=== PATIENT | female | born 1960 | race Two or more races ===

== ENCOUNTER 2020-08-12 07:54 | Outpatient (REF) | payer OTHER, SELFPAY | END 2020-08-12 07:55 | disposition home or self-care (01) | LOC: HO.LAB 07:54 | PROVIDERS: PCP Internal Medicine; Visit Provider Internal Medicine | DX: Z20.828 Contact with and (suspected) exposure to other viral communicable diseases (principal) | CPT/HCPCS: 36415; 87635 ==

== ENCOUNTER 2020-10-06 09:05 | Outpatient (REF) | payer OTHER, SELFPAY ==
[2020-10-06 11:19] LABS: Alanine Aminotransferase 13 U/L (0-31); Albumin Level 4.5 g/dL (3.5-5.0); Alkaline Phosphatase 70 U/L (39-117); Anion Gap 14 (12-20); Aspartate Amino Transferase 16 U/L (5-31); Bilirubin Total 0.7 mg/dL (0.0-1.0); Blood Urea Nitrogen 26 mg/dL (9-16); Calcium 8.2 mg/dL (8.4-10.2); Carbon Dioxide 31 mmol/L (22-29); Chloride 101 mmol/L (96-108); Cholesterol 198 mg/dL; Estimated Glomerular Filt Rate > 60; Glucose Fasting 91 mg/dL (60-99); HDL Cholesterol 52 mg/dL; LDL Cholesterol Calculated 112 mg/dl; Potassium 4.2 mmol/l (3.3-5.1); Sodium 142 mmol/L (135-145); Total Protein 7.7 g/dL (6.5-8.0); Triglycerides 170 mg/dL
[2020-10-06 11:40] LABS: TSH reflex Free T4 0.22 mIU/mL (0.32-4.0); Vitamin D 25-OH Total 38.5 ng/mL (>30)
[2020-10-06 12:26] LABS: Free T4 (Free Thyroxine) 1.37 ng/dL (0.71-1.85)
== END 2020-10-06 09:06 | disposition home or self-care (01) ==
LOC: HO.LAB 09:05
PROVIDERS: PCP Internal Medicine; Visit Provider Internal Medicine
DX: I10 Essential (primary) hypertension (principal); E55.9 Vitamin D deficiency, unspecified; E03.9 Hypothyroidism, unspecified
CPT/HCPCS: 80053; 80061; 82306; 84439; 84443

== ENCOUNTER 2020-10-14 13:23 | Outpatient (REF) | payer OTHER, SELFPAY ==
--- NOTE | 2020-10-14 | MM_ITS ---
EXAMINATION: MM SCREENING DIGITAL BREAST TOMOSYNTHESIS, BILATERAL CLINICAL INFORMATION: Screening. Asymptomatic. Previous reports indicate history of breast surgery. Previous reports indicate history of left breast biopsy. The lifetime risk of breast cancer based on the Tyrer-Cuzick Model is 6%. COMPARISON: Mammography: 02/09/19, 02/07/18, 01/07/17, 03/13/15 TECHNIQUE: Digital breast tomosynthesis is performed in both the craniocaudal and mediolateral oblique views along with computer-aided detection (CAD). Synthesized 2D images are generated from the tomosynthesis. FINDINGS: There are scattered areas of fibroglandular density (ACR BI-RADS breast composition Category b). Right breast: There is an unchanged focal asymmetry in the upper outer right breast. No new suspicious right breast finding. Left breast: There is no change in the architecture in the superficial upper left breast. No new suspicious left breast finding MM/MM tomosynthesis screening BI IMPRESSION: No mammographic evidence of malignancy. No suspicious interval change. ASSESSMENT: BI-RADS 2: Benign RECOMMENDATION: Routine annual mammography screening. This patient's information was entered into a reminder system with a target due date for their next mammogram.
== END 2020-10-14 13:24 | disposition home or self-care (01) ==
LOC: HO.MAMMO 13:23
PROVIDERS: PCP Internal Medicine; Visit Provider Internal Medicine
DX: Z12.31 Encounter for screening mammogram for malignant neoplasm of breast (principal)
CPT/HCPCS: 77063; 77067

== ENCOUNTER 2020-10-19 13:30 | Emergency (ER) | payer OTHER, SELFPAY ==
[2020-10-19 13:45] VITALS: BP 149/89; PULSE 74; RESP 18; TEMP 36.6; O2SAT 99; BMI 25.4
[2020-10-19 16:11] VITALS: BP 151/85; PULSE 77; RESP 16; O2SAT 99
--- NOTE | 2020-10-19 16:11 | ED.DIZZY ---
HPI - Dizziness General Chief Complaint: Dizziness Stated Complaint: Dizziness Time Seen by Provider: 10/19/20 16:11 Source: patient Mode of arrival: ambulatory Limitations: no limitations History of Present Illness HPI Narrative: Patient been feeling dizzy for last 1 week started gradually specially moving her head to the right side also has ringing in the left ear with denies any headache. Also patient complaining of weakness no cough or COVID will get symptom no nausea no vomiting MD elicited complaint: dizziness Onset (ago): week(s) (1) Timing: gradual onset Description: sense of movement Context: change in body position Exacerbating factors: change in body position Relieving factors: remaining still Related Data Previous Rx's Medication Instructions Recorded calcitriol 0.25 mcg capsule 0.25 mcg PO BID 90 Days #180 cap 10/15/20 citalopram 40 mg tablet 20 mg PO DAILY 90 Days #45 tab 10/15/20 hydrochlorothiazide 25 mg tablet 25 mg PO DAILY 90 Days #90 tab 10/15/20 levothyroxine 100 mcg capsule 100 mcg PO DAILY 90 Days #90 cap 10/15/20 Allergies Allergy/AdvReac Type Severity Reaction Status Date / Time prednisone AdvReac Unknown weakness, Verified 10/15/20 15:27 facial flushing Review of Systems Review of Systems: REVIEW OF SYSTEMS: Pertinent positives and negatives are stated above in the history. GEN: no fevers, chills, fatigue HEENT: no nasal congestion, sore throat, ear pain NEURO: no headache,focal weakness PULM: no cough, shortness of breath CV: no chest pain, palpitations, LE edema ABD: no abdominal pain, nausea, vomiting, diarrhea : no dysuria, urgency, frequency SKIN: no rash ROS otherwise negative x 10 PMFSH Past Medical History Medical History (Updated 10/15/20 @ 15:32 by Brianna Cruz MD) Essential hypertension Hypocalcemia Hypovitaminosis D Surgical History (Updated 10/09/20 @ 12:22 by JOI Dwyer) History of breast biopsy History of section History of thyroidectomy Family History Family History (Updated 10/09/20 @ 12:23 by JOI Dwyer) Father Diabetes Stroke Prostate cancer Mother No problems noted. Maternal Grandmother Medical history unknown Social History Social History Alcohol intake: never Smoking Status: Never smoker Smoked in Last 30 Days: No Use of substances other than those prescribed or required for medical reasons: No Advance Directives: No Advance Directives Information Provided: No Physical Exam Vital Signs: Vital Signs: Last Vital Signs Temp 97.8 F 10/19/20 13:45 Pulse 77 10/19/20 16:11 Resp 16 10/19/20 16:11 BP 151/85 H 10/19/20 16:11 Pulse Ox 99 10/19/20 16:11 Body Mass Index 25.4 Appearance: Alert. Oriented X3. No acute distress. Eyes: Pupils equal, round and reactive to light. No nystagmus ENT: Pharynx normal. Tympanic membrane normal bilateral Neck: Normal inspection. Neck supple. CVS: Normal heart rate and rhythm. Pulses normal. Respiratory: No respiratory distress. Breath sounds normal. Abdomen: Soft and nontender. Skin: Skin warm and dry. Normal skin color. Normal skin turgor. Extremities: No lower extremity edema. Good range of movement Neuro: Oriented X 3. No motor deficit. No sensory deficit. No cerebellar signs MDM - Dizziness MDM Narrative Medical decision making narrative: Patient with symptoms matching BPV labs are stable COVID is negative will discharge patient home on meclizine. Patient ambulating steady gait in the ER Differential Diagnosis Differential diagnosis: Likely benign paroxysmal positional vertigo Lab Data Attestation: I reviewed the patient's lab results. Result diagrams: 10/19/20 16:59 10/19/20 16:59 Labs: Lab Results 10/19/20 10/19/20 10/19/20 Range/Units 16:56 16:59 16:59 WBC 6.8 (4.8-10.8) X10*3/uL RBC 4.56 (4.20-5.50) X10*6/uL Hgb 14.3 (12.0-16.0) g/dl Hct 42.1 (37-47) % MCV 92.3 (80-98) fL MCH 31.4 (27.0-33.0) pg MCHC 34.0 (31.0-35.0) g/dl RDW 11.6 (11.0-16.0) % Plt Count 222 (160-400) X10*3/uL MPV 11.3 (9.4-12.3) fL Immature Gran % (Auto) 0.1 (0.0-0.4) % Neut % (Auto) 53.4 (45-73) % Lymph % (Auto) 36.7 (20-40) % [place] % (Auto) 8.9 (2-11) % Eos % (Auto) 0.6 (0-4) % Baso % (Auto) 0.3 (0-2) % Lymph # (Auto) 2.5 (1.2-4.9) X10*3/uL [place] # (Auto) 0.6 (0.1-1.2) X10*3/uL Eos # (Auto) 0.0 (0.0-0.4) X10*3/uL Baso # (Auto) 0.0 (0.0-0.2) X10*3/uL Abs Immat Gran (auto) 0.01 (0.00-0.03) X10*3/uL Absolute Neuts (auto) 3.6 (2.0-8.3) X10*3/uL Absolute Nucleated RBC 0.000 (0.0-0.012) X10*3/uL Nucleated RBC % (auto) 0.0 (0.0-0.2) /100WBC Sodium 143 (135-145) mmol/L Potassium 3.6 (3.3-5.1) mmol/l Chloride 101 (96-108) mmol/L Carbon Dioxide 32 H (22-29) mmol/L Anion Gap 14 (12-20) BUN 21 H (9-16) mg/dL Creatinine 0.93 (0.5-1.4) mg/dL Estim Creat Clear Calc 54.7 Estimated GFR > 60 Random Glucose 94 (60-115) mg/dL Calcium 7.9 L (8.4-10.2) mg/dL Total Bilirubin 0.5 (0.0-1.0) mg/dL Direct Bilirubin 0.2 (0.0-0.5) mg/dL AST 17 (5-31) U/L ALT 14 (0-31) U/L Alkaline Phosphatase 70 (39-117) U/L Total Protein 7.6 (6.5-8.0) g/dL Albumin 4.5 (3.5-5.0) g/dL COVID-19 (JOVITA) Negative (Negative) COVID-19 Clin Com See Note Discharge Plan Discharge Prescriptions: No Action calcitriol 0.25 mcg capsule 0.25 mcg PO BID 90 Days Qty: 180 RF: 3 citalopram 40 mg tablet 20 mg PO DAILY 90 Days Qty: 45 RF: 3 hydrochlorothiazide 25 mg tablet 25 mg PO DAILY 90 Days Qty: 90 RF: 3 levothyroxine 100 mcg capsule 100 mcg PO DAILY 90 Days Qty: 90 RF: 0
[2020-10-19 17:07] LABS: Basophils Percent Auto 0.3 % (0-2); Eosinophils Percent Auto 0.6 % (0-4); Hematocrit 42.1 % (37-47); Hemoglobin 14.3 g/dl (12.0-16.0); Imm Gran Abs Auto 0.01 X10*3/uL (0.00-0.03); Imm Gran Pct Auto 0.1 % (0.0-0.4); Lymphocytes Absolute Auto 2.5 X10*3/uL (1.2-4.9); Lymphocytes Percent Auto 36.7 % (20-40); MANUAL DIFF FLAG NO; Mean Corpuscular Hemoglobin 31.4 pg (27.0-33.0); Mean Corpuscular Volume 92.3 fL (80-98); Mean Platelet Volume 11.3 fL (9.4-12.3); Monocytes Absolute Auto 0.6 X10*3/uL (0.1-1.2); Monocytes Percent Auto 8.9 % (2-11); Neutrophils Absolute Auto 3.6 X10*3/uL (2.0-8.3); Neutrophils Percent Auto 53.4 % (45-73); Platelet Count 222 X10*3/uL (160-400); Red Blood Count 4.56 X10*6/uL (4.20-5.50); Red Cell Distribution Width 11.6 % (11.0-16.0); White Blood Count 6.8 X10*3/uL (4.8-10.8)
[2020-10-19 17:20] LABS: COVID-19 Test Negative (Negative)
[2020-10-19 17:29] LABS: Alanine Aminotransferase 14 U/L (0-31); Albumin Level 4.5 g/dL (3.5-5.0); Alkaline Phosphatase 70 U/L (39-117); Anion Gap 14 (12-20); Aspartate Amino Transferase 17 U/L (5-31); Bilirubin Direct 0.2 mg/dL (0.0-0.5); Bilirubin Total 0.5 mg/dL (0.0-1.0); Blood Urea Nitrogen 21 mg/dL (9-16); Calcium 7.9 mg/dL (8.4-10.2); Carbon Dioxide 32 mmol/L (22-29); Chloride 101 mmol/L (96-108); Creatinine Clr Calc Pharmacy 54.7; Estimated Glomerular Filt Rate > 60; Glucose Random 94 mg/dL (60-115); Potassium 3.6 mmol/l (3.3-5.1); Sodium 143 mmol/L (135-145); Total Protein 7.6 g/dL (6.5-8.0)
[2020-10-19 17:50] LABS: Glucose Urine UA NEG (NEG); Leukocyte Esterase Urine TRACE (NEG); Nitrite Urine NEG (NEG); Urine Blood NEG (NEG); Urine Ketones NEG (NEG); Urine Protein NEG (NEG-TRACE)
[2020-10-19 17:51] LABS: Appearance Urine CLEAR; Color Urine YELLOW
[2020-10-19 17:59] LABS: RBC Urine 0 /HPF (0); Squamous Epithelial Cell Urine 1+ /LPF
== END 2020-10-19 18:18 | disposition home or self-care (01) ==
PROVIDERS: Emergency Provider Internal Medicine; PCP Internal Medicine
DX: R42 Dizziness and giddiness (principal); Z20.828 Contact with and (suspected) exposure to other viral communicable diseases; Z79.899 Other long term (current) drug therapy
CPT/HCPCS: 36415; 80048; 80076; 81001; 85025; 87086; 87147; 87635; 99283; 99284

== ENCOUNTER → 2020-11-10 08:09 | Outpatient (BNVA) | payer OTHER, SELFPAY | PROVIDERS: PCP Internal Medicine; Referring Provider Internal Medicine; Visit Provider Internal Medicine Gastroenterology | DX: K59.09 Other constipation (principal); K21.9 Gastro-esophageal reflux disease without esophagitis | CPT/HCPCS: Q3014 ==

== ENCOUNTER 2020-12-28 19:12 | Emergency (ER) | payer OTHER, SELFPAY ==
[2020-12-28 21:16] VITALS: BP 152/87; PULSE 80; RESP 16; TEMP 36.6; O2SAT 96; BMI 25.4
--- NOTE | 2020-12-28 23:34 | ED.GENADULT ---
HPI - General Adult General Chief complaint: General Medical Stated complaint: water in head Time Seen by Provider: 12/28/20 23:16 Source: patient Mode of arrival: ambulatory Limitations: language barrier History of Present Illness HPI narrative: 60-year-old female with past medical history of GERD, CKD, chronic constipation, hypertension, hypocalcemia, thyroid cancer status post thyroidectomy presents with a strange feeling to the top of her head. She has had this feeling for approximately 1 week, it feels like water is dripping from the top of her head down her neck. This is the 2nd time she has felt this way, the 1st time she was diagnosed with hypokalemia. She does not report any fevers, chills, chest pain or pressure, palpitations, shortness breath, abdominal pain, abdominal distention, dysuria, hematuria, upper respiratory symptoms, trauma, head injury, changes in vision, weakness or edema. Onset (ago): week(s) (1) Location: head Severity: mild Pain Consistency: intermittent Relieving factors: none Associated symptoms: denies other symptoms Treatments prior to arrival: none Related Data Previous Rx's Medication Instructions Recorded calcitriol 0.25 mcg capsule 0.25 mcg PO BID 90 Days #180 cap 10/15/20 citalopram 40 mg tablet 20 mg PO DAILY 90 Days #45 tab 10/15/20 levothyroxine 100 mcg capsule 100 mcg PO DAILY 90 Days #90 cap 10/15/20 sennosides 8.6 mg capsule 8.6 mg PO DAILY PRN 60 Days #30 cap 11/10/20 meclizine 25 mg tablet 25 mg PO TID PRN #20 tab 12/02/20 hydrochlorothiazide 25 mg tablet 25 mg PO DAILY 90 Days #90 tab 12/04/20 cefuroxime axetil 500 mg PO Q12H 5 Days #10 tab 12/29/20 Allergies Allergy/AdvReac Type Severity Reaction Status Date / Time prednisone AdvReac Unknown weakness, Verified 12/28/20 21:23 facial flushing Review of Systems Review of Systems: Constitutional: No Fever, No Chills ENT/Mouth: No Ear Pain, No Hoarseness, No sore throat Eyes: No Eye Pain, No Swelling, No Redness, No Foreign Body Cardiovascular: No Chest Pain, No SOB Respiratory: No Cough, No Dyspnea Gastrointestinal: No Nausea, No Vomiting, No Diarrhea, No abdominal Pain Genitourinary: No Dysuria, No Hematuria Musculoskeletal: No joint pain, No Myalgias, No Joint Swelling Skin: No Skin lacerations, No rash Neuro: No Weakness, No Numbness, No Paresthesias, No Loss of Consciousness, No Dizziness, No Headache Psych: No Anxiety/Panic, No Depression Heme/Lymph: no easy bruising, no Lymphadenopathy Endocrine: No Polyuria, No Polydipsia Yes all other systems are reviewed and are negative [facility] Past Medical History Attestation statement: The following information was validated with the patient. Source: old records reviewed Medical History (Updated 12/29/20 @ 00:56 by Liz Solo NP) Essential hypertension Hypertension Hypocalcemia Hypovitaminosis D Thyroid cancer Surgical History History of breast biopsy History of section History of colonoscopy History of thyroidectomy Hx of endoscopy Family History Family History Father Diabetes Stroke Prostate cancer Mother No problems noted. Maternal Grandmother Medical history unknown Social History Social History Alcohol intake: never Smoking Status: Never smoker Advance Directives: No Advance Directives Information Provided: No Physical Exam Vital Signs: Vital Signs: Last Vital Signs Temp 97.8 F 12/28/20 21:16 Pulse 85 12/28/20 23:46 Resp 18 12/28/20 23:46 BP 140/83 H 12/28/20 23:46 Pulse Ox 98 12/28/20 23:46 Body Mass Index 25.4 Appearance: Alert. Oriented X3. No acute distress. Eyes: Pupils equal, round and reactive to light. ENT: Pharynx normal. Neck: Normal inspection. Neck supple. CVS: Normal heart rate and rhythm. Pulses normal. Respiratory: No respiratory distress. Breath sounds normal. Abdomen: Soft and nontender. Skin: Skin warm and dry. Normal skin color. Normal skin turgor. Extremities: No lower extremity edema. Neuro: No motor deficit. No sensory deficit. Course Course Course Narrative: 60-year-old female with past medical history of GERD, CKD, chronic constipation, hypertension, hypocalcemia, thyroid cancer status post thyroidectomy presents with a strange feeling to the top of her head. Plan of care is for CBC, Chem 7, urinalysis, COVID swab. Labs are unremarkable with the exception of an elevated BUN consistent with dehydration and prior values elevated at 28. At this time patient is able to eat and drink, we will encourage fluids. Calcium is 8.2, positive for UTI. We will treat with cefuroxime b.i.d.. Patient was advised to follow up with primary care physician to repeat chemistries as well as follow-up for UTI. Patient verbalized understanding of and agrees to plan of care discharge home. medical coding technician utilized for all correspondence. Google translate utilized for discharge instructions. Medical Decision Making Lab Data Result diagrams: 12/28/20 23:55 12/28/20 23:55 Labs: Lab Results 12/28/20 12/28/20 12/29/20 Range/Units 23:55 23:55 00:03 WBC 8.5 (4.8-10.8) X10*3/uL RBC 4.49 (4.20-5.50) X10*6/uL Hgb 13.9 (12.0-16.0) g/dl Hct 42.0 (37-47) % MCV 93.5 (80-98) fL MCH 31.0 (27.0-33.0) pg MCHC 33.1 (31.0-35.0) g/dl RDW 11.6 (11.0-16.0) % Plt Count 225 (160-400) X10*3/uL MPV 12.0 (9.4-12.3) fL Immature Gran % (Auto) 0.6 H (0.0-0.4) % Neut % (Auto) 62.2 (45-73) % Lymph % (Auto) 30.9 (20-40) % [place] % (Auto) 5.4 (2-11) % Eos % (Auto) 0.5 (0-4) % Baso % (Auto) 0.4 (0-2) % Lymph # (Auto) 2.6 (1.2-4.9) X10*3/uL [place] # (Auto) 0.5 (0.1-1.2) X10*3/uL Eos # (Auto) 0.0 (0.0-0.4) X10*3/uL Baso # (Auto) 0.0 (0.0-0.2) X10*3/uL Abs Immat Gran (auto) 0.05 H (0.00-0.03) X10*3/uL Absolute Neuts (auto) 5.3 (2.0-8.3) X10*3/uL Absolute Nucleated RBC 0.000 (0.0-0.012) X10*3/uL Nucleated RBC % (auto) 0.0 (0.0-0.2) /100WBC Sodium 143 (135-145) mmol/L Potassium 3.9 (3.3-5.1) mmol/L Chloride 105 (96-108) mmol/L Carbon Dioxide 27 (22-29) mmol/L Anion Gap 15 (12-20) BUN 38 H D (9-16) mg/dL Creatinine 1.22 (0.5-1.4) mg/dL Estim Creat Clear Calc 41.7 Estimated GFR 45 Random Glucose 102 (60-115) mg/dL Calcium 8.2 L (8.4-10.2) mg/dL Magnesium 2.1 (1.6-2.6) mg/dL Urine Color YELLOW Urine Appearance CLEAR Urine pH 6.0 (5.0-8.0) Ur Specific [place] >= 1.030 H (1.005-1.025) Urine Protein NEG (NEG-TRACE) MG/DL Urine Glucose (UA) NEG (NEG) MG/DL Urine Ketones NEG (NEG) MG/DL Urine Blood NEG (NEG) Urine Nitrite NEG (NEG) Ur Leukocyte Esterase TRACE H (NEG) Urine RBC 1-4 (0) /HPF Urine WBC 5-9 H (0-4) /HPF Ur Squamous Epith Cells 1+ /LPF Urine Bacteria 1+ /LPF Urine Mucus 2+ /LPF Coronavirus (PCR) (Negative) Influenza Type A (PCR) (Negative) Influenza Type B (PCR) (Negative) RSV RNA Qual (PCR) (Negative) 12/29/20 Range/Units 00:04 WBC (4.8-10.8) X10*3/uL RBC (4.20-5.50) X10*6/uL Hgb (12.0-16.0) g/dl Hct (37-47) % MCV (80-98) fL MCH (27.0-33.0) pg MCHC (31.0-35.0) g/dl RDW (11.0-16.0) % Plt Count (160-400) X10*3/uL MPV (9.4-12.3) fL Immature Gran % (Auto) (0.0-0.4) % Neut % (Auto) (45-73) % Lymph % (Auto) (20-40) % [place] % (Auto) (2-11) % Eos % (Auto) (0-4) % Baso % (Auto) (0-2) % Lymph # (Auto) (1.2-4.9) X10*3/uL [place] # (Auto) (0.1-1.2) X10*3/uL Eos # (Auto) (0.0-0.4) X10*3/uL Baso # (Auto) (0.0-0.2) X10*3/uL Abs Immat Gran (auto) (0.00-0.03) X10*3/uL Absolute Neuts (auto) (2.0-8.3) X10*3/uL Absolute Nucleated RBC (0.0-0.012) X10*3/uL Nucleated RBC % (auto) (0.0-0.2) /100WBC Sodium (135-145) mmol/L Potassium (3.3-5.1) mmol/L Chloride (96-108) mmol/L Carbon Dioxide (22-29) mmol/L Anion Gap (12-20) BUN (9-16) mg/dL Creatinine (0.5-1.4) mg/dL Estim Creat Clear Calc Estimated GFR Random Glucose (60-115) mg/dL Calcium (8.4-10.2) mg/dL Magnesium (1.6-2.6) mg/dL Urine Color Urine Appearance Urine pH (5.0-8.0) Ur Specific [place] (1.005-1.025) Urine Protein (NEG-TRACE) MG/DL Urine Glucose (UA) (NEG) MG/DL Urine Ketones (NEG) MG/DL Urine Blood (NEG) Urine Nitrite (NEG) Ur Leukocyte Esterase (NEG) Urine RBC (0) /HPF Urine WBC (0-4) /HPF Ur Squamous Epith Cells /LPF Urine Bacteria /LPF Urine Mucus /LPF Coronavirus (PCR) NEGATIVE (Negative) Influenza Type A (PCR) NEGATIVE (Negative) Influenza Type B (PCR) NEGATIVE (Negative) RSV RNA Qual (PCR) NEGATIVE (Negative) Discharge Plan Discharge Clinical Impression: Dehydration Urinary tract infection Qualifiers: Urinary tract infection type: acute cystitis Hematuria presence: with hematuria Qualified Code(s): N30.01 - Acute cystitis with hematuria Patient Disposition: Home, Self-Care Instructions: Dehydration (ED), Urinary Tract Infection in Women (ED) Additional Instructions: Te evaluaron por neto extra?a sensaci?n en la parte superior de tu glendy. La miclisis indica neto UTI. Por favor, tome cefuroxime dos veces al d?a price los pr?ximos 5 d?as. Los valores del laboratorio indican deshidrataci?n. Por favor, trate de beber m?s l?quidos. Seguimiento con el m?dico de atenci?n primaria a finales de esta semana para repetir los valores de laboratorio. Alva nivel de calcio fue de 8,2, normal es de 8,4. [place] por elegir prinec departamento de emergencias para alva evaluaci?n. Por favor, wilma un seguimiento con el m?dico de atenci?n primaria seg?n sea necesario. Regrese al servicio de emergencias para cualquier s?ntoma nuevo, preocupante o que empeore. You were evaluated for a strange feeling to the top of your head. Urinalysis indicates a UTI. Please take cefuroxime twice a day for the next 5 days. Lab values indicate dehydration. Please try to drink more fluids. Follow-up with primary care physician later this week for repeat lab values. Your calcium level was 8.2, normal is 8.4. Thank you for choosing this emergency department for evaluation. Please follow-up with primary care physician as needed. Return to the emergency department for any new, concerning, or worsening symptoms. Prescriptions: New cefuroxime axetil 500 mg tablet 500 mg PO Q12H 5 Days Qty: 10 RF: 0 No Action meclizine 25 mg tablet 25 mg PO TID PRN (Reason: dizziness) Qty: 20 RF: 3 hydrochlorothiazide 25 mg tablet 25 mg PO DAILY 90 Days Qty: 90 RF: 3 calcitriol 0.25 mcg capsule 0.25 mcg PO BID 90 Days Qty: 180 RF: 3 citalopram 40 mg tablet 20 mg PO DAILY 90 Days Qty: 45 RF: 3 levothyroxine 100 mcg capsule 100 mcg PO DAILY 90 Days Qty: 90 RF: 0 senna 8.6 mg capsule 8.6 mg PO DAILY PRN (Reason: constipation) 60 Days Qty: 30 RF: 5 Interventions: ED Discharge Assessment Last Done: 12/29/20 01:17 Discharge Date/Time: 12/29/20 01:22
[2020-12-28 23:46] VITALS: BP 140/83; PULSE 85; RESP 18; O2SAT 98
[2020-12-29 00:06] LABS: MANUAL DIFF FLAG NO
[2020-12-29 00:07] LABS: Basophils Percent Auto 0.4 % (0-2); Eosinophils Percent Auto 0.5 % (0-4); Hemoglobin 13.9 g/dl (12.0-16.0); Imm Gran Abs Auto 0.05 X10*3/uL (0.00-0.03); Imm Gran Pct Auto 0.6 % (0.0-0.4); Lymphocytes Absolute Auto 2.6 X10*3/uL (1.2-4.9); Lymphocytes Percent Auto 30.9 % (20-40); Mean Corpuscular HGB Conc 33.1 g/dl (31.0-35.0); Mean Corpuscular Volume 93.5 fL (80-98); Monocytes Absolute Auto 0.5 X10*3/uL (0.1-1.2); Monocytes Percent Auto 5.4 % (2-11); Neutrophils Absolute Auto 5.3 X10*3/uL (2.0-8.3); Neutrophils Percent Auto 62.2 % (45-73); Platelet Count 225 X10*3/uL (160-400); Red Blood Count 4.49 X10*6/uL (4.20-5.50); Red Cell Distribution Width 11.6 % (11.0-16.0); White Blood Count 8.5 X10*3/uL (4.8-10.8)
[2020-12-29 00:24] LABS: Appearance Urine CLEAR; Color Urine YELLOW; Glucose Urine UA NEG (NEG); Leukocyte Esterase Urine TRACE (NEG); Nitrite Urine NEG (NEG); Specific Gravity - Urine >= 1.030 (1.005-1.025); UACC Culture Trigger YES; Urine Blood NEG (NEG); Urine Ketones NEG (NEG); Urine Protein NEG (NEG-TRACE)
[2020-12-29 00:25] LABS: Bacteria Urine 1+ /LPF; Mucus Urine 2+ /LPF; Squamous Epithelial Cell Urine 1+ /LPF
[2020-12-29 00:32] LABS: Anion Gap 15 (12-20); Blood Urea Nitrogen 38 mg/dL (9-16); Calcium 8.2 mg/dL (8.4-10.2); Carbon Dioxide 27 mmol/L (22-29); Chloride 105 mmol/L (96-108); Creatinine Clr Calc Pharmacy 41.7; Estimated Glomerular Filt Rate 45; Glucose Random 102 mg/dL (60-115); Magnesium 2.1 mg/dL (1.6-2.6); Potassium 3.9 mmol/L (3.3-5.1); Sodium 143 mmol/L (135-145)
[2020-12-29 01:28] LABS: Influenza A PCR NEGATIVE (Negative); Influenza B PCR NEGATIVE (Negative); Resp Syncy Virus RNA Qual PCR NEGATIVE (Negative); SARS COV2 PCR INHOUSE NEGATIVE (Negative)
== END 2020-12-29 01:22 | disposition home or self-care (01) ==
PROVIDERS: Nurse Practitioner Family; Emergency Provider Internal Medicine
DX: N30.01 Acute cystitis with hematuria (principal); M54.2 Cervicalgia; Z79.899 Other long term (current) drug therapy; Z20.822 Contact with and (suspected) exposure to COVID-19
CPT/HCPCS: 0241U; 36415; 80048; 81001; 81003; 83735; 85025; 87086; 99283; 99284

== ENCOUNTER 2021-04-28 09:50 | Outpatient (REF) | payer OTHER, SELFPAY ==
[2021-04-28 11:25] LABS: Alanine Aminotransferase 13 U/L (0-31); Albumin Level 4.3 g/dL (3.5-5.0); Alkaline Phosphatase 66 U/L (39-117); Anion Gap 12 (12-20); Aspartate Amino Transferase 17 U/L (5-31); Bilirubin Total 0.5 mg/dL (0.0-1.0); Blood Urea Nitrogen 26 mg/dL (9-16); Calcium 7.9 mg/dL (8.4-10.2); Carbon Dioxide 33 mmol/L (22-29); Chloride 102 mmol/L (96-108); Estimated Glomerular Filt Rate 52; Glucose Fasting 79 mg/dL (60-99); Potassium 3.3 mmol/L (3.3-5.1); Sodium 144 mmol/L (135-145); Total Protein 7.2 g/dL (6.5-8.0)
[2021-04-28 11:48] LABS: TSH reflex Free T4 0.87 uIU/mL (0.32-4.0)
[2021-05-02 15:22] LABS: Vitamin D 25-OH, D2 <4 ng/mL; Vitamin D 25-OH, D3 41 ng/mL; Vitamin D 25-OH, Total 41 ng/mL (30-100)
== END 2021-04-28 09:51 | disposition home or self-care (01) ==
LOC: HO.LAB 09:50
PROVIDERS: PCP Internal Medicine; Visit Provider Internal Medicine
DX: E55.9 Vitamin D deficiency, unspecified (principal); E03.9 Hypothyroidism, unspecified
CPT/HCPCS: 36415; 80053; 82306; 84443

== ENCOUNTER → 2021-05-21 08:43 | Outpatient (BNVA) | payer OTHER, SELFPAY | PROVIDERS: PCP Internal Medicine; Visit Provider Internal Medicine Gastroenterology | CPT/HCPCS: Q3014 ==

== ENCOUNTER 2021-07-23 06:15 | Outpatient (REF) | payer OTHER, SELFPAY ==
[2021-07-23 09:03] LABS: Alanine Aminotransferase 13 U/L (0-31); Albumin Level 4.3 g/dL (3.5-5.0); Alkaline Phosphatase 63 U/L (39-117); Anion Gap 12 (12-20); Aspartate Amino Transferase 15 U/L (5-31); Bilirubin Total 0.9 mg/dL (0.0-1.0); Blood Urea Nitrogen 33 mg/dL (9-16); Calcium 8.5 mg/dL (8.4-10.2); Carbon Dioxide 30 mmol/L (22-29); Chloride 101 mmol/L (96-108); Cholesterol 198 mg/dL; Estimated Glomerular Filt Rate 50; Glucose Fasting 87 mg/dL (60-99); HDL Cholesterol 57 mg/dL; LDL Cholesterol Calculated 110 mg/dl; Potassium 3.9 mmol/L (3.3-5.1); Sodium 139 mmol/L (135-145); Total Protein 7.4 g/dL (6.5-8.0); Triglycerides 156 mg/dL
[2021-07-23 09:35] LABS: Thyroid Stimulating Hormone 0.77 uIU/mL (0.32-4.0)
[2021-07-23 09:36] LABS: TSH reflex Free T4 0.79 uIU/mL (0.32-4.0)
[2021-07-28 15:26] LABS: Vitamin D 25-OH, D2 <4 ng/mL; Vitamin D 25-OH, D3 33 ng/mL; Vitamin D 25-OH, Total 33 ng/mL (30-100)
== END 2021-07-23 06:16 | disposition home or self-care (01) ==
LOC: HO.LAB 06:15
PROVIDERS: PCP Internal Medicine; Visit Provider Internal Medicine
DX: E55.9 Vitamin D deficiency, unspecified (principal); E03.9 Hypothyroidism, unspecified; E78.5 Hyperlipidemia, unspecified; I10 Essential (primary) hypertension
CPT/HCPCS: 36415; 80053; 80061; 82306; 84443

== ENCOUNTER 2021-10-16 08:01 | Outpatient (REF) | payer OTHER, SELFPAY ==
--- NOTE | ~2021-10-16 | MM_ITS ---
EXAMINATION: MM SCREENING DIGITAL BREAST TOMOSYNTHESIS, BILATERAL CLINICAL INFORMATION: Screening. Asymptomatic. Remote history left breast biopsy 1992. The lifetime risk of breast cancer based on the Tyrer-Cuzick Model is 5%. COMPARISON: Mammography: 10/14/2020, 02/09/2019, 02/07/2018 TECHNIQUE: Digital breast tomosynthesis is performed in both the craniocaudal and mediolateral oblique views along with computer-aided detection (CAD). Synthesized 2D images are generated from the tomosynthesis. FINDINGS: There are scattered areas of fibroglandular density (ACR BI-RADS breast composition Category b). There is a 0.5 cm nodule posterior upper left breast on MLO view with ill-defined margins. This represents change from prior exams. Patient will be recalled for additional imaging. Remainder of the bilateral breasts show no significant changes. There is an old intramammary node again seen posterior upper outer right breast. Scattered bilateral round and predominantly dermal calcifications are again noted in each breast. Right breast unremarkable. MM/MM tomosynthesis screening BI IMPRESSION: 1. Left: Nodule posterior upper breast 0.5 cm with ill-defined margins. 2. Right: No mammographic evidence of malignancy. ASSESSMENT: BI-RADS 0: Incomplete - Need Additional Imaging Evaluation RECOMMENDATION: 1. Additional views of the left breast (spot MLO, exaggerated CC). 2. Targeted ultrasound left breast. 3. Radiology department staff will contact the patient for additional imaging. This patient's information was entered into a reminder system with a target due date for their next mammogram.
== END 2021-10-16 08:02 | disposition home or self-care (01) ==
LOC: HO.MAMMO 08:01
PROVIDERS: Visit Provider Internal Medicine
DX: Z12.31 Encounter for screening mammogram for malignant neoplasm of breast (principal)
CPT/HCPCS: 77063; 77067

== ENCOUNTER 2021-10-20 02:02 | Emergency (ER) | payer OTHER, SELFPAY ==
[2021-10-20 02:04] VITALS: BP 157/91; PULSE 87; RESP 20; TEMP 36.6; O2SAT 98; BMI 25.4
--- NOTE | 2021-10-20 03:32 | ED.GENADULT ---
HPI - General Adult General Chief complaint: General Medical Stated complaint: migraine Time Seen by Provider: 10/20/21 03:32 Source: patient and drawing operator Mode of arrival: ambulatory History of Present Illness HPI narrative: 61-year-old female with reports of headache not associated with speech or hearing abnormalities and denies any extremity numbness / tingling / weakness or facial droop. Patient states that her headache has completely resolved at this time and denies being COVID-19 vaccinated but is requesting a vaccination at this time. She is currently under the care of Oncology in [place] for thyroid cancer. She declines medications at this time. Related Data Previous Rx's Medication Instructions Recorded levothyroxine 100 mcg capsule 100 mcg PO DAILY 90 Days #90 cap 10/15/20 hydrochlorothiazide 25 mg tablet 25 mg PO DAILY 90 Days #90 tab 08/06/21 calcitriol 0.25 mcg capsule 0.25 mcg PO TID 90 Days #270 cap 10/16/21 clotrimazole 1 % topical cream 1 appl TOPICAL BID 14 Days #15 g 10/16/21 Allergies Allergy/AdvReac Type Severity Reaction Status Date / Time prednisone AdvReac Intermediate weakness, Verified 10/16/21 08:44 facial flushing Review of Systems Review of Systems: Pertinent positives and negatives as stated in HPI 10 point review of systems is otherwise negative. PMFSH Past Medical History Source: nursing notes reviewed Medical History Essential hypertension Headache Hypocalcemia Hypovitaminosis D Sinus pain Thyroid cancer Surgical History History of breast biopsy History of section History of colonoscopy History of thyroidectomy Hx of endoscopy Family History Family History Father Diabetes Stroke Prostate cancer Mother No problems noted. Maternal Grandmother Medical history unknown Social History Social History Housing: Apartment Alcohol intake: current Alcohol intake frequency: holidays/special occasions only Alcohol type: wine Patient Tobacco Use Status: Never used Tobacco Second Hand Smoke Exposure: No Advance Directives: No Advance Directives Information Provided: Yes service: No Current occupational status: unemployed Current occupational exposures/hazards: No Physical Exam Vital Signs: Vital Signs: Last Vital Signs Temp 97.8 F 10/20/21 02:04 Pulse 87 10/20/21 02:04 Resp 20 10/20/21 02:04 BP 157/91 H 10/20/21 02:04 Pulse Ox 98 10/20/21 02:04 BMI result Body Mass Index 25.4 VITAL SIGNS: Reviewed. GENERAL: Well developed, well nourished, in no acute distress. HEAD: Normocephalic/atraumatic EYES: PERRLA, EOMI intact without pain, no nystagmus EARS: Ext canals without abnormality, TMs non-bulging and non-erythematous NOSE: Nares patent bilateral OROPHARYNX: no oral lesions noted, posterior pharynx clear and non-erythematous without noted tonsillar enlargement/erythema/exudates NECK: Supple, no adenopathy LUNGS: Normal breath sounds. No adventitious sounds or accessory muscle use. SpO2<98> CARDIOVASCULAR: Regular rate and rhythm without noted murmurs, no JVD or lower extremity edema. ABDOMEN: Soft, non-tender, non-distended with bowel sounds. MUSCULOSKELETAL: No tenderness, deformities, or effusions noted on gross inspection. EXTREMITIES: No cyanosis, clubbing or edema. SKIN: Inspection of the skin reveals no rashes NEUROLOGIC: Alert and oriented x 4. Strength and sensation to light touch were grossly intact x 4 , no facial asymmetry, no pronator drift, cranial nerves 2-12 are grossly intact, cerebellar testing is without gross abnormalities. Course Course Course Narrative: 61-year-old female with history and clinical presentation most consistent with request for COVID-19 testing and is declining medication at this time. In addition, patient is without neurological findings and no concerning features within patient's shared history. She is neither febrile nor she short of breath or complaining of chest pain / palpitations. Review of COVID-19 testing is negative for findings and this was communicated to her via canal equipment mechanic. She was encouraged to follow-up with primary care provider. Medical Decision Making Lab Data Labs: Lab Results 10/20/21 Range/Units 03:52 COVID-19 (JOVITA) Negative (Negative) COVID-19 Clin Com See Note Discharge Plan Discharge Clinical Impression: Encounter for laboratory testing for COVID-19 virus, Sensation disturbance of skin Patient Disposition: Home, Self-Care Instructions: Paresthesia (ED) Additional Instructions: 1. Coleman un seguimiento con el proveedor de atenci?n primaria para neto evaluaci?n adicional de las sensaciones en la piel que tiene debajo del cuero cabelludo. 2. Hoy le hicieron la prueba de COVID-19 y result? negativo. Regrese a la arthur de emergencias si los s?ntomas empeoran. Prescriptions: No Action levothyroxine 100 mcg capsule 100 mcg PO DAILY 90 Days Qty: 90 RF: 0 hydrochlorothiazide 25 mg tablet 25 mg PO DAILY 90 Days Qty: 90 RF: 1 clotrimazole 1 % cream 1 appl topical BID 14 Days Qty: 15 RF: 0 calcitriol 0.25 mcg capsule 0.25 mcg PO TID 90 Days Qty: 270 RF: 3 Print Language: Faroese
[2021-10-20 04:14] LABS: COVID-19 Test Negative (Negative)
[2021-10-20 05:41] VITALS: BP 147/65; PULSE 71; RESP 18
== END 2021-10-20 05:42 | disposition home or self-care (01) ==
PROVIDERS: Emergency Provider Student in an Organized Health Care Education/Training Program
DX: R20.8 Other disturbances of skin sensation (principal); R51.9 Headache, unspecified; Z20.822 Contact with and (suspected) exposure to COVID-19; I10 Essential (primary) hypertension; Z85.850 Personal history of malignant neoplasm of thyroid
CPT/HCPCS: 36415; 87635; 99283

== ENCOUNTER 2021-10-21 08:57 | Outpatient (REF) | payer OTHER, SELFPAY ==
--- NOTE | ~2021-10-21 | MM_ITS ---
EXAMINATION: MM DIAGNOSTIC DIGITAL BREAST TOMOSYNTHESIS, LEFT US DIAGNOSTIC ULTRASOUND BREAST, LEFT CLINICAL INFORMATION: Recall from screening for 5 mm nodule with ill-defined margins posterior upper left breast. COMPARISON: Mammography: 10/16/2021, 10/14/2020, 02/09/2019, 02/07/2018 TECHNIQUE: Digital breast tomosynthesis is performed. 2D images are generated from the tomosynthesis. The following views are obtained: Spot MLO, spot exaggerated CC. Ultrasound left breast is targeted to the posterior upper outer quadrant and axilla. Grayscale imaging and color Doppler are performed without and with harmonics. FINDINGS: There are scattered areas of fibroglandular density (ACR BI-RADS breast composition Category b). The additional views again demonstrate nodule with incompletely defined margins posterior upper outer quadrant. This represents change from prior studies. Ultrasound demonstrates a hypoechoic nodule 2:00 position 12 cm from nipple measuring approximately 5 x 4 mm. Margins are incompletely circumscribed. There is no increased or decreased through transmission of sound. No associated color flow. This is believed to correspond to the finding on mammography. Additional imaging left axilla shows no lymphadenopathy. Results are discussed with the patient at time of visit. Ultrasound-guided core biopsy is recommended. MM/MM tomosynthesis added views L IMPRESSION: 5 mm nodule with indistinct margins posterior upper outer left breast, hypoechoic on ultrasound. ASSESSMENT: BI-RADS 4: Suspicious RECOMMENDATION: Ultrasound-guided core biopsy left breast nodule. This patient's information was entered into a reminder system with a target due date for their next mammogram.
== END 2021-10-21 08:58 | disposition home or self-care (01) ==
LOC: HO.MAMMO 08:57
PROVIDERS: PCP Internal Medicine; Visit Provider Internal Medicine
DX: N63.21 Unspecified lump in the left breast, upper outer quadrant (principal)
CPT/HCPCS: 76642; 77061; 77065

== ENCOUNTER → 2021-10-29 13:42 | Outpatient (BNVA) | payer OTHER, SELFPAY | PROVIDERS: PCP Internal Medicine; Referring Provider Internal Medicine; Visit Provider Internal Medicine Gastroenterology | DX: Z13.89 Encounter for screening for other disorder (principal) | CPT/HCPCS: 99212 ==

== ENCOUNTER 2021-11-04 10:00 | Outpatient (REF) | payer OTHER, SELFPAY ==
--- NOTE | ~2021-11-04 | MM_ITS ---
EXAMINATION: ULTRASOUND GUIDED CORE BIOPSY BREAST, LEFT POST PROCEDURE DIGITAL BREAST TOMOSYNTHESIS, LEFT CLINICAL INFORMATION: Nodule posterior upper outer left breast 5 x 4 mm with incompletely circumscribed margins. COMPARISON: Mammography 10/21/2021, 10/16/2021, 10/14/2020, targeted left breast ultrasound 10/21/2021. FINDINGS: Proper informed consent is obtained from the patient after discussion of the procedure, potential risks and complications, and alternatives. Patient was given an opportunity for questions. The patient appeared to understand. The patient consented to the biopsy procedure but declined biopsy clip placement. Hospital provided bilingual interpreter assisted for consent and throughout procedure. GUIDANCE: Ultrasound-guided; aseptic technique. LESION: Nodule posterior upper outer left breast 5 mm. APPROACH: Oblique lateral medial. ANESTHESIA: 10 mL carbonated 1% lidocaine. DERMATOTOMY: Single skin dawson dermatotomy performed. NEEDLE: 14-gauge Achieve core biopsy device with 13.5-gauge co-axial guide needle. CORES: 5. CLIP: Declined by patient at time of consent and again after tissue sampling before removing guide needle. POST PROCEDURE UNILATERAL DIGITAL BREAST TOMOSYNTHESIS, LEFT: The post biopsy digital breast tomosynthesis is performed in separate room using separate digital mammography equipment from the biopsy procedure. Exaggerated CC and MLO views are obtained. 2D synthesized images are generated from the tomography. There are scattered areas of fibroglandular density (breast composition category: b). Biopsy site changes are present in the expected vicinity of the index lesion seen on prior mammography. The patient tolerated the procedure well. No immediate complications. Home instructions reviewed with the patient. Final pathology results are pending. MM/MM tomosynthesis diagnostic LT IMPRESSION: 1. Status post ultrasound-guided core biopsy left breast. No clip placement at patient request. 2. Pathology pending. An addendum report will be issued.
[2021-11-04] MEDS: Sodium Bicarbonate 8.4% 50 MEQ/50 ML VIAL SUBCUT (11:07)
[2021-11-04] MEDS: Lidocaine HCl 1 % 20 ML VIAL 9 ML SUBCUT (11:08)
== END 2021-11-04 10:01 | disposition home or self-care (01) ==
LOC: HO.MAMMO 10:00
PROVIDERS: Visit Provider Surgery
DX: N63.21 Unspecified lump in the left breast, upper outer quadrant (principal)
CPT/HCPCS: 19083; 77061; 77065; 88305; 88342; 88360; 99202

== ENCOUNTER → 2021-11-12 08:27 | Outpatient (BNVA) | payer OTHER, SELFPAY | PROVIDERS: PCP Internal Medicine; Referring Provider Internal Medicine; Visit Provider Surgery | DX: N63.0 Unspecified lump in unspecified breast (principal); C50.919 Malignant neoplasm of unspecified site of unspecified female breast | CPT/HCPCS: 99212 ==

== ENCOUNTER 2021-11-16 07:55 | Emergency (ER) | payer OTHER, SELFPAY ==
[2021-11-16 08:11] VITALS: BP 116/76; PULSE 94; RESP 18; TEMP 36.8; O2SAT 96; BMI 24.8
[2021-11-16 08:34] LABS: COVID-19 Test Positive (Negative)
[2021-11-16 08:45] LABS: IDNOW Serial# 9DD0AD1C; Strep A Nucleic Acid Negative (Negative)
--- NOTE | 2021-11-16 09:02 | ED.GENADULT ---
HPI - General Adult General Chief complaint: General Medical Stated complaint: sore throat Time Seen by Provider: 11/16/21 09:02 Source: patient Mode of arrival: ambulatory Limitations: no limitations History of Present Illness HPI narrative: 61 y/o female presents to the ER with a sore throat for the last 3 days. She has been eating and drinking normally. She denies any fevers, chest pain, shortness of breath. She says her only symptom is a sore throat. She otherwise feels okay. She is on vaccinated for COVID-19. She has had no known exposures to the virus. MD complaint: Sore throat Onset (ago): day(s) (3) Location: mouth Radiation: non-radiation Severity: moderate Quality: stabbing and aching Pain Consistency: constant Relieving factors: none Exacerbating factors: eating Associated symptoms: denies other symptoms Treatments prior to arrival: none Related Data Home Medications Medication Instructions Recorded Confirmed buspirone 5 mg tablet 5 mg PO BID 11/04/21 11/13/21 citalopram 20 mg tablet 20 mg PO DAILY 11/04/21 11/13/21 levothyroxine 100 mcg tablet 100 mcg PO DAILY 11/04/21 11/13/21 sennosides 8.6 mg-docusate sodium 1 tab PO DAILY 11/04/21 11/12/21 50 mg tablet (Senna Plus) Previous Rx's Medication Instructions Recorded levothyroxine 100 mcg capsule 100 mcg PO DAILY 90 Days #90 cap 10/15/20 hydrochlorothiazide 25 mg tablet 25 mg PO DAILY 90 Days #90 tab 08/06/21 calcitriol 0.25 mcg capsule 0.25 mcg PO TID 90 Days #270 cap 10/16/21 clotrimazole 1 % topical cream 1 appl TOPICAL BID 14 Days #15 g 10/16/21 sennosides 8.6 mg-docusate sodium 1 tab-cap PO BEDTIME 60 Days #60 10/29/21 50 mg capsule (Senna Plus) cap Allergies Allergy/AdvReac Type Severity Reaction Status Date / Time prednisone AdvReac Intermediate weakness, Verified 11/12/21 08:43 facial flushing Review of Systems Review of Systems: Constitutional: No Fever, No Chills ENT/Mouth: + sore throat, No Rhinorrhea, No Swallowing Difficulty Cardiovascular: No Chest Pain, No SOB Respiratory: No Cough, No Sputum, No Wheezing, No dyspnea Gastrointestinal: No Nausea, No Vomiting, No Diarrhea, No abdominal Pain Musculoskeletal: No joint pain, No Myalgias Skin: No Skin Lesions, No rash Neuro: No Dizziness, No Headache Heme/Lymph: No Lymphadenopathy PMFSH Past Medical History Medical History Breast nodule Essential hypertension Headache Hypocalcemia Hypovitaminosis D Invasive ductal carcinoma of breast Sinus pain Thyroid cancer Surgical History History of breast biopsy History of section History of colonoscopy History of thyroidectomy Hx of endoscopy Family History Family History Father Diabetes Stroke Prostate cancer Mother No problems noted. Maternal Grandmother Medical history unknown Family/Other Breast cancer Social History Social History Housing: Apartment Alcohol intake: current Alcohol intake frequency: holidays/special occasions only Alcohol type: wine Patient Tobacco Use Status: Never used Tobacco Second Hand Smoke Exposure: No Advance Directives: No Advance Directives Information Provided: No Patient : No service: No Current occupational status: unemployed Current occupational exposures/hazards: No Physical Exam Vital Signs: Vital Signs: Last Vital Signs Temp 98.2 F 11/16/21 08:11 Pulse 94 11/16/21 08:11 Resp 18 11/16/21 08:11 BP 116/76 11/16/21 08:11 Pulse Ox 96 11/16/21 08:11 BMI result Body Mass Index 24.8 Appearance: Alert. Oriented X3. No acute distress. Eyes: Pupils equal, round and reactive to light. ENT: Pharynx with moderate posterior erythema, generalized. No tonsillar swelling or exudate. Uvula midline. Voice normal. Neck: Normal inspection. Neck supple. No lymphadenopathy CVS: Normal heart rate and rhythm. Pulses normal. Respiratory: No respiratory distress. Breath sounds normal. Skin: Skin warm and dry. Normal skin color. Normal skin turgor. No rashes. Extremities: No lower extremity edema. Neuro: Oriented X 3. Grossly normal, not Course Course Course Narrative: 61-year-old female presenting with sore throat for the last 3 days. She otherwise has no symptoms. Her vital signs are normal in her exam is benign. Her rapid COVID test today was positive. Patient was counseled on diagnosis and management. Stable for discharge home with supportive care. Medical Decision Making Lab Data Labs: Lab Results 11/16/21 11/16/21 Range/Units 08:17 08:17 COVID-19 ([facility]OVITA) Positive A (Negative) COVID-19 Clin Com See Note S. pyogenes GrpA NORM Negative (Negative) Critical Care Time Critical Care Time Critical Care Time: No Discharge Plan Discharge Clinical Impression: COVID-19 Patient Disposition: Home, Self-Care Instructions: Covid-19 Viral Syndrome and Novel Coronavirus (ED) Hey/Ath Additional Instructions: You were found to be COVID-19 POSITIVE today. Your exam and oxygen levels were normal. Rest. Drink plenty of fluids. Do not go out in public for the next 7 days. Use over the counter Chloraseptic spray and Cepacol lozenges as needed for sore throat. Take over the counter cold/flu medications as needed for your symptoms. Take Tylenol and/or Motrin as needed for fevers and body aches. Follow up with your doctor this week. If you shortness of breath worsens , if you develop difficulty breathing or any other concerning symptom come back to the ER for further evaluation. Prescriptions: No Action levothyroxine 100 mcg capsule 100 mcg PO DAILY 90 Days Qty: 90 RF: 0 hydrochlorothiazide 25 mg tablet 25 mg PO DAILY 90 Days Qty: 90 RF: 1 clotrimazole 1 % cream 1 appl topical BID 14 Days Qty: 15 RF: 0 calcitriol 0.25 mcg capsule 0.25 mcg PO TID 90 Days Qty: 270 RF: 3 Senna Plus 8.6-50 mg capsule 1 tab-cap PO BEDTIME 60 Days Qty: 60 RF: 2 buspirone 5 mg tablet 5 mg PO BID RF: 0 levothyroxine 100 mcg tablet 100 mcg PO DAILY RF: 0 sennosides-docusate sodium [Senna Plus] 8.6-50 mg tablet 1 tab PO DAILY RF: 0 citalopram 20 mg tablet 20 mg PO DAILY RF: 0 Referrals: Brianna Navarrete MD [Primary Care Provider] - 1 week (f/u covid+) Interventions: ED Discharge Assessment Last Done: 11/16/21 09:23 Discharge Date/Time: 11/16/21 09:23 Print Language: Sudanese
== END 2021-11-16 09:23 | disposition home or self-care (01) ==
PROVIDERS: Emergency Provider Emergency Medicine; PCP Internal Medicine
DX: U07.1 COVID-19 (principal); J02.9 Acute pharyngitis, unspecified; I10 Essential (primary) hypertension; Z85.850 Personal history of malignant neoplasm of thyroid
CPT/HCPCS: 87635; 87651; 99283

== ENCOUNTER 2022-02-01 09:06 | Outpatient (REF) | payer OTHER, SELFPAY ==
[2022-02-01 10:16] LABS: Alanine Aminotransferase 16 U/L (0-31); Albumin Level 4.5 g/dL (3.5-5.0); Alkaline Phosphatase 68 U/L (39-117); Anion Gap 11 (12-20); Aspartate Amino Transferase 15 U/L (5-31); Bilirubin Total 0.7 mg/dL (0.0-1.0); Blood Urea Nitrogen 22 mg/dL (9-16); Calcium 9.1 mg/dL (8.4-10.2); Carbon Dioxide 32 mmol/L (22-29); Chloride 103 mmol/L (96-108); Cholesterol 208 mg/dL; Estimated Glomerular Filt Rate > 60; Glucose Fasting 98 mg/dL (60-99); HDL Cholesterol 55 mg/dL; LDL Cholesterol Calculated 121 mg/dl; Potassium 3.9 mmol/L (3.3-5.1); Sodium 142 mmol/L (135-145); Total Protein 7.6 g/dL (6.5-8.0); Triglycerides 164 mg/dL
[2022-02-01 10:41] LABS: Thyroid Stimulating Hormone 0.45 uIU/mL (0.32-4.0)
[2022-02-05 13:06] LABS: Vitamin D 25-OH, D2 <4 ng/mL; Vitamin D 25-OH, D3 30 ng/mL; Vitamin D 25-OH, Total 30 ng/mL (30-100)
== END 2022-02-01 09:07 | disposition home or self-care (01) ==
LOC: HO.LAB 09:06
PROVIDERS: PCP Internal Medicine; Visit Provider Internal Medicine
DX: I10 Essential (primary) hypertension (principal); E03.9 Hypothyroidism, unspecified; E78.5 Hyperlipidemia, unspecified; E55.9 Vitamin D deficiency, unspecified
CPT/HCPCS: 36415; 80053; 80061; 82306; 84443

== ENCOUNTER → 2022-03-16 06:33 | Outpatient (REF) | payer OTHER, SELFPAY ==
--- NOTE | 2022-03-16 06:37 | ECG_ITS ---
Test Reason : palpitations Blood Pressure : / mmHG Vent. Rate : 072 BPM Atrial Rate : 072 BPM P-R Int : 168 ms QRS Dur : 094 ms QT Int : 416 ms P-R-T Axes : 076 -02 027 degrees QTc Int : 455 ms Sinus rhythm with occasional Premature ventricular complexes Possible Left atrial enlargement Borderline ECG When compared with ECG of 03-JAN-2020 05:25, Premature ventricular complexes are now Present Referred By: Ismael Cash Electronically Signed By:DAYAMI DRUMMOND MD
[2022-03-16 08:15] LABS: Anion Gap 12 (12-20); Blood Urea Nitrogen 26 mg/dL (9-16); Calcium 9.3 mg/dL (8.4-10.2); Carbon Dioxide 31 mmol/L (22-29); Chloride 101 mmol/L (96-108); Estimated Glomerular Filt Rate > 60; Glucose Random 98 mg/dL (60-115); Potassium 3.8 mmol/L (3.3-5.1); Sodium 140 mmol/L (135-145)
== END ==
LOC: HO.CARD 06:33
PROVIDERS: PCP Internal Medicine; Visit Provider Nurse Practitioner Family
DX: R00.2 Palpitations (principal)
CPT/HCPCS: 36415; 80048; 84443; 93005

== ENCOUNTER → 2022-04-29 10:28 | Outpatient (BNVA) | payer OTHER, SELFPAY | PROVIDERS: PCP Internal Medicine; Referring Provider Internal Medicine; Visit Provider Internal Medicine Gastroenterology | DX: K21.9 Gastro-esophageal reflux disease without esophagitis (principal); K59.09 Other constipation | CPT/HCPCS: 99212 ==

== ENCOUNTER 2022-09-17 06:02 | Outpatient (REF) | payer OTHER, SELFPAY ==
[2022-09-17 07:54] LABS: Alanine Aminotransferase 13 U/L (0-31); Albumin Level 4.3 g/dL (3.5-5.0); Alkaline Phosphatase 60 U/L (39-117); Anion Gap 14 (12-20); Aspartate Amino Transferase 17 U/L (5-31); Bilirubin Total 0.9 mg/dL (0.0-1.0); Blood Urea Nitrogen 25 mg/dL (9-16); Calcium 8.6 mg/dL (8.4-10.2); Carbon Dioxide 32 mmol/L (22-29); Chloride 100 mmol/L (96-108); Estimated Glomerular Filt Rate 56; Glucose Fasting 87 mg/dL (60-99); Potassium 3.6 mmol/L (3.3-5.1); Sodium 142 mmol/L (135-145); Total Protein 7.1 g/dL (6.5-8.0)
== END 2022-09-17 06:03 | disposition home or self-care (01) ==
LOC: HO.LAB 06:02
PROVIDERS: PCP Internal Medicine; Visit Provider Internal Medicine
DX: G44.229 Chronic tension-type headache, not intractable (principal)
CPT/HCPCS: 36415; 80053

== ENCOUNTER 2022-10-11 19:08 | Emergency (ER) | payer OTHER, SELFPAY ==
--- NOTE | ~2022-10-11 | CT_ITS ---
EXAMINATION: CT ANGIOGRAM OF THE CHEST WITH AND WITHOUT CONTRAST (CT PULMONARY ANGIOGRAM FOR PE) CLINICAL INFORMATION: Reason for Exam hx cancer, pleuritic cp COMPARISON: None TECHNIQUE: Prior to contrast administration, noncontrast localization images were obtained. Subsequently, multidetector volumetric imaging was performed from the thoracic inlet to below the diaphragms following the administration of 65 mL Omnipaque 350 intravenous contrast. No contrast reaction reported Sagittal, coronal, and MIP oblique sagittal reformatted images were obtained on the CT workstation, uploaded to PACS, and reviewed. This CT examination was performed using dose optimization techniques as appropriate, variously including the following: *Automated exposure control *Adjustment of mA and/or kV according to patient size (this includes techniques or standardized protocols for targeted exams where dose is matched to indication/reason for exam; i.e. extremities or head) *Use of iterative reconstruction technique Total exam dose-length product 196 mGy-cm FINDINGS: QUALITY OF STUDY/CONTRAST BOLUS: Satisfactory. PULMONARY ARTERIES: No central or segmental pulmonary emboli. THORACIC AORTA: No aneurysm or dissection. LUNG: No focal consolidation, nodules or masses. PLEURA: No pleural effusion or pneumothorax. MEDIASTINUM: Normal heart size. No pericardial effusion. No hilar or mediastinal lymphadenopathy. No evidence of septal bowing or right heart strain. CHEST WALL/AXILLA: No axillary or internal mammary lymphadenopathy. Postsurgical changes of the left breast. OSSEOUS STRUCTURES: No acute or suspicious osseous abnormality. UPPER ABDOMEN: Unremarkable. No reflux of contrast into the hepatic veins to suggest elevated right heart pressures. CT/CT angio chest PE protocol IMPRESSION: No pulmonary embolism. No acute pulmonary parenchymal abnormalities. VTE: negative
--- NOTE | ~2022-10-11 | XR_ITS ---
EXAMINATION: XR CHEST CLINICAL INFORMATION: Chest pain COMPARISON: Chest x-ray 07/17/2018 TECHNIQUE: 2 views of the chest were obtained. FINDINGS: No significant abnormality is noted involving the heart, lungs, mediastinum, bony thorax or soft tissues. XR/XR chest 2V IMPRESSION: Unremarkable examination.
--- NOTE | 2022-10-11 19:14 | ECG_ITS ---
Test Reason : CHEST PAIN Blood Pressure : / mmHG Vent. Rate : 080 BPM Atrial Rate : 080 BPM P-R Int : 162 ms QRS Dur : 102 ms QT Int : 420 ms P-R-T Axes : 070 -12 044 degrees QTc Int : 484 ms Normal sinus rhythm Minimal voltage criteria for LVH, may be normal variant ( [place] product ) Borderline ECG When compared with ECG of 16-MAR-2022 06:37, Premature ventricular complexes are no longer Present Referred By: Phuong Perez Electronically Signed By:DAYAMI DRUMMOND MD
[2022-10-11 19:15] VITALS: BP 155/87; PULSE 96; RESP 18; TEMP 36.6; O2SAT 97; BMI 25.4
--- NOTE | 2022-10-11 19:15 | ED_ITS ---
HPI - General Adult General Chief complaint: Chest Pain <Phuong Perez MD - Last Filed: 10/11/22 19:20> Stated complaint: chest pain <Phuong Perez MD - Last Filed: 10/11/22 19:20> Time Seen by Provider: 10/11/22 20:27 <Phuong Perez MD - Last Filed: 10/11/22 19:20> Source: patient <TAMARA Soto - Last Filed: 10/11/22 23:06> Mode of arrival: ambulatory <TAMARA Soto - Last Filed: 10/11/22 23:06> Limitations: no limitations <TAMARA Soto - Last Filed: 10/11/22 23:06> History of Present Illness HPI narrative: Carrington is a 62-year-old female patient with a past medical history of breast cancer and thyroid cancer who presents the emergency department today with a chief complaint of new onset chest pain that started yesterday with she was lying down. Patient reports that when she was lying down she sharp pain, substernal, nonradiating and she rated as a 9/10. She indicates that it lasted for few minutes and did not radiate anywhere. She does not have the pain today and says it comes and goes. This is never happened before. She denies fevers, chills, shortness of breath, nausea, vomiting, diarrhea, and urinary changes. She endorses constipation and back pain but clarifies that these are both chronic issues and are not new. She did not come in last night because she was nervous about what the pain could be caused by, but would like to figure it out today. <TAMARA Soto - Last Filed: 10/11/22 23:06> Related Data Home medications: Home Medications Medication Instructions Recorded Confirmed buspirone 5 mg tablet 5 mg PO BID 11/04/21 09/27/22 citalopram 20 mg tablet 20 mg PO DAILY 11/04/21 09/27/22 levothyroxine 100 mcg tablet 100 mcg PO DAILY 11/04/21 09/27/22 ibuprofen 600 mg tablet 600 mg PO Q6H PRN 03/15/22 09/27/22 Previous Rx's Medication Instructions Recorded bisacodyl 5 mg tablet,delayed 10 mg PO ONCE colon prep 3 days #6 04/29/22 release (Dulcolax (bisacodyl)) tabs polyethylene glycol 3350 17 17 g PO DAILY colon prep 1 day 04/29/22 gram/dose oral powder (Miralax) #238 grams sennosides 8.6 mg-docusate sodium 1 tab-cap PO BEDTIME 2 months #60 04/29/22 50 mg capsule (Senna Plus) caps calcitriol 0.25 mcg capsule 0.25 mcg PO TID 90 days #270 caps 05/04/22 hydrochlorothiazide 25 mg tablet 25 mg PO DAILY 90 days #90 tabs 10/08/22 cyclobenzaprine 10 mg tablet 10 mg PO BEDTIME PRN muscle spasm 10/11/22 #7 tabs <Phuong Perez MD - Last Filed: 10/11/22 19:20> Allergies/adverse reactions: Allergies Allergy/AdvReac Type Severity Reaction Status Date / Time acetaminophen [From Percocet] AdvReac Intermediate Vomiting Verified 10/11/22 19:20 oxycodone [From Percocet] AdvReac Intermediate Vomiting Verified 10/11/22 19:20 prednisone AdvReac Intermediate weakness, Verified 10/11/22 19:20 facial flushing <Phuong Perez MD - Last Filed: 10/11/22 19:20> Review of Systems Review of Systems: Constitutional : No Weight loss, No Fever, No Chills, No Fatigue, No Malaise ENT/Mouth : No sore throat, No Rhinorrhea Eyes: No Eye Pain, No Swelling, No Redness Cardiovascular : + Chest Pain, No SOB, No Dyspnea on Exertion, No Orthopnea, No Edema, No Palpitations Respiratory : No Cough, No Sputum, No Wheezing Gastrointestinal : No Nausea, No Vomiting, No Diarrhea, No Constipation, No abdominal Pain, No Hematochezia, No Melena Genitourinary : No Dysuria, No Urinary Frequency, No Hematuria, Musculoskeletal : No joint pain, No Myalgias, No Joint Swelling Skin : No Skin Lesions, No rash Neuro : No Weakness, No Numbness, No Dizziness, No Headache Psych : No Anxiety/Panic, No Depression All other systems reviewed and are negative <TAMARA Soto - Last Filed: 10/11/22 23:06> Yes all other systems are reviewed and are negative <TAMARA Soto - Last Filed: 10/11/22 23:06> [facility] Past Medical History Attestation statement: The following information was validated with the patient. <TAMARA Soto - Last Filed: 10/11/22 23:06> Source: old records reviewed and nursing notes reviewed <TAMARA Soto - Last Filed: 10/11/22 23:06> Medical History: Medical History Breast nodule Depression Essential hypertension Headache History of COVID-19 HTN (hypertension) Hypocalcemia Hypothyroid Hypovitaminosis D Invasive ductal carcinoma of breast Postoperative hypothyroidism Sinus pain Thyroid cancer <Phuong Perez MD - Last Filed: 10/11/22 19:20> Surgical History: Surgical History History of breast biopsy History of section History of colonoscopy History of thyroidectomy Hx of endoscopy S/P lumpectomy, left breast <Phuong Perez MD - Last Filed: 10/11/22 19:20> Family History Family History: Family History Father Diabetes Stroke Prostate cancer Mother No problems noted. Maternal Grandmother Medical history unknown Family/Other Breast cancer <Phuong Perez MD - Last Filed: 10/11/22 19:20> Social History Social History: Social History Housing: Apartment Are you a primary career development specialist to a significant other at home: No Do you presently have visiting nurse or other home services: No Alcohol intake: current Alcohol intake frequency: does not drink Alcohol type: wine Patient Tobacco Use Status: Never used Tobacco e-Cigarette/Vaping Use: Never Used Second Hand Smoke Exposure: No Advance Directives: No Advance Directives Information Provided: No service: No Current occupational status: unemployed Current occupational exposures/hazards: No Cognitive needs: No Hearing needs: No Vision needs: No <Phuong Perez MD - Last Filed: 10/11/22 19:20> Physical Exam ED Vital Signs: Vital Signs - 24 hr 10/11/22 19:15 10/11/22 20:23 Temperature 97.8 F 98.1 F Pulse Rate 96 84 Respiratory Rate 18 11 L Blood Pressure 155/87 H 164/89 H Pulse Oximetry 97 98 Oxygen Delivery Method Room Air BMI result Body Mass Index 25.4 <Phuong Perez MD - Last Filed: 10/11/22 19:20> Vital Signs - 24 hr 10/11/22 19:15 10/11/22 20:23 Temperature 97.8 F 98.1 F Pulse Rate 96 84 Respiratory Rate 18 11 L Blood Pressure 155/87 H 164/89 H Pulse Oximetry 97 98 Oxygen Delivery Method Room Air BMI result Body Mass Index 25.4 vss <TAMARA Soto - Last Filed: 10/11/22 23:06> Appearance: Alert.? Oriented X3.? No acute distress.? Appears anxious. Nontoxic appearing. Head: Normocephalic, atraumatic, no step-offs or deformities Eyes: Pupils equal, round and reactive to light.? ENT: Pharynx normal.? Neck: Normal inspection.? Neck supple.? CVS: Normal heart rate and rhythm.? Pulses normal.?+ discomfort with palpation of anterior chest wall Respiratory: No respiratory distress.? Breath sounds normal.? Abdomen: Soft and nontender.? Skin: Skin warm and dry.? Normal skin color.? Normal skin turgor.? Extremities: No lower extremity edema.? No calf ttp, negative Jaime bilaterally. 5/5 strength to bilateral upper and lower extremities Back: No midline tenderness, no C-spine tenderness, full range of motion, no CVA tenderness bilaterally Neuro: Oriented X 3.? No motor deficit.? No sensory deficit. CN 2-12 intact <TAMARA Soto - Last Filed: 10/11/22 23:06> Course Course Course Narrative: 62F p/w LEFt chest pain and known LEFT breast ca treated in February with radiation and pulsing/intermittent chest pain since yesterday without worsening/improvement without fevers, chills, cough. Denies N/V. VS Reviewed GEN: mild discomfort HEENT: wnl PULM: CTAB CVS: RRR, no murmurs - Labs,CXR <Phuong Perez MD - Last Filed: 10/11/22 19:20> Reevaluation(s) Reevaluation #1: Patient's CBC within normal limits. Chemistry with no acute findings, patient carbon dioxide is noted to be chronically elevated, patient's BUN also chronically elevated, no acute findings. Troponin negative, EKG nonischemic unlikely ACS. Beta HCG negative. D-dimer negative. However since patient had history of cancer obtain CTA to rule out PE. UA without infection. Patient negative for flu/COVID/RSV. Chest x-ray with no acute findings. CTA pending. Patient reports she is feeling much better than she was initially. No longer appears anxious. Initially did she did tell me she had a allergic reaction to contrast dye, she tells me she gets nauseous when she has it, I ordered Benadryl and Zofran after the scan however patient refusing medications. <TAMARA Soto - Last Filed: 10/11/22 23:06> Time: 22:41 <TAMARA Soto - Last Filed: 10/11/22 23:06> Reevaluation #2: CTA with no signs of PE. Troponin negative, EKG nonischemic unlikely ACS. At this time patient will be discharged home with cardiology follow-up I suspect this is noncardiac related chest pain possibly costochondritis will discharge home on cyclobenzaprine. Advised to return with any new or worsening <TAMARA Soto - Last Filed: 10/11/22 23:06> Time: 23:06 <TAMARA Soto - Last Filed: 10/11/22 23:06> Medications Administered Discontinued Medications Generic Name Dose Route Start Last Admin Trade Name Freq PRN Reason Stop Dose Admin Diphenhydramine HCl 25 mg 10/11/22 22:24 10/11/22 22:33 Diphenhydramine Hcl 50 Mg/Ml Vial IVPUSH 10/11/22 22:25 Not Given ONCE ONE Iohexol 100 ml 10/11/22 22:24 10/11/22 22:24 Iohexol 350 Mg/Ml 100 Ml Infus..Btl IV 10/11/22 22:25 65 ml ONCE ONE Administration Ondansetron HCl 4 mg 10/11/22 22:24 1205/22 22:33 Ondansetron Hcl 4 Mg/2 Ml Vial IVPUSH 10/11/22 22:25 Not Given ONCE ONE <Phuong Perez MD - Last Filed: 10/11/22 19:20> Medications Administered Discontinued Medications Generic Name Dose Route Start Last Admin Trade Name Tamara PRN Reason Stop Dose Admin Diphenhydramine HCl 25 mg 10/11/22 22:24 10/11/22 22:33 Diphenhydramine Hcl 50 Mg/Ml Vial IVPUSH 10/11/22 22:25 Not Given ONCE ONE Iohexol 100 ml 10/11/22 22:24 10/11/22 22:24 Iohexol 350 Mg/Ml 100 Ml Infus..Btl IV 10/11/22 22:25 65 ml ONCE ONE Administration Ondansetron HCl 4 mg 10/11/22 22:24 12 22:33 Ondansetron Hcl 4 Mg/2 Ml Vial IVPUSH 10/11/22 22:25 Not Given ONCE ONE <TAMARA Soto - Last Filed: 10/11/22 23:06> Medical Decision Making Medical Decision Making MDM Narrative: 62-year-old female history of cancer presents with sudden onset chest discomfort that is intermittent in nature since yesterday. No associated shortness of breath. No history of DVT or PE. Physical examination with pain with palpation of anterior chest wall. Regular rate and rhythm. Lungs clear. Abdomen soft nontender nondistended. Neuro nonfocal. Lower extremities without edema. Negative Jaime bilaterally. Will rule out ACS, PE although unlikely. Likely anxiety. Patient appears anxious upon exam. There is anterior chest wall pain with palpation concerns for possible costochondritis. Unlikely dissection. No signs of pneumonia. Unlikely endocrine crisis. Plan at this time is to obtain basic labs, imaging, D-dimer, troponin, EKG. <TAMARA Soto - Last Filed: 10/11/22 23:06> Critical Care Time Critical Care Time Critical Care Time: No <TAMARA Soto - Last Filed: 10/11/22 23:06> Discharge Plan Discharge Clinical Impression: Chest pain not due to acute coronary syndrome, Anxiety, Costochondritis <Phuong Perez MD - Last Filed: 10/11/22 19:20> Patient Disposition: Home, Self-Care <Phuong Perez MD - Last Filed: 10/11/22 19:20> Instructions: Chest Pain (DC), Costochondritis (ED), Anxiety (ED) <Phuong Perez MD - Last Filed: 10/11/22 19:20> Additional Instructions: Take your medications as prescribed. If you were prescribed antibiotics today, it is important that you take your medication to their entirety, do not skip any doses, do not finish them early. Follow-up with your primary care provider this week. Follow up with cardiology, you may need a Holter monitor for further evaluation. Return to the emergency department with new or worsening symptoms. Such as fevers, chills, chest pain, shortness of breath, nausea, vomiting, dizziness, headache, vision changes, lethargy In case of emergency call 911 Your laboratory studies were reassuring I had normal cardiac enzymes her EKG did not show any abnormal findings, screening test for a blood clot was negative, your imaging did not show a blood clot. Your chest x-ray looked good. Urine without infection. Flu/COVID/RSV negative For costochondritis you can take ibuprofen every 6 hours, Tylenol every 4 as needed for pain or discomfort if not otherwise contraindicated Return with new or worsening symptoms. Naches libby medicamentos seg?n lo prescrito. Si le recetaron antibi?ticos hoy, es importante que tome christianson medicamento en christianson totalidad, no se salte ninguna dosis, no los termine antes de tiempo. Seguimiento con christianson proveedor de atenci?n primaria esta semana. Coleman un seguimiento con cardiolog?a, es posible que necesite un monitor Holter para neto evaluaci?n adicional. Regrese al departamento de emergencias con s?ntomas nuevos o que empeoran. [place]on fiebre, escalofr?os, dolor de pecho, dificultad para respirar, n?useas, v?mitos, mareos, dolor de glendy, cambios en la visi?n, letargo En lisa de emergencia llama al 911 Libby estudios de laboratorio fueron tranquilizadores Yo ten?a enzimas card?acas normales Christianson electrocardiograma no mostr? jayce?n hallazgo anormal, la prueba de detecci?n de co?gulos de ruy fue negativa, libby im?genes no mostraron jayce?n co?gulo de ruy. Christianson radiograf?a de t?rax se ve?a reina. Orina sin infecci?n. Gripe/COVID/RSV negativo Para la costocondritis, puede nena ibuprofeno cada 6 horas, Tylenol cada 4 seg?n sea necesario para el dolor o la incomodidad, si no est? contraindicado. Regresa con s?ntomas nuevos o que empeoran. CT/CT angio chest PE protocol IMPRESSION: No pulmonary embolism. No acute pulmonary parenchymal abnormalities. ? VTE: negative <Phuong Perez MD - Last Filed: 10/11/22 19:20> Prescriptions: New cyclobenzaprine 10 mg tablet 10 mg PO BEDTIME PRN (Reason: muscle spasm) Qty: 7 0RF No Action calcitriol 0.25 mcg capsule 0.25 mcg PO TID 90 Days Qty: 270 3RF hydrochlorothiazide 25 mg tablet 25 mg PO DAILY 90 Days Qty: 90 1RF ibuprofen 600 mg tablet 600 mg PO Q6H PRN buspirone 5 mg tablet 5 mg PO BID levothyroxine 100 mcg tablet 100 mcg PO DAILY citalopram 20 mg tablet 20 mg PO DAILY Senna Plus 8.6-50 mg capsule 1 tab-cap PO BEDTIME 60 Days Qty: 60 2RF bisacodyl [Dulcolax (bisacodyl)] 5 mg tablet,delayed release (DR/EC) 10 mg PO ONCE 3 Days Qty: 6 0RF Rx Instructions: Take 2 tablets at 12 pm daily starting 3 days before colonoscopy appointment polyethylene glycol 3350 [Miralax] 17 gram/dose powder 17 g PO DAILY 1 Days Qty: 238 0RF Rx Instructions: Mix Miralax with 64 oz(8 cups) of Crystal light. Take 2 tablets of Dulcolax qt 12 pm. Wait to have your 1st bowel movement, then begin drinking Miralax. Drink a glass of Miralax every 10-15 minutes until you are finished. You will drink at least another 4 cups of clear liquid of your choice over the next 2 hours. Please drink as many clear liquids as possible You may have clear liquids up to four hours before your procedure <Phuong Perez MD - Last Filed: 10/11/22 19:20> Referrals: [facility] [place] Cardiovascular Services [Provider Group] - 2 days Brianna Navarrete MD [Primary Care Provider] - 2 days <Phuong Perez MD - Last Filed: 10/11/22 19:20> Stand Alone Forms: Work/School Release <Phuong Perez MD - Last Filed: 10/11/22 19:20>
[2022-10-11 20:23] VITALS: BP 164/89; PULSE 84; RESP 11; TEMP 36.7; O2SAT 98
[2022-10-11 20:29] LABS: MANUAL DIFF FLAG NO
[2022-10-11 20:38] LABS: Basophils Percent Auto 0.3 % (0-2); Eosinophils Absolute Auto 0.1 X10*3/uL (0.0-0.4); Eosinophils Percent Auto 0.9 % (0-4); Hematocrit 41.7 % (37.0-47.0); Hemoglobin 14.2 g/dl (12.0-16.0); Imm Gran Abs Auto 0.02 X10*3/uL (0.00-0.03); Imm Gran Pct Auto 0.3 % (0.0-0.4); Lymphocytes Absolute Auto 2.5 X10*3/uL (1.2-4.9); Lymphocytes Percent Auto 37.6 % (20-40); Mean Corpuscular HGB Conc 34.1 g/dl (31.0-35.0); Mean Corpuscular Hemoglobin 31.4 pg (27.0-33.0); Mean Corpuscular Volume 92.3 fL (80.0-98.0); Mean Platelet Volume 11.6 fL (9.4-12.3); Monocytes Absolute Auto 0.6 X10*3/uL (0.1-1.2); Monocytes Percent Auto 9.3 % (2-11); Neutrophils Absolute Auto 3.4 x10*3/uL (2.0-8.3); Neutrophils Percent Auto 51.6 % (45-73); Platelet Count 213 X10*3/uL (160-400); Red Blood Count 4.52 X10*6/uL (4.20-5.50); Red Cell Distribution Width 11.8 % (11.0-16.0); White Blood Count 6.6 X10*3/uL (4.8-10.8)
[2022-10-11 20:50] LABS: Prothrombin Time 11.5 SEC (10.0-13.1)
[2022-10-11 20:53] LABS: Alanine Aminotransferase 17 U/L (0-31); Albumin Level 4.6 g/dL (3.5-5.0); Alkaline Phosphatase 68 U/L (39-117); Anion Gap 13 (12-20); Aspartate Amino Transferase 18 U/L (5-31); Bilirubin Total 0.5 mg/dL (0.0-1.0); Blood Urea Nitrogen 26 mg/dL (9-16); Calcium 8.6 mg/dL (8.4-10.2); Carbon Dioxide 32 mmol/L (22-29); Chloride 103 mmol/L (96-108); Creatinine Clr Calc Pharmacy 45.1; D Dimer High Sensitivity < 150 NG/ML; Estimated Glomerular Filt Rate 50; Glucose Random 109 mg/dL (60-115); Potassium 4.3 mmol/L (3.3-5.1); Sodium 144 mmol/L (135-145); Total Protein 7.6 g/dL (6.5-8.0)
[2022-10-11 21:00] LABS: Troponin-I High Sensitivity < 3.5 ng/L (<3.5-17.0)
[2022-10-11 21:16] LABS: Influenza A PCR NEGATIVE (Negative); Influenza B PCR NEGATIVE (Negative); Resp Syncy Virus RNA Qual PCR NEGATIVE (Negative); SARS COV2 PCR INHOUSE NEGATIVE (Negative)
[2022-10-11 21:43] LABS: Appearance Urine Clear; Color Urine Yellow; Glucose Urine UA Negative (Negative); Leukocyte Esterase Urine Moderate (2+) (Negative); Nitrite Urine Negative (Negative); UMIC TRIGGER UACC YES; Urine Blood Negative (Negative); Urine Ketones Negative (Negative); Urine Protein Negative (Neg-Trace)
[2022-10-11 21:57] LABS: Bacteria Urine None Seen (None Seen); Hyaline Casts Urine 0-2 /LPF (0-2); RBC Urine 0-2 /HPF (0-2); Squamous Epithelial Cell Urine 0-2 /HPF (0-2); WBC Urine 0-5 /HPF (0-5)
[2022-10-11 22:10] LABS: HCG Quantitative < 2 mIU/mL
[2022-10-11] MEDS: iohexoL 350 MG/ML 100 ML INFUS..BTL IV (22:24)
--- NOTE | 2022-10-11 22:31 | PC.NURSE ---
pt reports feeling shaky and nauseous after iv contrast administration but denies wanting any medication. denies Benjosefinal and estephania. PA aware
== END 2022-10-11 23:12 | disposition home or self-care (01) ==
PROVIDERS: Physician Assistant; Student in an Organized Health Care Education/Training Program; Emergency Provider Emergency Medicine; PCP Internal Medicine
DX: R07.89 Other chest pain (principal); F41.1 Generalized anxiety disorder; F43.0 Acute stress reaction; M94.0 Chondrocostal junction syndrome [Tietze]; Z20.822 Contact with and (suspected) exposure to COVID-19; Z79.899 Other long term (current) drug therapy
CPT/HCPCS: 0241U; 36415; 71046; 71275; 80053; 81001; 84484; 84702; 85025; 85379; 85610; 93005; 99284; Q9967

== ENCOUNTER 2023-02-21 08:08 | Outpatient (REF) | payer OTHER, SELFPAY ==
--- NOTE | ~2023-02-21 | XR_ITS ---
EXAMINATION: XR SHOULDER, LEFT CLINICAL INFORMATION: Other specified disorders of bone COMPARISON: None available. TECHNIQUE: 3 views of the left shoulder. FINDINGS: Bone alignment is normal. No fracture or dislocation. Normal glenohumeral joint. Arthritis at the acromioclavicular joint. Surgical clips in the left axilla. XR/XR shoulder LT min 2V IMPRESSION: Arthritis at the acromioclavicular joint.
--- NOTE | ~2023-02-21 | XR_ITS ---
EXAMINATION: XR SCAPULA, LEFT CLINICAL INFORMATION: Pain COMPARISON: None available. TECHNIQUE: AP and scapular Y views of the left scapula. FINDINGS: The bones are normal. No scapular fracture or bone lesion. Arthritis at the acromioclavicular joint. Surgical clips in the left axilla. XR/XR scapula LT IMPRESSION: Normal left scapula.
--- NOTE | ~2023-02-21 | XR_ITS ---
EXAMINATION: Cervical and thoracic spine x-rays CLINICAL INFORMATION: Neck and back pain COMPARISON: None. TECHNIQUE: 3 views of the cervical spine and 2 views of the thoracic spine FINDINGS: Cervical spine: Bone alignment is normal. No fracture or dislocation. Mild degenerative spondylosis at C5-C6 and C6-C7. Disc spaces are normal. Prevertebral soft tissues are normal. Thoracic spine: There is mild curvature of the lower thoracic spine to the right. Bone alignment is otherwise normal. There is mild multilevel degenerative disc disease and spondylosis of the mid and thoracic spine. Paraspinal soft tissues are normal. XR/XR thoracic spine 2V IMPRESSION: Cervical spine: Mild degenerative spondylosis at C5-C6 and C6-C7. Thoracic spine: Mild scoliosis and degenerative changes of the midthoracic spine.
--- NOTE | ~2023-02-21 | XR_ITS ---
EXAMINATION: Cervical and thoracic spine x-rays CLINICAL INFORMATION: Neck and back pain COMPARISON: None. TECHNIQUE: 3 views of the cervical spine and 2 views of the thoracic spine FINDINGS: Cervical spine: Bone alignment is normal. No fracture or dislocation. Mild degenerative spondylosis at C5-C6 and C6-C7. Disc spaces are normal. Prevertebral soft tissues are normal. Thoracic spine: There is mild curvature of the lower thoracic spine to the right. Bone alignment is otherwise normal. There is mild multilevel degenerative disc disease and spondylosis of the mid and thoracic spine. Paraspinal soft tissues are normal. XR/XR cervical spine 2V IMPRESSION: Cervical spine: Mild degenerative spondylosis at C5-C6 and C6-C7. Thoracic spine: Mild scoliosis and degenerative changes of the midthoracic spine.
[2023-02-21 09:33] LABS: Alanine Aminotransferase 18 U/L (0-31); Albumin Level 4.5 g/dL (3.5-5.0); Alkaline Phosphatase 62 U/L (39-117); Anion Gap 14 (12-20); Aspartate Amino Transferase 22 U/L (5-31); Bilirubin Total 1.1 mg/dL (0.0-1.0); Blood Urea Nitrogen 27 mg/dL (9-16); Calcium 9.4 mg/dL (8.4-10.2); Carbon Dioxide 29 mmol/L (22-29); Chloride 103 mmol/L (96-108); Cholesterol 223 mg/dL; Estimated Glomerular Filt Rate 54; Glucose Fasting 93 mg/dL (60-99); HDL Cholesterol 67 mg/dL; LDL Cholesterol Calculated 138 mg/dl; Potassium 4.1 mmol/L (3.3-5.1); Sodium 142 mmol/L (135-145); Total Protein 7.3 g/dL (6.5-8.0); Triglycerides 93 mg/dL
[2023-02-21 09:51] LABS: Thyroid Stimulating Hormone 0.56 uIU/mL (0.32-4.0); Vitamin D 25-OH Total 45.3 ng/mL (>30)
== END 2023-02-21 08:09 | disposition home or self-care (01) ==
LOC: HO.LAB 08:08
PROVIDERS: PCP Internal Medicine; Visit Provider Internal Medicine
DX: M89.8X1 Other specified disorders of bone, shoulder (principal); M54.6 Pain in thoracic spine; M54.2 Cervicalgia; K21.9 Gastro-esophageal reflux disease without esophagitis; E03.9 Hypothyroidism, unspecified; E55.9 Vitamin D deficiency, unspecified; E78.5 Hyperlipidemia, unspecified
CPT/HCPCS: 36415; 72040; 72070; 73010; 73030; 80053; 80061; 82306; 84443

== ENCOUNTER 2023-09-02 08:07 | Emergency (ER) | payer OTHER, SELFPAY ==
--- NOTE | ~2023-09-02 | CT_ITS ---
EXAMINATION: CT ABDOMEN AND PELVIS WITH CONTRAST CLINICAL INFORMATION: Abdominal pain, left upper quadrant lump COMPARISON: None available. TECHNIQUE: Multidetector volumetric images were obtained from the superior aspect of the liver through the pubic symphysis following administration 85 mL of Omnipaque 350 intravenous contrast. Sagittal and coronal reformatted images were obtained on the technologist's workstation. Oral contrast: No This CT examination was performed using dose optimization techniques as appropriate, variously including the following: *Automated exposure control *Adjustment of mA and/or kV according to patient size (this includes techniques or standardized protocols for targeted exams where dose is matched to indication/reason for exam; i.e. extremities or head) *Use of iterative reconstruction technique DLP: 393 mGy-cm FINDINGS: KITCHEN MECHANIC: Nonobstructive bowel pattern. Phleboliths. Minor dextroscoliosis. LUNG BASES: Atelectasis, left lower lobe scarring and bronchiectasis. LIVER, GALLBLADDER, AND BILIARY TREE: The liver is normal in size, shape, and attenuation. No focal hepatic lesion or biliary ductal dilatation is present. The gallbladder is unremarkable with no evidence of radiopaque gallstones, gallbladder wall thickening, or obvious pericholecystic inflammatory changes. PANCREAS: Unremarkable. SPLEEN: Unremarkable. ADRENAL GLANDS: Unremarkable. KIDNEYS AND URETERS: The kidneys are normal in size, shape, and attenuation. No hydronephrosis, hydroureter, or calculi seen. No perinephric stranding. BLADDER: Unremarkable. GASTROINTESTINAL TRACT: Small hiatal hernia. Stomach is under distended but unremarkable. Nonobstructive bowel pattern. Appendix not seen with certainty. Moderate fecal retention. ABDOMINAL WALL: No significant hernia is appreciated. LYMPH NODES: Normal. VASCULAR: Atherosclerotic calcifications nonaneurysmal aorta. Unremarkable inferior vena cava and iliac veins. Patent portal system. PELVIC VISCERA: Enlarged lobulated uterus with multiple hyperattenuating masses. No free fluid. Phleboliths. OSSEOUS STRUCTURES: L5-S1 disc space narrowing. 6 mm benign-appearing left sacral and right L2 sclerotic foci. 1 cm lucency right L1 vertebral body. CT/CT abdomen pelvis w IV con IMPRESSION: Likely enlarged fibroid uterus. Pelvic ultrasound recommended. Moderate fecal retention. Hiatal hernia. Left lower lobe scarring/bronchiectasis. L1 vertebral body lucency. Given history of invasive ductal carcinoma, lytic lesion not excluded. Consider bone scan or MRI. Fleischner guidelines were followed.
--- NOTE | ~2023-09-02 | US_ITS ---
EXAMINATION: US PELVIS COMPLETE TRANSVAGINAL PELVIC ULTRASOUND: CLINICAL INFORMATION: Lower abdominal pain, enlarged uterus COMPARISON: Same-day CT TECHNIQUE: Transabdominal imaging initially performed. For more definitive evaluation of the endometrium and ovaries, transvaginal technique was employed. FINDINGS: Uterus is anteverted measuring 9.1 x 5.5 x 7.8cm. Uterine volume is 204.2 mL. Multiple fibroids are identified measuring 3.6 x 3.5 x 4.0 cm, 4.5 x 4.1 x 4.8 cm, 2.9 x 2.2 x 2.8 cm and 4.9 x 4.0 x 5.9 cm. Endometrium measures 0.3 cm. Right ovary measures 2.0 x 1.1 x 1.7 cm for a volume of 2.0 mL. The left ovary measures 2.1 x 1.6 x 1.7 cm for a volume of 2.9 mL. There is no pelvic free fluid. US/US pelvic ovarian doppler IMPRESSION: Fibroid uterus
--- NOTE | ~2023-09-02 | US_ITS ---
EXAMINATION: US PELVIS COMPLETE TRANSVAGINAL PELVIC ULTRASOUND: CLINICAL INFORMATION: Lower abdominal pain, enlarged uterus COMPARISON: Same-day CT TECHNIQUE: Transabdominal imaging initially performed. For more definitive evaluation of the endometrium and ovaries, transvaginal technique was employed. FINDINGS: Uterus is anteverted measuring 9.1 x 5.5 x 7.8cm. Uterine volume is 204.2 mL. Multiple fibroids are identified measuring 3.6 x 3.5 x 4.0 cm, 4.5 x 4.1 x 4.8 cm, 2.9 x 2.2 x 2.8 cm and 4.9 x 4.0 x 5.9 cm. Endometrium measures 0.3 cm. Right ovary measures 2.0 x 1.1 x 1.7 cm for a volume of 2.0 mL. The left ovary measures 2.1 x 1.6 x 1.7 cm for a volume of 2.9 mL. There is no pelvic free fluid. US/US pelvic and transvaginal IMPRESSION: Fibroid uterus
[2023-09-02 08:10] VITALS: BP 145/89; PULSE 79; RESP 16; TEMP 36.4; O2SAT 97; BMI 24.1
--- NOTE | 2023-09-02 08:24 | PC.NURSE ---
Patient reports abdominal pain that started about 1 week ago. Points at left side of abdomen and states she feels something. Upon palpation area firm and tender. Patient states was lifting water x 1 week ago and the pain started after that. Denies chest pain, sob, nausea or vomiting. Denies pain with urination.
[2023-09-02 08:52] VITALS: BP 155/86; PULSE 68; RESP 14; TEMP 36.4; O2SAT 97
--- NOTE | 2023-09-02 08:57 | ED.ABDPAIN ---
HPI - Abdominal Pain General Chief Complaint: Abdominal Pain Stated Complaint: Abdominal pain Time Seen by Provider: 09/02/23 08:14 History of Present Illness HPI narrative: Patient is a 63-year-old female presents today with having abdominal pain. The abdominal pain is over the left side. It is dull it has been ongoing for over week. No fever no chills. No change in bowel movement. No diaphoresis. Patient is from home. No history of colonoscopy/endoscopy. No chest pain or shortness of breath. Positive history of having C-sections in the past. No history of gallbladder surgery. Patient from home. History of GERD. No change in diet. Related Data Home Medications Medication Instructions Recorded Confirmed buspirone 5 mg tablet 5 mg PO BID 11/04/21 02/21/23 citalopram 20 mg tablet 20 mg PO DAILY 11/04/21 02/21/23 levothyroxine 100 mcg tablet 100 mcg PO DAILY 11/04/21 02/21/23 ibuprofen 600 mg tablet 600 mg PO Q6H PRN Pain 03/15/22 02/21/23 letrozole 2.5 mg tablet 1 tab PO DAILY 01/17/23 02/21/23 Previous Rx's Medication Instructions Recorded bisacodyl 5 mg tablet,delayed 10 mg (2 x 5 mg) PO ONCE colon 04/29/22 release (Dulcolax (bisacodyl)) prep 3 days #6 tabs polyethylene glycol 3350 17 17 g PO DAILY colon prep 1 day 04/29/22 gram/dose oral powder (Miralax) #238 grams sennosides 8.6 mg-docusate sodium 1 tab-cap PO BEDTIME 2 months #60 04/29/22 50 mg capsule (Senna Plus) caps cyclobenzaprine 10 mg tablet 10 mg PO BEDTIME PRN muscle spasm 10/11/22 #7 tabs calcitriol 0.25 mcg capsule 0.25 mcg PO TID 90 days #270 caps 11/23/22 hydrochlorothiazide 25 mg tablet 25 mg PO DAILY 90 days #90 tabs 03/29/23 Allergies Allergy/AdvReac Type Severity Reaction Status Date / Time oxycodone [From Percocet] AdvReac Intermediate Vomiting Verified 02/21/23 07:49 prednisone AdvReac Intermediate weakness, Verified 02/21/23 07:49 facial flushing Review of Systems Review of Systems Positive abdominal pain Yes all other systems are reviewed and are negative PMFSH Past Medical History Medical History Postoperative hypothyroidism History of COVID-19 HTN (hypertension) Depression Hypothyroid Invasive ductal carcinoma of breast Breast nodule Headache Sinus pain Thyroid cancer Essential hypertension Hypocalcemia Hypovitaminosis D Surgical History S/P lumpectomy, left breast Hx of endoscopy History of colonoscopy History of breast biopsy History of section History of thyroidectomy Family History Family History Father Diabetes Stroke Prostate cancer Mother Diabetes Maternal Grandmother Medical history unknown Family/Other Breast cancer Social History Social History Housing: Apartment Are you a primary healthcare network pricing consultant to a significant other at home: No Do you presently have visiting nurse or other home services: No Alcohol intake: former Patient Tobacco Use Status: Never used Tobacco Smoked in Last 30 Days: No e-Cigarette/Vaping Use: Never Used Second Hand Smoke Exposure: No Use of substances other than those prescribed or required for medical reasons: No Advance Directives: No service: No Current occupational status: unemployed Current occupational exposures/hazards: No Cognitive needs: No Hearing needs: No Vision needs: No Physical Exam ED Vital Signs: Vital Signs - 24 hr 09/02/23 08:10 09/02/23 08:52 Temperature 97.6 F 97.6 F Pulse Rate 79 68 Respiratory Rate 16 14 Blood Pressure 145/89 H 155/86 H Pulse Oximetry 97 97 Oxygen Delivery Method Room Air Room Air BMI result Body Mass Index 24.1 Appearance: Alert. Oriented X3. No acute distress. Eyes: Pupils equal, round and reactive to light. ENT: Pharynx normal. Neck: Normal inspection. Neck supple. No lymph nodes noted. No crepitus CVS: Normal heart rate and rhythm. Pulses normal. Normal S1 and S2 Respiratory: No respiratory distress. Breath sounds normal. No Wheezing. No rales Abdomen: Soft and nontender. No rigidity. No distention. good BS x4 Skin: Skin warm and dry. Normal skin color. Normal skin turgor. Extremities: No lower extremity edema. Neurovascular intact to all extremities. No Lacerations. No Rash Neuro: Oriented X 3. No motor deficit. No sensory deficit. Moving all extermities. No slurred speech Medical Decision Making Medical Decision Making MDM Narrative: CT scan of the abdomen pelvis showed no evidence of obstruction abscess perforation no evidence for diverticulitis no evidence for kidney stones. It did showed a fibroid uterus. An ultrasound was done. There was no evidence for torsion. The fibroid was again noted. patient well-appearing. There is a nonspecific lesion noted in the spine will require MRI and a follow-up basis is patient had a history of breast cancer. Currently she is in stable condition. No acute distress. Urine not infected no evidence for UTI Differential Diagnosis Cholecystitis, diverticulitis, pancreatitis, obstruction, abscess, perforation, fibroid, UTI, metastatic disease Admission/Observation Consideration of admission/observation: Escalation of care including admission/observation considered Patient looks well no need to be admitted Consult Healthcare Provider Management of the patient was discussed with: Primary Care Provider Lab Data [facility] Lab Attestation statement: I reviewed the patient's lab results. 09/02/23 09:23 09/02/23 09:23 Labs: Lab Results 09/02/23 09/02/23 Range/Units 09:23 09:43 WBC 5.3 (4.8-10.8) X10*3/uL RBC 4.50 (4.20-5.50) X10*6/uL Hgb 14.2 (12.0-16.0) g/dl Hct 41.9 (37.0-47.0) % MCV 93.1 (80.0-98.0) fL MCH 31.6 (27.0-33.0) pg MCHC 33.9 (31.0-35.0) g/dl RDW 12.2 (11.0-16.0) % Plt Count 187 (160-400) X10*3/uL MPV 11.6 (9.4-12.3) fL Immature Gran % (Auto) 0.4 (0.0-0.4) % Neut % (Auto) 57.8 (45-73) % Lymph % (Auto) 29.3 (20-40) % [place] % (Auto) 11.2 H (2-11) % Eos % (Auto) 0.9 (0-4) % Baso % (Auto) 0.4 (0-2) % Lymph # (Auto) 1.6 (1.2-4.9) X10*3/uL [place] # (Auto) 0.6 (0.1-1.2) X10*3/uL Eos # (Auto) 0.1 (0.0-0.4) X10*3/uL Baso # (Auto) 0.0 (0.0-0.2) X10*3/uL Abs Immat Gran (auto) 0.02 (0.00-0.03) X10*3/uL Absolute Neuts (auto) 3.1 (2.0-8.3) x10*3/uL Absolute Nucleated RBC 0.000 (0.0-0.012) X10*3/uL Nucleated RBC % (auto) 0.0 (0.0-0.2) /100WBC Sodium 142 (135-145) mmol/L Potassium 3.2 L D (3.3-5.1) mmol/L Chloride 102 (96-108) mmol/L Carbon Dioxide 30 H (22-29) mmol/L Anion Gap 13 (12-20) BUN 18 H (9-16) mg/dL Creatinine 0.89 (0.5-1.4) mg/dL Estim Creat Clear Calc 49.8 Estimated GFR > 60 Random Glucose 101 (60-115) mg/dL Calcium 8.2 L D (8.4-10.2) mg/dL Total Bilirubin 0.8 (0.0-1.0) mg/dL Direct Bilirubin 0.2 (0.0-0.5) mg/dL AST 18 (5-31) U/L ALT 14 (0-31) U/L Alkaline Phosphatase 55 (39-117) U/L Total Protein 7.4 (6.5-8.0) g/dL Albumin 4.2 (3.5-5.0) g/dL Lipase 18 (8-78) U/L Urine Color Yellow Urine Appearance Clear Urine pH 7.0 (5.0-9.0) Ur Specific [place] <= 1.005 (1.005-1.025) Urine Protein Negative (Neg-Trace) mg/dL Urine Glucose (UA) Negative (Negative) mg/dL Urine Ketones Negative (Negative) mg/dL Urine Blood Negative (Negative) Urine Nitrite Negative (Negative) Ur Leukocyte Esterase Small (1+) H (Negative) Urine RBC 0-2 (0-2) /HPF Urine WBC 0-5 (0-5) /HPF Ur Squamous Epith Cells 0-2 (0-2) /HPF Urine Bacteria None Seen (None Seen) Hyaline Casts 0-2 (0-2) /LPF Independent Interpretation I performed an independent interpretation of an: CT Scan (No obstruction no abscess no perforation) Radiology Impression Discussion of test interpretation with radiology: I have reviewed the radiologist's reading. Radiologist Impression: Both the CT scan and ultrasound External Record Review External record reviewed: Outpatient record Outpatient GI no reviewed chronic cholecystitis Medications Administered Discontinued Medications Generic Name Dose Route Start Last Admin Trade Name Freq PRN Reason Stop Dose Admin Sodium Chloride 500 mls @ 999 mls/hr 09/02/23 09:00 09/02/23 09:38 Ns IV 09/02/23 09:30 Not Given .Q31M MARIO ALBERTO Ketorolac Tromethamine 15 mg 09/02/23 08:58 09/02/23 09:38 Ketorolac Tromethamine 15 Mg/Ml Vial IVPUSH 09/02/23 08:59 Not Given ONCE ONE Discharge Plan Discharge Clinical Impression: Fibroid Patient Disposition: Home, Self-Care Additional Instructions: Nonspecific finding was noted in your spine. You must get an MRI to follow up for this. Risk of malignancy exists. Prescriptions: No Action calcitriol 0.25 mcg capsule 0.25 mcg PO TID 90 Days Qty: 270 3RF hydrochlorothiazide 25 mg tablet 25 mg PO DAILY 90 Days Qty: 90 1RF letrozole 2.5 mg tablet 1 tab PO DAILY cyclobenzaprine 10 mg tablet 10 mg PO BEDTIME PRN (Reason: muscle spasm) Qty: 7 0RF ibuprofen 600 mg tablet 600 mg PO Q6H PRN (Reason: Pain) buspirone 5 mg tablet 5 mg PO BID levothyroxine 100 mcg tablet 100 mcg PO DAILY citalopram 20 mg tablet 20 mg PO DAILY Senna Plus 8.6-50 mg capsule 1 tab-cap PO BEDTIME 60 Days Qty: 60 2RF bisacodyl [Dulcolax (bisacodyl)] 5 mg tablet,delayed release (DR/EC) 10 mg PO ONCE 3 Days Qty: 6 0RF Rx Instructions: Take 2 tablets at 12 pm daily starting 3 days before colonoscopy appointment polyethylene glycol 3350 [Miralax] 17 gram/dose powder 17 g PO DAILY 1 Days Qty: 238 0RF Rx Instructions: Mix Miralax with 64 oz(8 cups) of Crystal light. Take 2 tablets of Dulcolax qt 12 pm. Wait to have your 1st bowel movement, then begin drinking Miralax. Drink a glass of Miralax every 10-15 minutes until you are finished. You will drink at least another 4 cups of clear liquid of your choice over the next 2 hours. Please drink as many clear liquids as possible You may have clear liquids up to four hours before your procedure Referrals: Brianna Navarrete MD [Primary Care Provider] - 09/06/23
[2023-09-02 09:26] LABS: MANUAL DIFF FLAG NO
[2023-09-02 09:28] LABS: Basophils Percent Auto 0.4 % (0-2); Eosinophils Absolute Auto 0.1 X10*3/uL (0.0-0.4); Eosinophils Percent Auto 0.9 % (0-4); Hematocrit 41.9 % (37.0-47.0); Hemoglobin 14.2 g/dl (12.0-16.0); Imm Gran Abs Auto 0.02 X10*3/uL (0.00-0.03); Imm Gran Pct Auto 0.4 % (0.0-0.4); Lymphocytes Absolute Auto 1.6 X10*3/uL (1.2-4.9); Lymphocytes Percent Auto 29.3 % (20-40); Mean Corpuscular HGB Conc 33.9 g/dl (31.0-35.0); Mean Corpuscular Hemoglobin 31.6 pg (27.0-33.0); Mean Corpuscular Volume 93.1 fL (80.0-98.0); Mean Platelet Volume 11.6 fL (9.4-12.3); Monocytes Absolute Auto 0.6 X10*3/uL (0.1-1.2); Monocytes Percent Auto 11.2 % (2-11); Neutrophils Absolute Auto 3.1 x10*3/uL (2.0-8.3); Neutrophils Percent Auto 57.8 % (45-73); Platelet Count 187 X10*3/uL (160-400); Red Cell Distribution Width 12.2 % (11.0-16.0); White Blood Count 5.3 X10*3/uL (4.8-10.8)
[2023-09-02 09:42] LABS: Alanine Aminotransferase 14 U/L (0-31); Albumin Level 4.2 g/dL (3.5-5.0); Alkaline Phosphatase 55 U/L (39-117); Anion Gap 13 (12-20); Aspartate Amino Transferase 18 U/L (5-31); Bilirubin Direct 0.2 mg/dL (0.0-0.5); Bilirubin Total 0.8 mg/dL (0.0-1.0); Blood Urea Nitrogen 18 mg/dL (9-16); Calcium 8.2 mg/dL (8.4-10.2); Carbon Dioxide 30 mmol/L (22-29); Chloride 102 mmol/L (96-108); Creatinine Clr Calc Pharmacy 49.8; Estimated Glomerular Filt Rate > 60; Glucose Random 101 mg/dL (60-115); Lipase 18 U/L (8-78); Potassium 3.2 mmol/L (3.3-5.1); Sodium 142 mmol/L (135-145); Total Protein 7.4 g/dL (6.5-8.0)
--- NOTE | 2023-09-02 09:47 | PC.NURSE ---
Patient initially declining for IV to be started. Stating doesn't want an iv, pain medication, IV fluids, or contrast. MD notified and spoke with patient. Patient agreeable to labs being drawn prior to CT scan and contrast. IV placed and labs obtained
[2023-09-02 09:52] LABS: Appearance Urine Clear; Color Urine Yellow; Glucose Urine UA Negative (Negative); Leukocyte Esterase Urine Small (1+) (Negative); Nitrite Urine Negative (Negative); Specific Gravity - Urine <= 1.005 (1.005-1.025); UMIC TRIGGER UACC YES; Urine Blood Negative (Negative); Urine Ketones Negative (Negative); Urine Protein Negative (Neg-Trace)
[2023-09-02 10:03] LABS: Bacteria Urine None Seen (None Seen); Hyaline Casts Urine 0-2 /LPF (0-2); RBC Urine 0-2 /HPF (0-2); Squamous Epithelial Cell Urine 0-2 /HPF (0-2); UACC Culture Trigger YES; WBC Urine 0-5 /HPF (0-5)
--- NOTE | 2023-09-02 13:20 | PC.NURSE ---
Patient at ultrasound at this time
== END 2023-09-02 15:11 | disposition home or self-care (01) ==
PROVIDERS: Emergency Provider Emergency Medicine Emergency Medical Services; PCP Internal Medicine
DX: D25.9 Leiomyoma of uterus, unspecified (principal); R10.9 Unspecified abdominal pain; I10 Essential (primary) hypertension; Z79.899 Other long term (current) drug therapy
CPT/HCPCS: 36415; 74177; 76830; 76856; 80048; 80076; 81001; 83690; 85025; 87086; 93975; 99284

== ENCOUNTER 2023-09-08 11:27 | Outpatient (AMB) | payer OTHER, SELFPAY ==
[2023-09-08 11:50] VITALS: BP 140/82; PULSE 73; O2SAT 99; BMI 24.0
--- NOTE | 2023-09-08 11:50 | MHC.PC.OV ---
Vital Signs 09/08/23 11:50 Height 5 ft 2 in Weight 131 lb 0.4 oz BMI 24.0 BP 140/82 H Blood Pressure Location Lt brachial Position Sitting Pulse 73 Pulse Source Pulse Oximeter Pulse Oximetry (%) 99 Oxygen Delivery Method Room Air Int[place] [facility] [place] pain/ needs MRI Intake Note: Patient is here to follow-up after a [place] [facility] for [place] pain Wire Coater Required: No Allergies oxycodone [From Percocet] Adverse Reaction (Intermediate, Verified 09/08/23 11:54) Vomiting prednisone Adverse Reaction (Intermediate, Verified 09/08/23 11:54) weakness, facial flushing Tobacco use date assessed: 09/08/23 Fall risk assessment: No Falls in past year Last assessed Fall Risk: 09/08/23 HPI HPI Comments History of Present Illness Details 63-year-old female past medical history significant for hypertension, GERD, hypothyroid, depression and invasive ductal carcinoma of breast.Patient presents today for emergency room follow-up for abdominal pain across the whole stomach from epigastric region to lower mid abdomin. Patient denies nausea, vomiting, diarrhea reports constipation at times. Last bowel movement 2 day and patient reports a normal. Up ultrasound revealed uterine fibroids patient reports she does not currently follow with OBGYN a would like referral, referral entered. abdominal CT was obtained which showed L1 vertebral body lucency lytic lesion could not be excluded recommended follow-up MRI. Stat MRI with and without contrast ordered. Patient reports she currently follows with [facility], states she has an upcoming appointment with them in October. Patient does not remember provider's name. Appointment completed with [place] off hazardous materials analyst Emelyn. [facility] Medical History Postoperative hypothyroidism History of COVID-19 HTN (hypertension) Depression Hypothyroid Invasive ductal carcinoma of breast Breast nodule Headache Sinus pain Thyroid cancer Essential hypertension Hypocalcemia Hypovitaminosis D Surgical History S/P lumpectomy, left breast Hx of endoscopy History of colonoscopy History of breast biopsy History of section History of thyroidectomy Family History Father Diabetes Stroke Prostate cancer Mother Diabetes Maternal Grandmother Medical history unknown Family/Other Breast cancer Social History Housing: Apartment Are you a primary restorative care technician to a significant other at home: No Do you presently have visiting nurse or other home services: No Alcohol intake: former Patient Tobacco Use Status: Never used Tobacco e-Cigarette/Vaping Use: Never Used Second Hand Smoke Exposure: No service: No Current occupational status: unemployed Current occupational exposures/hazards: No Cognitive needs: No Hearing needs: No Vision needs: No Female Reproductive History Menstrual Age of Menarche: 7 Questionnaire Thrive Questionnaire Date Thrive assessed: 02/21/23 AUDIT C Alcohol Use Questionnaire (AUDIT-C) 1. How often do you have a drink containing alcohol?: Never Total Score: 0 CHARI-7 AMB Questionnaire CHARI-7 Date CHARI - 7 assessed: 02/21/23 Source: Developed by Drs. Quintin Ugalde, Shayla Vidales, Kristian Armenta and colleagues, with an educational linda from [employer]. Review of Systems Const Denies chills, Denies fatigue, Denies fever(s) and Denies poor appetite Eyes Denies no additional complaints ENT Reports Normal hearing present Card Denies chest pain, Denies syncope, Denies rapid heart rate and Denies dyspnea Resp Denies cough and Denies dyspnea GI Denies change in stool character, Denies constipation, Denies diarrhea, Denies nausea and Denies vomiting Denies urinary frequency, Denies dysuria and Denies urinary urgency Neuro Reports Normal hearing present, Denies confusion and Denies syncope Psych Denies confusion Endo Denies fatigue Physical exam (Primary Care) Vital Signs: Last Vital Signs Pulse 73 09/08/23 11:50 BP 140/82 H 09/08/23 11:50 Pulse Ox 99 09/08/23 11:50 Oxygen Delivery Method Room Air 09/08/23 11:50 BMI result Body Mass Index 24.0 Tobacco/Smoking Status: Tobacco use Status Tobacco use date assessed 09/08/23 09/08/23 11:55 Patient Tobacco Use Status Never used Tobacco 09/08/23 11:55 e-Cigarette/Vaping Use Never Used 09/08/23 11:55 Thrive Assessment: Date of Thrive Assessment Date Thrive assessed 02/21/23 09/08/23 11:55 Const General: No confusion Orientation/consciousness: No confusion HENMT Head: Yes normocephalic and Yes atraumatic Eyes Conjunctivae: conjunctivae normal Chest Chest palpation & inspection: normal inspection of the chest Resp Effort & Inspection: normal respiratory effort Auscultation: clear to auscultation bilaterally, no crackles, no rhonchi and no wheezes Cardio Rate: regular rate Rhythm: regular rhythm Heart sounds: S1 normal heart sound present and S2 normal heart sound present GI Inspection: Yes normal to inspection Neuro General: No confusion Cranial nerves: Yes Normal hearing present Extrem General: No edema Assessment and Plan Assessment & Plan (1) Lesion of lumbar spine: Comment: L1 vertebral body luceny, noted on CT Code(s): M89.9 - Disorder of bone, unspecified Plan: Stat MRI of lumbar spine ordered to further evaluate. (2) Invasive ductal carcinoma of breast: Code(s): C50.919 - Malignant neoplasm of unspecified site of unspecified female breast Plan: Continue to follow with Oncology. Continue on letrozole 1 tab daily (3) Essential hypertension: Code(s): I10 - Essential (primary) hypertension Plan: Continue on hydrochlorothiazide 25 mg daily Follow low-salt diet and exercise. (4) Fibroid, uterine: Code(s): D25.9 - Leiomyoma of uterus, unspecified Plan: referral entered to obgyn. Plan Keep scheduled follow up with pcp in 2 weeks. Orders: Orders MR lumbar spine wo/w con Today C50.919 - Malignant neoplasm of unspecified site of unspecified female breast, M89.9 - Disorder of bone, unspecified Referrals [employer] Referral D25.9 - Leiomyoma of uterus, unspecified Coding Level of Care Code Est Pt Level 4 (39803) Diagnoses Lesion of lumbar spine M89.9 Invasive ductal carcinoma of breast C50.919 Essential hypertension I10 Fibroid, uterine D25.9
== END 2023-09-08 12:18 | disposition home or self-care (01) ==
PROVIDERS: PCP Internal Medicine; Visit Provider Nurse Practitioner Family
DX: M89.9 Disorder of bone, unspecified (principal); C50.919 Malignant neoplasm of unspecified site of unspecified female breast; I10 Essential (primary) hypertension; D25.9 Leiomyoma of uterus, unspecified
CPT/HCPCS: 99214

== ENCOUNTER 2023-09-22 13:27 | Outpatient (AMB) | payer OTHER, SELFPAY ==
[2023-09-22 13:28] VITALS: BP 110/70; PULSE 82; O2SAT 98; BMI 24.2
--- NOTE | 2023-09-22 13:28 | A.OFFPC_ITS ---
Vital Signs 09/22/23 13:28 Height 5 ft 2 in Weight 132 lb 6 oz BMI 24.2 BP 110/70 Blood Pressure Location Lt brachial Position Sitting Pulse 82 Pulse Source Pulse Oximeter Pulse Oximetry (%) 98 Oxygen Delivery Method Room Air Intake Visit Reasons: bp Passenger Service Agent Required: No Accompanied by: Self / Same As Patient Allergies oxycodone [From Percocet] Adverse Reaction (Intermediate, Verified 09/22/23 13:43) Vomiting prednisone Adverse Reaction (Intermediate, Verified 09/22/23 13:43) weakness, facial flushing Medication List - Last Reconciled 09/22/23 by Ibeth Beck, SALOMÓN bisacodyl (Dulcolax (bisacodyl)) 10 mg (2 x 5 mg) PO ONCE 3 days buspirone 5 mg PO BID calcitriol 0.25 mcg PO TID 90 days citalopram 20 mg PO DAILY cyclobenzaprine 10 mg PO BEDTIME PRN hydrochlorothiazide 25 mg PO DAILY 90 days ibuprofen 600 mg PO Q6H PRN letrozole 1 tab PO DAILY levothyroxine 100 mcg PO DAILY polyethylene glycol 3350 (Miralax) 17 grams PO DAILY 1 day sennosides-docusate sodium 8.6-50 mg (Senna Plus) 1 tab-cap PO BEDTIME 2 months Tobacco use date assessed: 09/22/23 Fall risk assessment: No Falls in past year Last assessed Fall Risk: 09/22/23 Dental Screening Dental Screen Date: 09/22/23 Did you have a dental visit in the last 12 months?: Yes Did you have a dental problem in the last 6 months where you did not have access to dental care?: No Was dental information given to patient?: Patient has dentist HPI HPI Comments History of Present Illness Details 63-year-old female past medical history significant for hypertension, GERD, hypothyroid, depression and invasive ductal carcinoma of breast.Patient last seen to emergency room follow up. Abdominal CT scan L1 vertebral lucency, lytic lesion cannot be excluded. Stat MRI ordered at time of appointment. Patient reports not received call to set this appointment, will follow up on this order. currently follows with [facility], states she has an upcoming appointment with them in October. Patient requesting medication for anxiety prior to MRI, patient states has been prescribed a past this however she does not side of it. Patient states she felt paralyzed from the medication. Will send hydroxyzine 25mg once prior to MRI for anxiety. [facility] Medical History Postoperative hypothyroidism History of COVID-19 HTN (hypertension) Depression Hypothyroid Invasive ductal carcinoma of breast Breast nodule Headache Sinus pain Thyroid cancer Essential hypertension Hypocalcemia Hypovitaminosis D Surgical History S/P lumpectomy, left breast Hx of endoscopy History of colonoscopy History of breast biopsy History of section History of thyroidectomy Family History Father Diabetes Stroke Prostate cancer Mother Diabetes Maternal Grandmother Medical history unknown Family/Other Breast cancer Social History Housing: Apartment Are you a primary long term care administrator to a significant other at home: No Do you presently have visiting nurse or other home services: No Alcohol intake: former Patient Tobacco Use Status: Never used Tobacco e-Cigarette/Vaping Use: Never Used Second Hand Smoke Exposure: No service: No Current occupational status: unemployed Current occupational exposures/hazards: No Cognitive needs: No Hearing needs: No Vision needs: No Female Reproductive History Menstrual Age of Menarche: 7 Questionnaire PHQ-9 Over the last 2 weeks, how often have you been bothered by any of the following problems? 1. Little interest or pleasure in doing things: several days 2. Feeling down, depressed, or hopeless: several days 3. Trouble falling or staying asleep, or sleeping too much: several days 4. Feeling tired or having little energy: several days 5. Poor appetite or overeating: several days 6. Feeling bad about yourself - or that you are a failure or have let yourself or your family down: several days 7. Trouble concentrating on things, such as reading the newspaper or watching television: several days 8. Moving or speaking so slowly that other people could have noticed. Or the opposite - being so fidgety or restless that you have been moving around a lot more than usual: several days 9. Thoughts that you would be better off or of hurting yourself in some way: several days Total score: 9 Depression Screening Interpretation: Positive Depression Screening Done: Yes 30573 - PHQ-9 Billing: Yes Source: Developed by Drs. Quintin Ugalde, Kristian Nelson and colleagues, with an educational linda from [employer]. Thrive Questionnaire Date Thrive assessed: 09/22/23 I am a: Patient What is your living situation today?: I have a steady place to live Within the past 12 months, did the food you bought not last and you didn't have the money to get more?: Never true Within the past 12 months, did you worry whether your food would run out before you got money to buy more?: Never true Do you have trouble paying for medicines?: No Do you have trouble getting transportation to medical appointments?: No Do you have trouble paying your heating and electricity bill?: No Do you have trouble taking care of your child, family member or friend?: No Do you have trouble with day-to-day activities such as bathing, preparing meals, shopping, managing finances, etc.?: No Are you currently unemployed and looking for a job?: No Are you interested in more education?: No Please select the resources that you would like help with: None Currently or been in a relationship where the following occur: no concerns reported AUDIT C Alcohol Use Questionnaire (AUDIT-C) 1. How often do you have a drink containing alcohol?: Never Total Score: 0 CHARI-7 AMB Questionnaire CHARI-7 Date CHARI - 7 assessed: 09/22/23 Feeling nervous, anxious, or on edge: 0 = Not at all Not being able to stop or control worryin = Not at all Worrying too much about different things: 0 = Not at all Trouble relaxin = Not at all Being so restless that it is hard to sit still: 0 = Not at all Becoming easily annoyed or irritable: 0 = Not at all Feeling afraid as if something awful might happen: 0 = Not at all Total CHARI-7 score (0-4 normal; 5-9 mild; 10-14 moderate; 15-21 severe): 0 Source: Developed by Shayla Thomas Kurt Kroenke and colleagues, with an educational linda from [employer]. Review of Systems Const Denies chills, Denies fatigue, Denies fever(s) and Denies poor appetite Eyes Denies no additional complaints ENT Reports Normal hearing present Card Denies chest pain, Denies syncope, Denies rapid heart rate and Denies dyspnea Resp Denies cough and Denies dyspnea GI Denies change in stool character, Denies constipation, Denies diarrhea, Denies nausea and Denies vomiting Denies urinary frequency, Denies dysuria and Denies urinary urgency Neuro Reports Normal hearing present, Denies confusion and Denies syncope Psych Denies confusion Endo Denies fatigue Physical exam (Primary Care) Vital Signs: Last Vital Signs Pulse 82 09/22/23 13:28 BP 110/70 09/22/23 13:28 Pulse Ox 98 09/22/23 13:28 Oxygen Delivery Method Room Air 09/22/23 13:28 BMI result Body Mass Index 24.2 Tobacco/Smoking Status: Tobacco use Status Tobacco use date assessed 09/22/23 09/22/23 13:35 Patient Tobacco Use Status Never used Tobacco 09/22/23 13:35 e-Cigarette/Vaping Use Never Used 09/22/23 13:35 PHQ-9: PHQ-9 Score PHQ-9: Total score 9 09/22/23 13:52 Depression Screening Interpretation: Positive Thrive Assessment: Date of Thrive Assessment Date Thrive assessed 09/22/23 09/22/23 13:35 Currently or been in a relationship where the following occur: no concerns reported Const General: No confusion Orientation/consciousness: No confusion HENMT Head: Yes normocephalic and Yes atraumatic Eyes Conjunctivae: conjunctivae normal Chest Chest palpation & inspection: normal inspection of the chest Resp Effort & Inspection: normal respiratory effort Auscultation: clear to auscultation bilaterally, no crackles, no rhonchi and no wheezes Cardio Rate: regular rate Rhythm: regular rhythm Heart sounds: S1 normal heart sound present and S2 normal heart sound present GI Inspection: Yes normal to inspection Neuro General: No confusion Cranial nerves: Yes Normal hearing present Extrem General: No edema Assessment and Plan Assessment & Plan (1) Lesion of lumbar spine: Comment: L1 vertebral body luceny, noted on CT Code(s): M89.9 - Disorder of bone, unspecified Plan: Will follow stat MRI that was previously ordered. Take hydroxyzine 25 mg once prior to MRI for anxiety. (2) Mild major depression: Code(s): F32.0 - Major depressive disorder, single episode, mild Plan: continue on citalopram. (3) Invasive ductal carcinoma of breast: Code(s): C50.919 - Malignant neoplasm of unspecified site of unspecified female breast Plan: Continue to follow with Oncologist. (4) Essential hypertension: Code(s): I10 - Essential (primary) hypertension Plan: Continue on HCTZ 25mg daily Follow low salt diet and exercise. Blood pressure optimal in office today. Plan Follow up in 3 months. Medications: New hydroxyzine pamoate prior to MRI 25 mg PO ONCE 1 cap 0RF anxiety Coding Level of Care Code Est Pt Level 4 (63946) Diagnoses Lesion of lumbar spine M89.9 Mild major depression F32.0 Invasive ductal carcinoma of breast C50.919 Essential hypertension I10
== END 2023-09-22 13:54 | disposition home or self-care (01) ==
PROVIDERS: PCP Internal Medicine; Visit Provider Nurse Practitioner Family
DX: M89.9 Disorder of bone, unspecified (principal); F32.0 Major depressive disorder, single episode, mild; C50.919 Malignant neoplasm of unspecified site of unspecified female breast; I10 Essential (primary) hypertension
CPT/HCPCS: 99214

== ENCOUNTER 2023-09-27 10:18 | Outpatient (REF) | payer OTHER, SELFPAY ==
[2023-09-27 11:56] LABS: Alanine Aminotransferase 16 U/L (0-31); Albumin Level 4.4 g/dL (3.5-5.0); Alkaline Phosphatase 67 U/L (39-117); Anion Gap 11 (12-20); Aspartate Amino Transferase 17 U/L (5-31); Bilirubin Total 0.9 mg/dL (0.0-1.0); Blood Urea Nitrogen 19 mg/dL (9-16); Calcium 8.9 mg/dL (8.4-10.2); Carbon Dioxide 34 mmol/L (22-29); Chloride 101 mmol/L (96-108); Cholesterol 172 mg/dL (<200); Estimated Glomerular Filt Rate > 60; Glucose Fasting 91 mg/dL (60-99); HDL Cholesterol 57 mg/dL (>40); LDL Cholesterol Calculated 91 mg/dL (<100); Potassium 3.5 mmol/L (3.3-5.1); Sodium 142 mmol/L (135-145); Total Protein 7.8 g/dL (6.5-8.0); Triglycerides 124 mg/dL (<150)
[2023-09-27 12:04] LABS: Thyroid Stimulating Hormone 0.34 uIU/mL (0.32-4.0); Vitamin D 25-OH Total 48.5 ng/mL (>30)
== END 2023-09-27 10:19 | disposition home or self-care (01) ==
LOC: HO.LAB 10:18
PROVIDERS: PCP Internal Medicine; Visit Provider Internal Medicine
DX: E55.9 Vitamin D deficiency, unspecified (principal); E89.0 Postprocedural hypothyroidism; K21.9 Gastro-esophageal reflux disease without esophagitis; E78.5 Hyperlipidemia, unspecified
CPT/HCPCS: 36415; 80053; 80061; 82306; 84443

== ENCOUNTER 2023-10-27 09:27 | Outpatient (AMB) | payer OTHER, SELFPAY ==
[2023-10-27 09:28] VITALS: BP 146/84; BMI 23.8
--- NOTE | 2023-10-27 09:28 | A.OFFPC_ITS ---
Vital Signs 10/27/23 09:28 10/27/23 10:09 Height 5 ft 2 in Weight 130 lb BMI 23.8 BP 146/84 H 140/80 H Blood Pressure Location Lt brachial Lt brachial Position Sitting Sitting Intake Visit Reasons: back pain/upper stomach pain Intake Note: Patient here c/o back and stomach pain Retail Warehouse Associate Required: No Accompanied by: Self / Same As Patient Allergies oxycodone [From Percocet] Adverse Reaction (Intermediate, Verified 10/27/23 09:36) Vomiting prednisone Adverse Reaction (Intermediate, Verified 10/27/23 09:36) weakness, facial flushing Medication List - Last Reconciled 10/27/23 by Brianna Cruz MD alprazolam 1 mg (2 x 0.5 mg) PO DAILY 1 day bisacodyl (Dulcolax (bisacodyl)) 10 mg (2 x 5 mg) PO ONCE 3 days buspirone 5 mg PO BID calcitriol 0.25 mcg PO TID 90 days citalopram 20 mg PO DAILY cyclobenzaprine 10 mg PO BEDTIME PRN hydrochlorothiazide 25 mg PO DAILY 90 days hydroxyzine pamoate 25 mg PO ONCE ibuprofen 600 mg PO Q6H PRN letrozole 1 tab PO DAILY levothyroxine 100 mcg PO DAILY polyethylene glycol 3350 (Miralax) 17 grams PO DAILY 1 day sennosides-docusate sodium 8.6-50 mg (Senna Plus) 1 tab-cap PO BEDTIME 2 months Tobacco use date assessed: 09/22/23 Fall risk assessment: No Falls in past year Last assessed Fall Risk: 10/27/23 Dental Screening Dental Screen Date: 10/27/23 Did you have a dental visit in the last 12 months?: Yes Did you have a dental problem in the last 6 months where you did not have access to dental care?: No Was dental information given to patient?: Patient has dentist HPI HPI Comments History of Present Illness Details This is a 63-year-old female with mild major depression, anxiety, hypothyroidism after thyroidectomy, history of invasive ductal carcinoma of the breast and hypertension that comes today complaining of anxiety regarding a PET scan that she will have tomorrow order by Oncology in [place]. In August she was having abdominal pain and CT scan of abdomen and pelvis showed a lucency at L1 and Radiology recommended MRI or bone scan due to her history of invasive ductal carcinoma of the breast. She is terrified of PET scan or MRI because it is in a close place and last about 30 minutes. Oncology gave her benzodiazepines to be use before test. Depression stable with citalopram. On buspirone for anxiety. TSH has been stable and had a recent follow-up with endocrinology in [place] which did an ultrasound and everything seems to be fine. Had breast cancer and is on letrozole for this matter. Blood pressure borderline normal to elevated today most likely secondary to anxiety. No chest pain or shortness of breath. [facility] Medical History (Updated 09/08/23 @ 12:56 by SALOMÓN Santa) Postoperative hypothyroidism History of COVID-19 HTN (hypertension) Depression Hypothyroid Invasive ductal carcinoma of breast Breast nodule Headache Sinus pain Thyroid cancer Essential hypertension Hypocalcemia Hypovitaminosis D Surgical History S/P lumpectomy, left breast Hx of endoscopy History of colonoscopy History of breast biopsy History of section History of thyroidectomy Family History Father Diabetes Stroke Prostate cancer Mother Diabetes Maternal Grandmother Medical history unknown Family/Other Breast cancer Social History Housing: Apartment Are you a primary child care aide to a significant other at home: No Do you presently have visiting nurse or other home services: No Alcohol intake: former Patient Tobacco Use Status: Never used Tobacco e-Cigarette/Vaping Use: Never Used Second Hand Smoke Exposure: No service: No Current occupational status: unemployed Current occupational exposures/hazards: No Cognitive needs: No Hearing needs: No Vision needs: No Female Reproductive History Menstrual Age of Menarche: 7 Questionnaire Thrive Questionnaire Date Thrive assessed: 09/22/23 CHARI-7 AMB Questionnaire CHARI-7 Date CHARI - 7 assessed: 09/22/23 Source: Developed by Drs. Quintin Ugalde, Shayla Vidales, Kristian Armenta and colleagues, with an educational linda from [employer]. Review of Systems Const All systems reviewed & are unremarkable except as noted in HPI and below Eyes Reports no additional complaints, Denies change in vision and Denies other visual disturbances Card Denies chest pain at rest, Denies chest pain with activity, Denies edema, Denies irregular heart rhythm, Denies claudication, Denies dyspnea, Denies dyspnea on exertion, Denies orthopnea, Denies paroxysmal nocturnal dyspnea and Denies slow heart rate Resp Denies cough, Denies dyspnea and Denies dyspnea on exertion GI Denies abdominal pain, Denies change in bowel habits, Denies excessive flatus, Denies nausea and Denies vomiting Denies urinary incontinence, Denies urinary hesitancy and Denies urinary urgency Musc Denies abnormal gait, Denies atrophy, Denies deformity and Denies limited range of motion Skin/Breast Denies bleeding lesions, Denies changing lesions and Denies rash Neuro Denies abnormal gait, Denies behavioral changes and Denies lack of coordination Psych Denies behavioral changes Physical exam (Primary Care) Vital Signs: Last Vital Signs BP 140/80 H 10/27/23 10:09 BMI result Body Mass Index 23.8 Tobacco/Smoking Status: Tobacco use Status Tobacco use date assessed 09/22/23 10/27/23 09:32 Patient Tobacco Use Status Never used Tobacco 10/27/23 09:32 e-Cigarette/Vaping Use Never Used 10/27/23 09:32 Thrive Assessment: Date of Thrive Assessment Date Thrive assessed 09/22/23 10/27/23 09:32 Eyes General: appearance normal, both eyes and all related structures Eyelids: Yes eyelids normal Conjunctivae: conjunctivae normal Neck Neck: Yes normal visual inspection and Yes supple Resp Effort & Inspection: normal respiratory effort Auscultation: clear to auscultation bilaterally Cardio Jugular venous distension: no JVD Rate: regular rate Rhythm: regular rhythm Heart sounds: S1 normal heart sound present and S2 normal heart sound present Extrem General: Yes full ROM Psych Affect: Anxious affect present Office Procedures Flu Questionnaire Does the patient have a severe egg allergy?: No Immunizations flu vacc [id number] 6mos up(PF) 60 mcg(15 mcgx4)/0.5 mL IM syringe Performing Provider: Brianna Cruz MD [facility] Documented (not given) by: JOI Lugo on 10/27/23 09:33 Reason Not Given: Patient Refused Assessment and Plan Assessment & Plan (1) Mild major depression: Code(s): F32.0 - Major depressive disorder, single episode, mild Plan: Continue citalopram. (2) Lesion of lumbar spine: Comment: L1 vertebral body luceny, noted on CT Code(s): M89.9 - Disorder of bone, unspecified Plan: Follow-up with Oncology after PET scan scheduled for tomorrow. (3) Postoperative hypothyroidism: Code(s): E89.0 - Postprocedural hypothyroidism Plan: Continue levothyroxine. Monitor TSH. Follow-up with endocrinology in [place]. (4) Invasive ductal carcinoma of breast: Code(s): C50.919 - Malignant neoplasm of unspecified site of unspecified female breast Plan: Continue letrozole. Follow-up with Oncology. (5) Essential hypertension: Code(s): I10 - Essential (primary) hypertension Plan: Continue hydrochlorothiazide. Blood pressure goal is equal or less than 130/80. (6) Anxiety: Code(s): F41.9 - Anxiety disorder, unspecified Plan: Continue buspirone. Orders: Orders Influenza [id number] Immunization Today Z23 - Encounter for immunization NM bone scan limited area Today M89.9 - Disorder of bone, unspecified MR lumbar spine wo/w con 09/08/23 C50.919 - Malignant neoplasm of unspecified site of unspecified female breast, M89.9 - Disorder of bone, unspecified Coding Level of Care Code Est Pt Level 4 (25497) Diagnoses Mild major depression F32.0 Lesion of lumbar spine M89.9 Postoperative hypothyroidism E89.0 Invasive ductal carcinoma of breast C50.919 Essential hypertension I10 Anxiety F41.9 Time Spent (min) 24
[2023-10-27 10:09] VITALS: BP 140/80
== END 2023-10-27 09:53 | disposition home or self-care (01) ==
PROVIDERS: PCP Internal Medicine; Visit Provider Internal Medicine
DX: F32.0 Major depressive disorder, single episode, mild (principal); C50.919 Malignant neoplasm of unspecified site of unspecified female breast; M89.9 Disorder of bone, unspecified; E89.0 Postprocedural hypothyroidism; I10 Essential (primary) hypertension; F41.9 Anxiety disorder, unspecified
CPT/HCPCS: 99214

== ENCOUNTER 2024-04-10 13:29 | Outpatient (AMB) | payer OTHER, SELFPAY ==
--- NOTE | 2024-04-10 13:37 | MHC.PC.OV ---
Vital Signs 04/10/24 13:39 Height 5 ft 2 in Weight 132 lb BMI 24.1 BP 122/80 Blood Pressure Location Lt brachial Position Sitting Intake Visit Reasons: pe Intake Note: Patient here for a physical Exam,c/o right thumb pain with locking Jerker Required: No Accompanied by: Self / Same As Patient Allergies oxycodone [From Percocet] Adverse Reaction (Intermediate, Verified 04/10/24 13:54) Vomiting prednisone Adverse Reaction (Intermediate, Verified 04/10/24 13:54) weakness, facial flushing Medication List - Last Reconciled 04/10/24 by Brianna Cruz MD alprazolam 1 mg (2 x 0.5 mg) PO DAILY 1 day bisacodyl (Dulcolax (bisacodyl)) 10 mg (2 x 5 mg) PO ONCE 3 days buspirone 5 mg PO BID calcitriol 0.25 mcg PO TID 90 days citalopram 20 mg PO DAILY cyclobenzaprine 10 mg PO BEDTIME PRN hydrochlorothiazide 25 mg PO DAILY 90 days hydroxyzine pamoate 25 mg PO ONCE ibuprofen 600 mg PO Q6H PRN letrozole 1 tab PO DAILY levothyroxine 100 mcg PO DAILY 90 days lorazepam 1 mg (2 x 0.5 mg) PO DAILY PRN 2 days polyethylene glycol 3350 (Miralax) 17 grams PO DAILY 1 day sennosides-docusate sodium 8.6-50 mg (Senna Plus) 1 tab-cap PO BEDTIME 2 months Tobacco use date assessed: 04/10/24 Fall risk assessment: No Falls in past year Last assessed Fall Risk: 04/10/24 Dental Screening Dental Screen Date: 04/10/24 Did you have a dental visit in the last 12 months?: Yes Did you have a dental problem in the last 6 months where you did not have access to dental care?: No Was dental information given to patient?: Patient has dentist HPI HPI Comments History of Present Illness Details This is a 63-year-old female with mild major depression that comes for her physical exam. Depression has been stable with citalopram. She has history of breast cancer in 2021 on letrozole and follow by Hematology-Oncology in [place]. Last mammogram was 10/26/2023 and was normal. Last colonoscopy was many years ago and she thinks she needs another colonoscopy. Will be refer to [place] as per patient's wishes. No chest pain or shortness on breath. [facility] Medical History (Updated 04/10/24 @ 14:03 by Brianna Cruz MD) Postoperative hypothyroidism History of COVID-19 HTN (hypertension) Depression Hypothyroid Invasive ductal carcinoma of breast Breast nodule Headache Sinus pain Thyroid cancer Essential hypertension Hypocalcemia Hypovitaminosis D Surgical History S/P lumpectomy, left breast Hx of endoscopy History of colonoscopy History of breast biopsy History of section History of thyroidectomy Family History Father Diabetes Stroke Prostate cancer Mother Diabetes Maternal Grandmother Medical history unknown Family/Other Breast cancer Social History Housing: Apartment Are you a primary child care director to a significant other at home: No Do you presently have visiting nurse or other home services: No Alcohol intake: former Patient Tobacco Use Status: Never used Tobacco e-Cigarette/Vaping Use: Never Used Second Hand Smoke Exposure: No service: No Current occupational status: unemployed Current occupational exposures/hazards: No Cognitive needs: No Hearing needs: No Vision needs: No Female Reproductive History Menstrual Age of Menarche: 7 Questionnaire PHQ-9 Over the last 2 weeks, how often have you been bothered by any of the following problems? 1. Little interest or pleasure in doing things: not at all 2. Feeling down, depressed, or hopeless: several days 3. Trouble falling or staying asleep, or sleeping too much: not at all 4. Feeling tired or having little energy: not at all 5. Poor appetite or overeating: several days 6. Feeling bad about yourself - or that you are a failure or have let yourself or your family down: not at all 7. Trouble concentrating on things, such as reading the newspaper or watching television: not at all 8. Moving or speaking so slowly that other people could have noticed. Or the opposite - being so fidgety or restless that you have been moving around a lot more than usual: not at all 9. Thoughts that you would be better off or of hurting yourself in some way: not at all Total score: 2 Depression Screening Interpretation: Positive Depression Screening Follow-up: Existing condition, In treatment and Follow-up Visit Requested Depression Screening Done: Yes [id number] - PHQ-9 Billing: Yes Source: Developed by Drs. Quintin Ugalde, Shayla Vidales, Kristian Armenta and colleagues, with an educational linda from [employer]. Thrive Questionnaire Date Thrive assessed: 04/10/24 I am a: Patient What is your living situation today?: I have a steady place to live Within the past 12 months, did the food you bought not last and you didn't have the money to get more?: Never true Within the past 12 months, did you worry whether your food would run out before you got money to buy more?: Never true Do you have trouble paying for medicines?: No Do you have trouble getting transportation to medical appointments?: No Do you have trouble paying your heating and electricity bill?: No Do you have trouble taking care of your child, family member or friend?: No Do you have trouble with day-to-day activities such as bathing, preparing meals, shopping, managing finances, etc.?: No Are you currently unemployed and looking for a job?: No Are you interested in more education?: No Please select the resources that you would like help with: None Currently or been in a relationship where the following occur: no concerns reported THRIVE Score: 0 AUDIT C Alcohol Use Questionnaire (AUDIT-C) 1. How often do you have a drink containing alcohol?: Never Total Score: 0 CHARI-7 AMB Questionnaire CHARI-7 Date CHARI - 7 assessed: 04/10/24 Feeling nervous, anxious, or on edge: 1 = Several days Not being able to stop or control worryin = Not at all Worrying too much about different things: 1 = Several days Trouble relaxin = Not at all Being so restless that it is hard to sit still: 0 = Not at all Becoming easily annoyed or irritable: 0 = Not at all Feeling afraid as if something awful might happen: 1 = Several days Total CHARI-7 score (0-4 normal; 5-9 mild; 10-14 moderate; 15-21 severe): 3 Source: Developed by Ruben Thomaset B[employer]W. [employer], Kristian Armenta and colleagues, with an educational linda from [employer]. Review of Systems Const All systems reviewed & are unremarkable except as noted in HPI and below Card Denies chest pain at rest, Denies chest pain with activity, Denies edema, Denies irregular heart rhythm, Denies claudication, Denies dyspnea, Denies dyspnea on exertion, Denies orthopnea, Denies paroxysmal nocturnal dyspnea and Denies slow heart rate Resp Denies cough, Denies dyspnea and Denies dyspnea on exertion GI Denies abdominal pain, Denies change in bowel habits, Denies excessive flatus, Denies nausea and Denies vomiting Denies urinary incontinence, Denies urinary hesitancy and Denies urinary urgency Physical exam (Primary Care) Vital Signs: Last Vital Signs BP 122/80 04/10/24 13:39 BMI result Body Mass Index 24.1 Tobacco/Smoking Status: Tobacco use Status Tobacco use date assessed 04/10/24 04/10/24 13:45 Patient Tobacco Use Status Never used Tobacco 04/10/24 13:45 e-Cigarette/Vaping Use Never Used 04/10/24 13:45 PHQ-9: PHQ-9 Score PHQ-9: Total score 2 04/10/24 14:00 Depression Screening Interpretation: Positive Depression Screening Follow-up: Existing condition, In treatment and Follow-up Visit Requested Thrive Assessment: Date of Thrive Assessment Date Thrive assessed 04/10/24 04/10/24 13:45 Currently or been in a relationship where the following occur: no concerns reported Const Orientation/consciousness: patient oriented x3 [facility] Head: Yes normal to inspection, Yes normocephalic and Yes atraumatic Ears: external ears normal Eyes General: appearance normal, both eyes and all related structures Eyelids: Yes eyelids normal Conjunctivae: conjunctivae normal Neck Neck: Yes normal visual inspection and Yes supple Resp Effort & Inspection: normal respiratory effort Auscultation: clear to auscultation bilaterally Cardio Jugular venous distension: no JVD Rate: regular rate Rhythm: regular rhythm Heart sounds: S1 normal heart sound present and S2 normal heart sound present GI Inspection: Yes normal to inspection Palpation (GI): Soft to palpation and nontender Auscultation: normal bowel sounds Skin General skin exam: no rashes or lesions noted Neuro General: patient oriented x3 and no focal motor deficits Extrem General: Yes full ROM Psych Appearance: grossly normal Assessment and Plan Assessment & Plan (1) Physical exam: Code(s): Z00.00 - Encounter for general adult medical examination without abnormal findings Plan: Repeat in a year. (2) Mild major depression: Code(s): F32.0 - Major depressive disorder, single episode, mild Plan: Continue citalopram. (3) Invasive ductal carcinoma of breast: Code(s): C50.919 - Malignant neoplasm of unspecified site of unspecified female breast Plan: Continue letrozole. Follow-up with Hematology-Oncology. Orders: Referrals Gastroenterology Referral Z12.11 - Encounter for screening for malignant neoplasm of colon Coding Level of Care Code Est Pt Prev Care >65y(20140) Diagnoses Physical exam Z00.00 Mild major depression F32.0 Invasive ductal carcinoma of breast C50.919 Time Spent (min) 35
[2024-04-10 13:39] VITALS: BP 122/80; BMI 24.1
== END 2024-04-10 14:08 | disposition home or self-care (01) ==
PROVIDERS: PCP Internal Medicine; Visit Provider Internal Medicine
DX: Z00.00 Encounter for general adult medical examination without abnormal findings (principal); F32.0 Major depressive disorder, single episode, mild; C50.919 Malignant neoplasm of unspecified site of unspecified female breast
CPT/HCPCS: 99397

== ENCOUNTER 2024-06-07 12:08 | Outpatient (AMB) | payer OTHER, SELFPAY ==
--- NOTE | 2024-06-07 12:13 | AM.OFFWIN_ITS ---
Intake Vital Signs 06/07/24 12:14 Height 5 ft 2 in BP 118/70 Blood Pressure Location Rt brachial Position Sitting Pulse 62 Pulse Source Pulse Oximeter Temp 98.0 F Temp Source Temporal Artery Scan Pulse Oximetry (%) 97 Intake Visit Reasons: possible UTI Intake Note: pt is here for possible uti, burning with urination Patient Tobacco Use Status: Never used Tobacco Allergies oxycodone [From Percocet] Adverse Reaction (Intermediate, Verified 06/07/24 12:16) Vomiting prednisone Adverse Reaction (Intermediate, Verified 06/07/24 12:16) weakness, facial flushing Do you need a note to return to daycare/school/sports/work: No HPI HPI Comments History of Present Illness Details 63 y/o female patient who presents to [facility] walk in clinic with c/o Urinary symptoms x 1 week. She reports urinary frequency and burning. Denies vaginal symptoms. Denies fevers, chills, nausea or vomiting. She does endorse lower abdominal cramping. Denies Hematuria. She has an upcoming appointment with [facility] Supervisor this month. [facility] Medical History Postoperative hypothyroidism History of COVID-19 HTN (hypertension) Depression Hypothyroid Invasive ductal carcinoma of breast Breast nodule Headache Sinus pain Thyroid cancer Essential hypertension Hypocalcemia Hypovitaminosis D Surgical History S/P lumpectomy, left breast Hx of endoscopy History of colonoscopy History of breast biopsy History of section History of thyroidectomy Family History Father Diabetes Stroke Prostate cancer Mother Diabetes Maternal Grandmother Medical history unknown Family/Other Breast cancer Social History Housing: Apartment Are you a primary medicare compliance auditor to a significant other at home: No Do you presently have visiting nurse or other home services: No Alcohol intake: former Patient Tobacco Use Status: Never used Tobacco e-Cigarette/Vaping Use: Never Used Second Hand Smoke Exposure: No service: No Current occupational status: unemployed Current occupational exposures/hazards: No Cognitive needs: No Hearing needs: No Vision needs: No Female Reproductive History Menstrual Age of Menarche: 7 Review of Systems Const All systems reviewed & are unremarkable except as noted in HPI and below Physical Exam Vital Signs: Last Vital Signs Temp 98.0 F 06/07/24 12:14 Pulse 62 06/07/24 12:14 BP 118/70 06/07/24 12:14 Pulse Ox 97 06/07/24 12:14 Const General: comfortable and no acute distress Nutritional Appearance: well nourished Orientation/consciousness: patient oriented x3 GI Palpation (GI): Soft to palpation, not firm, Tenderness to palpation present (GI) suprapubicly, no guarding, not rigid and No hepatosplenomegaly present Other: Deferred Pelvic/[facility] examination. General: Yes no CVA tenderness Back/Spine/Pelvis Back: no CVA tenderness Neuro General: patient oriented x3, gait normal and moves all extremities Psych Speech and movement: Normal speech and movement present Results AMB Urinalysis, Automated UA Leukoctes 70 Yaniv/uL Last Edit by Navdeep Tee CMA on 06/07/24 12:38 UA Nitrite Negative Last Edit by Navdeep Tee CMA on 06/07/24 12:38 UA Urobilinogen 0.2 mg/dL Last Edit by Navdeep Tee CMA on 06/07/24 12 :38 UA Protein 0 mg/dL Last Edit by Navdeep Tee CMA on 06/07/24 12:38 UA pH 7.0 Last Edit by Navdeep Tee CMA on 06/07/24 12:38 UA Blood 0 Xavier/uL Last Edit by Navdeep Tee CMA on 06/07/24 12:38 UA Specific [place] 1.010 Last Edit by Navdeep Tee CMA on 06/07/24 12:38 UA Ketone Negative Last Edit by Navdeep Tee CMA on 06/07/24 12:38 UA Bilirubin 0 mg/dL Last Edit by Navdeep Tee CMA on 06/07/24 12:38 UA Glucose 0 mg/dL Last Edit by Navdeep Tee CMA on 06/07/24 12:38 Results Reviewed Results Reviewed: Laboratory Last Values Urine pH (Auto) 7.0 06/07/24 12:37 Specific [place] (Auto) 1.010 06/07/24 12:37 Urine Protein (Auto) 0 mg/dL 06/07/24 12:37 Glucose (UA)(Auto) 0 mg/dL 06/07/24 12:37 Urine Ketones (Auto) Negative 06/07/24 12:37 Urine Blood (Auto) 0 Xavier/uL 06/07/24 12:37 Urine Nitrite (Auto) Negative 06/07/24 12:37 Urine Bilirubin (Auto) 0 mg/dL 06/07/24 12:37 Urine Urobilinogen (Auto) 0.2 mg/dL 06/07/24 12:37 Leukocyte Esterase (Auto) 70 Yaniv/uL 06/07/24 12:37 Assessment & Plan Assessment & Plan (1) Urinary tract infection symptoms: Code(s): R39.9 - Unspecified symptoms and signs involving the genitourinary system Plan: Ordered Abx F/u with [facility] Super[facility] if symptoms do not improve or as scheduled. U/A with some Leuco, but negative Nit Orders: Orders AMB Urinalysis Automated Today Z13.9 - Encounter for screening, unspecified Medications: New sulfamethoxazole-trimethoprim 800-160 mg (Bactrim DS) 1 tab PO Q12H 3 days 6 tabs 0RF R39.9 - Unspecified symptoms and signs involving the genitourinary system Coding Level of Care Code Est Pt Level 3 (46706) Diagnoses Urinary tract infection symptoms R39.9 Time Spent (min) 15
[2024-06-07 12:14] VITALS: BP 118/70; PULSE 62; TEMP 36.7; O2SAT 97
== END 2024-06-07 12:52 | disposition home or self-care (01) ==
PROVIDERS: PCP Internal Medicine; Visit Provider Nurse Practitioner Family
DX: R39.9 Unspecified symptoms and signs involving the genitourinary system (principal)
CPT/HCPCS: 81003; 99213

== ENCOUNTER 2024-06-28 13:29 | Emergency (ER) | payer OTHER, SELFPAY ==
--- NOTE | ~2024-06-28 | CT_ITS ---
EXAMINATION: CT HEAD WITHOUT CONTRAST CLINICAL INFORMATION: Intermittent headaches. COMPARISON: None. TECHNIQUE: Contiguous axial imaging was performed from the skullbase to vertex without intravenous administration of contrast. This CT examination was performed using dose optimization techniques as appropriate, variously including the following: *Automated exposure control *Adjustment of mA and/or kV according to patient size (this includes techniques or standardized protocols for targeted exams where dose is matched to indication/reason for exam; i.e. extremities or head) *Use of iterative reconstruction technique DLP: 599 mGy-cm. FINDINGS: There is no evidence of acute intracranial hemorrhage or territorial infarction. No abnormal mass effect or midline shift is seen. Alanis to white matter differentiation is well preserved. No extra-axial fluid collections are identified. The ventricles are normal in size. There is no abnormal attenuation within the brain parenchyma. The osseous structures and soft tissues are normal. The mastoid air cells and visualized portions of the paranasal sinuses are well aerated. CT/CT head/brain wo IV con IMPRESSION: No acute intracranial pathology. Electronically signed by: Reji Pugh MD 06/28/2024 04:47 PM EDT
[2024-06-28 14:07] VITALS: BP 159/91; PULSE 79; RESP 16; TEMP 36.6; O2SAT 98; BMI 23.9
--- NOTE | 2024-06-28 14:11 | ED_ITS ---
HPI - Headache General Chief Complaint: Headache Stated Complaint: headaches Time Seen by Provider: 06/28/24 17:17 Source: patient Mode of arrival: ambulatory Limitations: no limitations History of Present Illness ED Provider: arabella OLIVER Narrative: Patient is a 63-year-old female with history of breast cancer in remission since December of 2021, HTN, hypothyroid presenting to the emergency department with complaint of intermittent headaches for the past 2 weeks. Denies history of migraines. She denies fall or other trauma. Denies history of frequent headaches or migraines. Reports some associated nausea but denies vomiting. Denies photophobia. Denies blurred vision, double vision or other visual changes. Denies dizziness or lightheadedness. Has tried Tylenol with little relief. Rates current headache at 5/10. Denies change in pain with position changes. Denies recent weight loss or fevers. States onset was gradual. Denies neck or back pain. MD elicited complaint: headache Pertinent past history: hypertension and other Onset (ago): week(s) Onset description: gradually Location: generalized Pain scale (0-10): 5 Quality & Timing: aching Relieving factors: nothing Context: occurred at rest Associated symptoms: nausea Treatments prior to arrival: acetaminophen Related Data Home Medications ?Medication ?Instructions ?Recorded ?Confirmed buspirone 5 mg tablet 5 mg PO BID 11/04/21 04/10/24 citalopram 20 mg tablet 20 mg PO DAILY 11/04/21 04/10/24 ibuprofen 600 mg tablet 600 mg PO Q6H PRN Pain 03/15/22 04/10/24 letrozole 2.5 mg tablet 1 tab PO DAILY 01/17/23 04/10/24 Previous Rx's ?Medication ?Instructions ?Recorded bisacodyl 5 mg tablet,delayed 10 mg (2 x 5 mg) PO ONCE colon 04/29/22 release (Dulcolax (bisacodyl)) prep 3 days #6 tabs polyethylene glycol 3350 17 17 g PO DAILY colon prep 1 day 04/29/22 gram/dose oral powder (Miralax) #238 grams sennosides 8.6 mg-docusate sodium 1 tab-cap PO BEDTIME 2 months #60 04/29/22 50 mg capsule (Senna Plus) caps cyclobenzaprine 10 mg tablet 10 mg PO BEDTIME PRN muscle spasm 10/11/22 #7 tabs hydroxyzine pamoate 25 mg capsule 25 mg PO ONCE anxiety #1 cap 09/22/23 alprazolam 0.5 mg tablet 1 mg (2 x 0.5 mg) PO DAILY 1 day 10/25/23 #2 tabs lorazepam 0.5 mg tablet 1 mg (2 x 0.5 mg) PO DAILY PRN 11/01/23 anxiety 2 days #4 tabs calcitriol 0.25 mcg capsule 0.25 mcg PO TID 90 days #270 caps 01/21/24 levothyroxine 100 mcg tablet 100 mcg PO DAILY 90 days #90 tabs 01/25/24 hydrochlorothiazide 25 mg tablet 25 mg PO DAILY 90 days #90 tabs 04/14/24 sulfamethoxazole 800 1 tab PO Q12H 3 days #6 tabs 06/07/24 mg-trimethoprim 160 mg tablet (Bactrim DS) [id number]-ytyjaadz 1 cap PO Q8H PRN headache #6 caps 06/28/24 50 mg-300 mg-40 mg capsule (Fioricet) Allergies Allergy/AdvReac Type Severity Reaction Status Date / Time oxycodone [From Percocet] AdvReac Intermediate Vomiting Verified 06/28/24 14:12 prednisone AdvReac Intermediate weakness, Verified 06/28/24 14:12 facial flushing Review of Systems 2 Review of Systems: Yes all other systems are reviewed and are negative Constitutional: Constitutional: Reports as per HPI [facility] Past Medical History Medical History Postoperative hypothyroidism History of COVID-19 HTN (hypertension) Depression Hypothyroid Invasive ductal carcinoma of breast Breast nodule Headache Sinus pain Thyroid cancer Essential hypertension Hypocalcemia Hypovitaminosis D Surgical History S/P lumpectomy, left breast Hx of endoscopy History of colonoscopy History of breast biopsy History of section History of thyroidectomy Family History Family History Father Diabetes Stroke Prostate cancer Mother Diabetes Maternal Grandmother Medical history unknown Family/Other Breast cancer Social History Social History Housing: Apartment Are you a primary care transitions nurse to a significant other at home: No Do you presently have visiting nurse or other home services: No Alcohol intake: former Patient Tobacco Use Status: Never used Tobacco e-Cigarette/Vaping Use: Never Used Second Hand Smoke Exposure: No Advance Directives: No Advance Directives Information Provided: Yes service: No Current occupational status: unemployed Current occupational exposures/hazards: No Cognitive needs: No Hearing needs: No Vision needs: No Physical Exam 2 Vital Signs: Vital Signs: Last Vital Signs Temp 97.6 F 06/28/24 17:23 Pulse 78 06/28/24 17:23 Resp 19 06/28/24 17:23 BP 147/89 H 06/28/24 17:23 Pulse Ox 99 06/28/24 17:23 O2 Del Method Room Air 06/28/24 17:23 BMI result Body Mass Index 23.9 Vital signs have been reviewed and appear to be correct. Blood pressure elevated. Heart rate normal. Respiratory rate normal. Temperature normal. Oxygen saturation normal. Const: General: cooperative, healthy appearing and no acute distress O rientation/consciousness: oriented to person, oriented to place, oriented to time and patient oriented x3 Limitations: no limitations HEENT: Head: Yes normocephalic and Yes atraumatic Ears: external ears normal, TM's normal bilaterally and EAC's normal General nose exam: Normal external nose present Face and sinus: Yes face symmetric Mouth: oropharynx normal and moist mucous membranes Throat: Yes uvula midline Eyes: Pupils: Equal, round and reactive pupils present EOM: EOMs intact bilaterally and No Nystagmus present Neck: Neck: Yes normal visual inspection, Yes full ROM, Yes no lymphadenopathy, Yes no meningeal signs, Yes trachea midline and Yes supple Resp: Effort & Inspection: normal respiratory effort and able to speak in complete sentences Auscultation: clear to auscultation bilaterally Cardio: Rate: regular rate Rhythm: regular rhythm Heart sounds: S1 normal heart sound present and S2 normal heart sound present GI: Palpation (GI): Soft to palpation and nontender Auscultation: n ormoactive bowel sounds : General: Yes no CVA tenderness Back/Spine/Pelvis: Back: no CVA tenderness Cervical Spine: normal cervical lordosis, cervical ROM normal, No cervical muscular tenderness and No pain with cervical ROM Skin: General skin exam: elasticity normal and turgor normal Neuro: General: oriented to person, oriented to place, oriented to time, patient oriented x3, gait normal, tone normal, moves all extremities, Normal light touch and pain sensation, no meningeal signs, no focal motor deficits, CN's II-XI intact bilaterally and deep tendon reflexes 2+ bilaterally Cranial nerves: Yes Equal, round and reactive pupils present and No Nystagmus present Cognition (Neuro): normal cognition Gait exam (Neuro): Normal gait present Motor exam (neuro): 5/5 motor strength present throughout, Pronator motor function not present, no tremor noted, no asterixis, Motor fasciculations not present, Normal motor muscle tone present throughout and Motor abnormalities not present Extrem: General: Yes full ROM, Yes no pedal edema and Yes no calf tenderness Psych: Mental Status: mental status grossly normal Affect: normal affect Thought process: Normal thought process present Course Course Course Narrative: This is a Rapid Medical Examination (RME) performed by Rao Pollock PA-C in triage. Full HPI, ROS, assessment and treatment plan per primary provider in the Main ED. 63 yo female here for eval of intermittent headaches x2 weeks. Headache is not exacerbated with position changes. No history of migraines. History of similar. Taking Tylenol at home with minimal relief, last dose yesterday. Denies vision changes, dizziness, nausea or vomiting, photophobia. Denies injury or trauma to her head. + exam nonfocal. No nystagmus. PERRLA. No midline cervical spinous tenderness or step-off deformity. Plan: Basic labs, CT scan Medical Decision Making Medical Decision Making MDM Narrative: Patient is a 63-year-old female with history of breast cancer in remission since December of 2021, HTN, hypothyroid presenting to the emergency department with complaint of intermittent headaches for the past 2 weeks. On exam patient is awake, A+Ox3, BP elevated, but not requiring emergent medication, VS otherwise WNL, afebrile, normal neurological exam without focal deficits, physical exam findings as above. Given reported symptoms and physical exam findings, initial differential includes tension headache, cluster headache, migraine. Given history of cancer, some concern for malignancy/mass. Labs unremarkable. CT head notable for no acute pathology. My interpretation is in agreement with the radiologist's interpretation. Viral serology negative. Discussed treatment of symptoms with patient and offered IV fluids and IV medications which patient declined, stating she would prefer a prescription which she can take at home. Feel patient is stable and this is reasonable. Will send prescription for a few Fioricet, advised patient to try ibuprofen as well. Recommended patient follow- up with PCP this week. Return precautions discussed at bedside. Patient verbalized understanding of and agreement with plan. Assessment, results, return precautions and plan discussed with in person crown buffer at bedside. Differential Diagnosis Differential Diagnoses: The differential diagnosis associated with the presentation includes As per MDM. Admission/Observation Consideration of admission/observation: Escalation of care including admission/observation considered Patient would have been admitted to the hospital had their work up had any findings where hospital admission was appropriate and their clinical presentation warranted hospital admission. Lab Data [facility] Lab Attestation statement: I reviewed the patient's lab results. As per MDM. 06/28/24 14:18 06/28/24 14:18 Labs: Lab Results 06/28/24 Range/Units 14:18 WBC 6.4 (4.8-10.8) X10*3/uL RBC 4.36 (4.20-5.50) X10*6/uL Hgb 13.9 (12.0-16.0) g/dl Hct 40.5 (37.0-47.0) % MCV 92.9 (80.0-98.0) fL MCH 31.9 (27.0-33.0) pg MCHC 34.3 (31.0-35.0) g/dl RDW 11.9 (11.0-16.0) % Plt Count 202 (160-400) X10*3/uL MPV 11.9 (9.4-12.3) fL Immature Gran % (Auto) 0.2 (0.0-0.4) % Neut % (Auto) 51.0 (45-73) % Lymph % (Auto) 36.8 (20-40) % [place] % (Auto) 10.3 (2-11) % Eos % (Auto) 1.2 (0-4) % Baso % (Auto) 0.5 (0-2) % Lymph # (Auto) 2.4 (1.2-4.9) X10*3/uL [place] # (Auto) 0.7 (0.1-1.2) X10*3/uL Eos # (Auto) 0.1 (0.0-0.4) X10*3/uL Baso # (Auto) 0.0 (0.0-0.2) X10*3/uL Abs Immat Gran (auto) 0.01 (0.00-0.03) X10*3/uL Absolute Neuts (auto) 3.3 (2.0-8.3) x10*3/uL Absolute Nucleated RBC 0.000 (0.0-0.012) X10*3/uL Nucleated RBC % (auto) 0.0 (0.0-0.2) /100WBC Sodium 142 (135-145) mmol/L Potassium 4.2 (3.3-5.1) mmol/L Chloride 102 (96-108) mmol/L Carbon Dioxide 32 H (22-29) mmol/L Anion Gap 12 (12-20) BUN 29 H (9-16) mg/dL Creatinine 1.03 (0.5-1.4) mg/dL Estim Creat Clear Calc 43.0 Estimated GFR 54 Random Glucose 96 (60-115) mg/dL Calcium 9.6 D (8.4-10.2) mg/dL Magnesium 2.2 (1.6-2.6) mg/dL Total Bilirubin 0.5 (0.0-1.0) mg/dL AST 18 (5-31) U/L ALT 14 (0-31) U/L Alkaline Phosphatase 62 (39-117) U/L Total Protein 8.0 (6.5-8.0) g/dL Albumin 4.5 (3.5-5.0) g/dL Influenza Type A (PCR) NEGATIVE (Negative) Influenza Type B (PCR) NEGATIVE (Negative) RSV RNA Qual (PCR) NEGATIVE (Negative) SARS-CoV-2 RNA (RT-PCR) NEGATIVE (Negative) Independent Interpretation I performed an independent interpretation of an: CT Scan Interpretation: No evidence malignancy/mass or ICH on CT head. Radiology Impression Discussion of test interpretation with radiology: I have reviewed the radiologist's reading. Radiologist Impression: CT/CT head/brain wo IV con IMPRESSION: No acute intracranial pathology. Electronically signed by: Reji Pugh MD 06/28/2024 04:47 PM EDT RP External Record Review External record reviewed: Inpatient record, Office record and Outpatient record Prescription Management I considered prescription management with: Pain Medication Discharge Plan Discharge Clinical Impression: Headache Qualifiers: Headache type: tension-type Headache chronicity pattern: chronic headache I ntractability: not intractable Qualified Code(s): G44.229 - Chronic tension-type headache, not intractable Patient Disposition: Home, Self-Care Instructions: Acute Headache (DC) Additional Instructions: You have been evaluated in the emergency department today for headache. Your evaluation did not show evidence of medical conditions requiring emergent intervention at this time, and your pain improves with medication in the ED. We recommend you take 600 mg ibuprofen every 6 hours or Tylenol 650 mg every 6 hours as needed for pain. If needed, you can alternate these medications so that you take 1 medication every 3 hours. For instance, at noon take ibuprofen, then at 3:00 p.m. take Tylenol, then at 6:00 p.m. take ibuprofen. You are being prescribed a few Fioricet which you can take if Tylenol and ibuprofen do not help. Please follow-up with your primary care provider within 2 days. Return to the emergency department if you experience worsening or uncontrolled pain, vision changes, recurrent vomiting, difficulty with normal activities, abnormal behavior, difficulty walking, numbness, weakness, or any other concerning symptoms. Prescriptions: New ayejcmhrcf-pqdoydsdkbkbw-[id number] [Fioricet] 50-300-40 mg capsule 1 cap PO Q8H PRN (Reason: headache) Qty: 6 0RF No Action alprazolam 0.5 mg tablet 1 mg PO DAILY 1 Days Qty: 2 0RF Rx Instructions: Take 30 to 45 minutes before MRI. lorazepam 0.5 mg tablet 1 mg PO DAILY PRN (Reason: anxiety) 2 Days Qty: 4 0RF Rx Instructions: Take 45 minutes before flying calcitriol 0.25 mcg capsule 0.25 mcg PO TID 90 Days Qty: 270 3RF levothyroxine 100 mcg tablet 100 mcg PO DAILY 90 Days Qty: 90 1RF hydrochlorothiazide 25 mg tablet 25 mg PO DAILY 90 Days Qty: 90 1RF letrozole 2.5 mg tablet 1 tab PO DAILY cyclobenzaprine 10 mg tablet 10 mg PO BEDTIME PRN (Reason: muscle spasm) Qty: 7 0RF ibuprofen 600 mg tablet 600 mg PO Q6H PRN (Reason: Pain) hydroxyzine pamoate 25 mg capsule 25 mg PO ONCE Qty: 1 0RF Rx Instructions: prior to MRI sulfamethoxazole-trimethoprim [Bactrim DS] 800-160 mg tablet 1 tab PO Q12H 3 Days Qty: 6 0RF buspirone 5 mg tablet 5 mg PO BID citalopram 20 mg tablet 20 mg PO DAILY Senna Plus 8.6-50 mg capsule 1 tab-cap PO BEDTIME 60 Days Qty: 60 2RF bisacodyl [Dulcolax (bisacodyl)] 5 mg tablet,delayed release (DR/EC) 10 mg PO ONCE 3 Days Qty: 6 0RF Rx Instructions: Take 2 tablets at 12 pm daily starting 3 days before colonoscopy appointment polyethylene glycol 3350 [Miralax] 17 gram/dose powder 17 g PO DAILY 1 Days Qty: 238 0RF Rx Instructions: Mix Miralax with 64 oz(8 cups) of Crystal light. Take 2 tablets of Dulcolax qt 12 pm. Wait to have your 1st bowel movement, then begin drinking Miralax. Drink a glass of Miralax every 10-15 minutes until you are finished. You will drink at least another 4 cups of clear liquid of your choice over the next 2 hours. Please drink as many clear liquids as possible You may have clear liquids up to four hours before your procedure Interventions: ED Discharge Assessment Last Done: 06/28/24 17:48 Print Language: Korean
[2024-06-28 14:21] LABS: MANUAL DIFF FLAG NO
[2024-06-28 14:34] LABS: Basophils Percent Auto 0.5 % (0-2); Eosinophils Absolute Auto 0.1 X10*3/uL (0.0-0.4); Eosinophils Percent Auto 1.2 % (0-4); Hematocrit 40.5 % (37.0-47.0); Hemoglobin 13.9 g/dl (12.0-16.0); Imm Gran Abs Auto 0.01 X10*3/uL (0.00-0.03); Imm Gran Pct Auto 0.2 % (0.0-0.4); Lymphocytes Absolute Auto 2.4 X10*3/uL (1.2-4.9); Lymphocytes Percent Auto 36.8 % (20-40); Mean Corpuscular HGB Conc 34.3 g/dl (31.0-35.0); Mean Corpuscular Hemoglobin 31.9 pg (27.0-33.0); Mean Corpuscular Volume 92.9 fL (80.0-98.0); Mean Platelet Volume 11.9 fL (9.4-12.3); Monocytes Absolute Auto 0.7 X10*3/uL (0.1-1.2); Monocytes Percent Auto 10.3 % (2-11); Neutrophils Absolute Auto 3.3 x10*3/uL (2.0-8.3); Platelet Count 202 X10*3/uL (160-400); Red Blood Count 4.36 X10*6/uL (4.20-5.50); Red Cell Distribution Width 11.9 % (11.0-16.0); White Blood Count 6.4 X10*3/uL (4.8-10.8)
[2024-06-28 14:39] LABS: Alanine Aminotransferase 14 U/L (0-31); Albumin Level 4.5 g/dL (3.5-5.0); Alkaline Phosphatase 62 U/L (39-117); Anion Gap 12 (12-20); Aspartate Amino Transferase 18 U/L (5-31); Bilirubin Total 0.5 mg/dL (0.0-1.0); Blood Urea Nitrogen 29 mg/dL (9-16); Calcium 9.6 mg/dL (8.4-10.2); Carbon Dioxide 32 mmol/L (22-29); Chloride 102 mmol/L (96-108); Estimated Glomerular Filt Rate 54; Glucose Random 96 mg/dL (60-115); Magnesium 2.2 mg/dL (1.6-2.6); Potassium 4.2 mmol/L (3.3-5.1); Sodium 142 mmol/L (135-145)
[2024-06-28 15:04] LABS: Influenza A PCR NEGATIVE (Negative); Influenza B PCR NEGATIVE (Negative); Resp Syncy Virus RNA Qual PCR NEGATIVE (Negative); SARS COV2 PCR INHOUSE NEGATIVE (Negative)
[2024-06-28 17:23] VITALS: BP 147/89; PULSE 78; RESP 19; TEMP 36.4; O2SAT 99
[2024-06-28 17:48] VITALS: BP 147/89; PULSE 78; RESP 19; TEMP 36.4; O2SAT 99
== END 2024-06-28 17:48 | disposition home or self-care (01) ==
PROVIDERS: Physician Assistant Medical; Emergency Provider Emergency Medicine; PCP Internal Medicine
DX: G44.229 Chronic tension-type headache, not intractable (principal); Z03.818 Encounter for observation for suspected exposure to other biological agents ruled out; I10 Essential (primary) hypertension
CPT/HCPCS: 0241U; 70450; 80053; 83735; 85025; 99283; 99284

== ENCOUNTER 2024-07-03 10:50 | Outpatient (AMB) | payer OTHER, SELFPAY ==
--- NOTE | 2024-07-03 10:51 | A.OFFPC_ITS ---
Vital Signs 07/03/24 10:52 Height 5 ft 2 in Weight 131 lb 6 oz BMI 24.0 BP 122/90 H Blood Pressure Location Lt brachial Position Sitting Pulse 90 Pulse Source Pulse Oximeter Pulse Oximetry (%) 97 Oxygen Delivery Method Room Air Intake Visit Reasons: headaches Technical Business Analyst Required: No Accompanied by: Self / Same As Patient Allergies oxycodone [From Percocet] Adverse Reaction (Intermediate, Verified 07/03/24 11:29) Vomiting prednisone Adverse Reaction (Intermediate, Verified 07/03/24 11:29) weakness, facial flushing Medication List - Last Reconciled 07/03/24 by Brianna Cruz MD alprazolam 1 mg (2 x 0.5 mg) PO DAILY 1 day bisacodyl (Dulcolax (bisacodyl)) 10 mg (2 x 5 mg) PO ONCE 3 days buspirone 5 mg PO BID qzzwzfjeue-qtxewkumsgzpq-earx 50-300-40 mg (Fioricet) 1 cap PO Q8H PRN calcitriol 0.25 mcg PO TID 90 days citalopram 20 mg PO DAILY cyclobenzaprine 10 mg PO BEDTIME PRN hydrochlorothiazide 25 mg PO DAILY 90 days hydroxyzine pamoate 25 mg PO ONCE ibuprofen 600 mg PO Q6H PRN letrozole 1 tab PO DAILY levothyroxine 100 mcg PO DAILY 90 days lorazepam 1 mg (2 x 0.5 mg) PO DAILY PRN 2 days polyethylene glycol 3350 (Miralax) 17 grams PO DAILY 1 day sennosides-docusate sodium 8.6-50 mg (Senna Plus) 1 tab-cap PO BEDTIME 2 months sulfamethoxazole-trimethoprim 800-160 mg (Bactrim DS) 1 tab PO Q12H 3 days Tobacco use date assessed: 07/03/24 Fall risk assessment: No Falls in past year Last assessed Fall Risk: 07/03/24 Dental Screening Dental Screen Date: 07/03/24 Did you have a dental visit in the last 12 months?: Yes Did you have a dental problem in the last 6 months where you did not have access to dental care?: No Was dental information given to patient?: Patient has dentist HPI HPI Comments History of Present Illness Details This is a 63-year-old female with hypertension, postoperative hypothyroidism due to thyroid cancer, invasive ductal carcinoma of left breast in remission since 2021 and mild major depression that comes today as ER d ischarge follow-up with discharge date 06/28/2024 due to a headache that starts in parietal area and radiates to occiput and bitemporal areas. No photosensitivity associated with it. No changes in vision or eye pain. No neurological deficit. This headaches can happen anytime of the day. Resolve on its own. Started 3-[address] at ER was negative and labs were within normal limits. She already follows with Neurology. She was given Fioricet at ER but pharmacy said that it was not ready. I will start her on sumatriptan as needed for this headaches. Blood pressure stable. Last TSH was normal. On letrozole for her left breast cancer and follows with Hematology- Oncology in [place]. Depression stable with citalopram and recently lost her Psychiatry. Was referred to [facility] for screening of colon cancer in April 2024 but never received a call and OBGYN refer her to [facility] and already has an appointment. Also complains of some neck pain that happens occasionally. [facility] Medical History (Updated 07/03/24 @ 12:06 by Brianna Cruz MD) Postoperative hypothyroidism History of COVID-19 HTN (hypertension) Depression Hypothyroid Invasive ductal carcinoma of breast Breast nodule Headache Sinus pain Thyroid cancer Essential hypertension Hypocalcemia Hypovitaminosis D Surgical History S/P lumpectomy, left breast Hx of endoscopy History of colonoscopy History of breast biopsy History of section History of thyroidectomy Family History Father Diabetes Stroke Prostate cancer Mother Diabetes Maternal Grandmother Medical history unknown Family/Other Breast cancer Social History Housing: Apartment Are you a primary menagerie caretaker to a significant other at home: No Do you presently have visiting nurse or other home services: No Alcohol intake: former Patient Tobacco Use Status: Never used Tobacco e-Cigarette/Vaping Use: Never Used Second Hand Smoke Exposure: No service: No Current occupational status: unemployed Current occupational exposures/hazards: No Cognitive needs: No Hearing needs: No Vision needs: No Female Reproductive History Menstrual Age of Menarche: 7 Questionnaire PHQ-9 Over the last 2 weeks, how often have you been bothered by any of the following problems? 1. Little interest or pleasure in doing things: not at all 2. Feeling down, depressed, or hopeless: several days 3. Trouble falling or staying asleep, or sleeping too much: not at all 4. Feeling tired or having little energy: not at all 5. Poor appetite or overeating: several days 6. Feeling bad about yourself - or that you are a failure or have let yourself or your family down: not at all 7. Trouble concentrating on things, such as reading the newspaper or watching television: not at all 8. Moving or speaking so slowly that other people could have noticed. Or the opposite - being so fidgety or restless that you have been moving around a lot more than usual: not at all 9. Thoughts that you would be better off or of hurting yourself in some way: not at all Total score: 2 Depression Screening Interpretation: Positive Depression Screening Follow-up: Existing condition, In treatment and Follow-up Visit Requested Depression Screening Done: Yes 29560 - PHQ-9 Billing: Yes Source: Developed by Drs. Quintin Ugalde, Shayla Vidales, Kristian Armenta and colleagues, with an educational linda from [employer]. Thrive Questionnaire Date Thrive assessed: 07/03/24 I am a: Patient What is your living situation today?: I have a steady place to live Within the past 12 months, did the food you bought not last and you didn't have the money to get more?: Never true Within the past 12 months, did you worry whether your food would run out before you got money to buy more?: Never true Do you have trouble paying for medicines?: No Do you have trouble getting transportation to medical appointments?: No Do you have trouble paying your heating and electricity bill?: No Do you have trouble taking care of your child, family member or friend?: No Do you have trouble with day-to-day activities such as bathing, preparing meals, shopping, managing finances, etc.?: No Are you currently unemployed and looking for a job?: No Are you interested in more education?: No Please select the resources that you would like help with: None Currently or been in a relationship where the following occur: No concerns reported THRIVE Score: 0 AUDIT C Alcohol Use Questionnaire (AUDIT-C) 1. How often do you have a drink containing alcohol?: Never Total Score: 0 Score Reviewed/Action Taken: No CHARI-7 AMB Questionnaire CHARI-7 Date CHARI - 7 assessed: 07/03/24 Feeling nervous, anxious, or on edge: 1 = Several days Not being able to stop or control worryin = Not at all Worrying too much about different things: 1 = Several days Trouble relaxin = Not at all Being so restless that it is hard to sit still: 0 = Not at all Becoming easily annoyed or irritable: 0 = Not at all Feeling afraid as if something awful might happen: 1 = Several days Total CHARI-7 score (0-4 normal; 5-9 mild; 10-14 moderate; 15-21 severe): 3 Source: Developed by Drs. Quintin Ugalde, Shayla Vidales, Kristian Armenta and colleagues, with an educational linda from [employer]. CHARI-7 Assessment Billing CHARI-7 Assessment Tool: CHARI-7 Assessment 43663 Review of Systems Const All systems reviewed & are unremarkable except as noted in HPI and below Reports headache(s) ENT Reports headache(s) Card Denies chest pain at rest, Denies chest pain with activity, Denies edema, Denies irregular heart rhythm, Denies claudication, Denies dyspnea, Denies dyspnea on exertion, Denies orthopnea, Denies paroxysmal nocturnal dyspnea and Denies slow heart rate Resp Denies cough, Denies dyspnea and Denies dyspnea on exertion GI Denies abdominal pain, Denies change in bowel habits, Denies excessive flatus, Denies nausea and Denies vomiting Denies urinary incontinence, Denies urinary hesitancy and Denies urinary urgency Musc Denies abnormal gait, Denies atrophy, Denies deformity and Denies limited range of motion Skin/Breast Denies bleeding lesions, Denies changing lesions and Denies rash Neuro Denies abnormal gait, Denies confusion, Reports headache(s) and Denies lack of coordination Psych Denies confusion Physical exam (Primary Care) Vital Signs: Last Vital Signs Pulse 90 07/03/24 10:52 BP 122/90 H 07/03/24 10:52 Pulse Ox 97 07/03/24 10:52 Oxygen Delivery Method Room Air 07/03/24 10:52 BMI result Body Mass Index 24.0 Tobacco/Smoking Status: Tobacco use Status Tobacco use date assessed 07/03/24 07/03/24 10:53 Patient Tobacco Use Status Never used Tobacco 07/03/24 10:53 e-Cigarette/Vaping Use Never Used 07/03/24 10:53 PHQ-9: PHQ-9 Score PHQ-9: Total score 2 07/03/24 11:06 Depression Screening Interpretation: Positive Depression Screening Follow-up: Existing condition, In treatment and Follow-up Visit Requested Thrive Assessment: Date of Thrive Assessment Date Thrive assessed 07/03/24 07/03/24 10:53 Currently or been in a relationship where the following occur: No concerns reported Const General: No confusion Orientation/consciousness: patient oriented x3 and No confusion Resp Effort & Inspection: normal respiratory effort Auscultation: clear to auscultation bilaterally Cardio Jugular venous distension: no JVD Rate: regular rate Rhythm: regular rhythm Heart sounds: S1 normal heart sound present and S2 normal heart sound present Neuro General: patient oriented x3, no focal motor deficits and No confusion Extrem General: Yes full ROM Assessment and Plan Assessment & Plan (1) Neck pain: Code(s): M54.2 - Cervicalgia Plan: X-ray ordered. (2) Mild major depression: Code(s): F32.0 - Major depressive disorder, single episode, mild Plan: Continue citalopram. (3) Headache: Code(s): R51.9 - Headache, unspecified Qualifiers: Headache type: tension-type Headache chronicity pattern: chronic headache Intractability: not intractable Qualified Code(s): G44.229 - Chronic tension-type headache, not intractable Plan: Start sumatriptan as needed. (4) Postoperative hypothyroidism: Code(s): E89.0 - Postprocedural hypothyroidism Plan: Continue levothyroxine. Monitor TSH. (5) Essential hypertension: Code(s): I10 - Essential (primary) hypertension Plan: Continue hydrochlorothiazide. Blood pressure goal is equal or less than 130/80. (6) Invasive ductal carcinoma of breast: Code(s): C50.919 - Malignant neoplasm of unspecified site of unspecified female breast Qualifiers: Laterality: left Qualified Code(s): C50.912 - Malignant neoplasm of unspecified site of left female breast Plan: Continue letrozole. Follow-up with Hematology-Oncology. Orders: Orders XR cervical spine 2V Today M54.2 - Cervicalgia Medications: New sumatriptan succinate do not exceed 8 doses per 24 hrs 25 mg PO Q2-4H 30 days PRN 9 tabs 0RF migraine headache Refilled kopyshtkjf-vtxxznxtxiqmd-trqh 50-300-40 mg (Fioricet) 1 cap PO Q8H PRN 6 caps 0RF headache Coding Level of Care Code Est Pt Level 4 (76676) Complex EM visit Add On G2211 Diagnoses Neck pain M54.2 Mild major depression F32.0 Chronic tension-type headache, not intractable G44.229 Headache type: tension-type Headache chronicity pattern: chronic headache Intractability: not intractable Postoperative hypothyroidism E89.0 Essential hypertension I10 Infiltrating ductal carcinoma of left breast C50.912 Laterality: left Additional Codes CHARI-7 Assessment Billing - CHARI-7 Assessment Tool: CHARI-7 Assessment 25476 ([id number]) Time Spent (min) 24
[2024-07-03 10:52] VITALS: BP 122/90; PULSE 90; O2SAT 97; BMI 24.0
== END 2024-07-03 11:41 | disposition home or self-care (01) ==
PROVIDERS: PCP Internal Medicine; Visit Provider Internal Medicine
DX: M54.2 Cervicalgia (principal); F32.0 Major depressive disorder, single episode, mild; C50.912 Malignant neoplasm of unspecified site of left female breast; G44.229 Chronic tension-type headache, not intractable; E89.0 Postprocedural hypothyroidism; I10 Essential (primary) hypertension
CPT/HCPCS: 99214; G2211

== ENCOUNTER 2024-07-03 11:47 | Outpatient (REF) | payer OTHER, SELFPAY ==
--- NOTE | ~2024-07-03 | XR_ITS ---
EXAMINATION: XR CERVICAL SPINE CLINICAL INFORMATION: Cervical spine pain COMPARISON: Prior x-ray of the cervical spine February 2023.. TECHNIQUE: 3 views of the cervical spine were obtained. FINDINGS: There are no prevertebral soft tissue or bony abnormalities demonstrated. No compression fractures or subluxations are identified. Alignment is maintained at the atlanto-axial articulation. The disc spaces are preserved. No endplate changes are seen. The prevertebral soft tissues are normal. The foramina are patent. XR/XR cervical spine 2V IMPRESSION: Unremarkable examination. Electronically signed by: Nahun Becker MD 07/24/2024 06:43 AM EDT
== END 2024-07-03 11:48 | disposition home or self-care (01) ==
LOC: HO.XRAY 11:47
PROVIDERS: PCP Internal Medicine; Visit Provider Internal Medicine
DX: M54.2 Cervicalgia (principal)
CPT/HCPCS: 72040

== ENCOUNTER 2024-08-29 12:41 | Outpatient (AMB) | payer OTHER, SELFPAY ==
--- NOTE | 2024-08-29 13:02 | MHC.OFFWIV ---
Intake Vital Signs 08/29/24 13:03 Weight 131 lb BP 110/70 Blood Pressure Location Rt brachial Position Sitting Pulse 55 Pulse Source Pulse Oximeter Pulse Oximetry (%) 99 Oxygen Delivery Method Room Air Intake Visit Reasons: EP fall, pain in lt hip Intake Note: Patient here for fall that happened on tuesday and is now having left hip pain. Patient Tobacco Use Status: Never used Tobacco Allergies oxycodone [From Percocet] Adverse Reaction (Intermediate, Verified 08/29/24 13:03) Vomiting prednisone Adverse Reaction (Intermediate, Verified 08/29/24 13:03) weakness, facial flushing Do you need a note to return to daycare/school/sports/work: No HPI EP fall, pain in lt hip HPI Details This note is constructed using voice recognition software. While every effort has been made to ensure accuracy, software sales consultant errors may have been included. The patient is a 64 year old female who presents to the clinic today with left hip pain after a fall 3 days ago. She reports that she fell getting into the shower landing directly on her left hip. She has had some pain since that time which radiates into her upper leg. Pain is worse if she puts pressure on it, moves at all. She reports reduced range of motion as a result of this. She has been taking Tylenol with little effect. She denies previous injury or surgery to the area. She denies chest pain, palpitations, lightheadedness, dizziness prior to the event. [facility] Medical History Postoperative hypothyroidism History of COVID-19 HTN (hypertension) Depression Hypothyroid Invasive ductal carcinoma of breast Breast nodule Headache Sinus pain Thyroid cancer Essential hypertension Hypocalcemia Hypovitaminosis D Surgical History S/P lumpectomy, left breast Hx of endoscopy History of colonoscopy History of breast biopsy History of section History of thyroidectomy Family History Father Diabetes Stroke Prostate cancer Mother Diabetes Maternal Grandmother Medical history unknown Family/Other Breast cancer Social History Housing: Apartment Are you a primary youth career specialist to a significant other at home: No Do you presently have visiting nurse or other home services: No Alcohol intake: former Patient Tobacco Use Status: Never used Tobacco e-Cigarette/Vaping Use: Never Used Second Hand Smoke Exposure: No service: No Current occupational status: unemployed Current occupational exposures/hazards: No Cognitive needs: No Hearing needs: No Vision needs: No Female Reproductive History Menstrual Age of Menarche: 7 Review of Systems Const All systems reviewed & are unremarkable except as noted in HPI and below Physical Exam Vital Signs: Last Vital Signs Pulse 55 08/29/24 13:03 BP 110/70 08/29/24 13:03 Pulse Ox 99 08/29/24 13:03 Oxygen Delivery Method Room Air 08/29/24 13:03 Const General: cooperative, healthy appearing, comfortable, no acute distress and well developed Orientation/consciousness: patient oriented x3 Limitations: no limitations Resp Effort & Inspection: normal respiratory effort and able to speak in complete sentences Skin General skin exam: no rashes or lesions noted Neuro General: patient oriented x3 Extrem Other: Strength 5/5, equal bilaterally. Abduction reduced to 15 degrees, adduction reduced to 15 degrees, both due to pain. Generalized tenderness, left hip radiating into the left lumbar region. Antalgic gait present. No obvious leg length discrepancy. General: Yes normal to inspection Assessment & Plan Assessment & Plan (1) Left hip pain: Code(s): M25.552 - Pain in left hip Plan: X-ray without obvious fracture. There is visible arthritis in the image images results reviewed with patient. Advised heat/ice Tylenol/Motrin. Consistent with contusion, which we reviewed may take up to several weeks to fully resolve. Advised follow up as needed with worsening pain or failure to resolve. Additionally we discussed that this might be a good time to consider having grab bars installed in the bathroom and even consideration shower chair if needed should she have additional falls. Plan See above for full details and plan. Coding Level of Care Code Est Pt Level 4 (71746) Diagnoses Left hip pain M25.552
[2024-08-29 13:03] VITALS: BP 110/70; PULSE 55; O2SAT 99
== END 2024-08-29 14:17 | disposition home or self-care (01) ==
PROVIDERS: PCP Internal Medicine; Visit Provider Registered Nurse
DX: M25.552 Pain in left hip (principal)

== ENCOUNTER → 2024-08-29 12:41 | Outpatient (BNVA) | payer OTHER, SELFPAY | PROVIDERS: PCP Internal Medicine; Visit Provider Registered Nurse ==

== ENCOUNTER 2024-08-29 13:20 | Outpatient (REF) | payer OTHER, SELFPAY ==
--- NOTE | ~2024-08-29 | XR_ITS ---
EXAMINATION: XR HIP, LEFT CLINICAL INFORMATION: Left hip pain COMPARISON: None available. TECHNIQUE: Single view pelvis and 2 views of the left hip. FINDINGS: Some mild degenerative changes are present in both hips with some lateral acetabular osteophytes. No hip fractures are seen. No pelvic fracture or bony destructive lesions are seen. Alignment is anatomic. Hip joint space is maintained. Soft tissues are unremarkable. XR/XR hip LT w PEL1V IMPRESSION: Mild degenerative changes in both hips. No acute finding. Electronically signed by: Khanh Driver MD 08/30/2024 09:43 AM EDT
== END 2024-08-29 13:21 | disposition home or self-care (01) ==
LOC: HO.HMGCX 13:20
PROVIDERS: PCP Internal Medicine; Visit Provider Registered Nurse
DX: M25.552 Pain in left hip (principal)
CPT/HCPCS: 73502; 99212

== ENCOUNTER 2024-09-20 08:53 | Outpatient (AMB) | payer OTHER, SELFPAY ==
--- NOTE | 2024-09-20 09:08 | MHC.PC.OV ---
Vital Signs 09/20/24 09:09 Height 5 ft 2 in Weight 130 lb 6 oz BMI 23.8 BP 130/76 Blood Pressure Location Lt brachial Position Sitting Pulse 80 Pulse Source Pulse Oximeter Pulse Oximetry (%) 97 Oxygen Delivery Method Room Air Intake Visit Reasons: IngrownFinguerNailPain Intake Note: Patient is here to follow up on Ingrown nail in right great toe. Pt decline flu shot today. Safety Leader Required: Yes Safety Leader Language: Estonian Information Interpreted: non-clinical & clinical Instructional Design Manager: Not Required per policy Accompanied by: Self / Same As Patient Allergies oxycodone [From Percocet] Adverse Reaction (Intermediate, Verified 09/20/24 09:09) Vomiting prednisone Adverse Reaction (Intermediate, Verified 09/20/24 09:09) weakness, facial flushing Tobacco use date assessed: 09/20/24 Fall risk assessment: No Falls in past year Last assessed Fall Risk: 09/20/24 Dental Screening Dental Screen Date: 07/03/24 HPI IngrownFinguerNailPain HPI Details 64 yr old female presents to the office for a sick visit. I am covering for her regular PCP. Patient is complaining of pain and oozing over the nail. Specifically the fifth toe on the left foot. She had cut her nail a bit deeper. Tender at the corners. [facility] Medical History Postoperative hypothyroidism History of COVID-19 HTN (hypertension) Depression Hypothyroid Invasive ductal carcinoma of breast Breast nodule Headache Sinus pain Thyroid cancer Essential hypertension Hypocalcemia Hypovitaminosis D Surgical History S/P lumpectomy, left breast Hx of endoscopy History of colonoscopy History of breast biopsy History of section History of thyroidectomy Family History Father Diabetes Stroke Prostate cancer Mother Diabetes Maternal Grandmother Medical history unknown Family/Other Breast cancer Social History Housing: Apartment Are you a primary care navigator to a significant other at home: No Do you presently have visiting nurse or other home services: No Alcohol intake: former Patient Tobacco Use Status: Never used Tobacco e-Cigarette/Vaping Use: Never Used Second Hand Smoke Exposure: No service: No Current occupational status: unemployed Current occupational exposures/hazards: No Cognitive needs: No Hearing needs: No Vision needs: No Female Reproductive History Menstrual Age of Menarche: 7 Questionnaire Thrive Questionnaire Date Thrive assessed: 07/03/24 CHARI-7 AMB Questionnaire CHARI-7 Date CHARI - 7 assessed: 07/03/24 Source: Developed by Drs. Quintin Ugalde, Shayla Vidales, Kristian Armenta and colleagues, with an educational linda from [employer]. Physical exam (Primary Care) Vital Signs: Last Vital Signs Pulse 80 09/20/24 09:09 BP 130/76 09/20/24 09:09 Pulse Ox 97 09/20/24 09:09 Oxygen Delivery Method Room Air 09/20/24 09:09 BMI result Body Mass Index 23.8 Tobacco/Smoking Status: Tobacco use Status Tobacco use date assessed 09/20/24 09/20/24 09:15 Patient Tobacco Use Status Never used Tobacco 09/20/24 09:15 e-Cigarette/Vaping Use Never Used 09/20/24 09:15 Thrive Assessment: Date of Thrive Assessment Date Thrive assessed 07/03/24 09/20/24 09:15 Extrem Other: Left foot: Fifth toe: swelling around the nail bed cuticle, minimal oozing. Erythema and tender. Coding Level of Care Code Est Pt Level 3 (35287) Complex EM visit Add On G2211 Diagnoses Paronychia of fifth toe of left foot L03.032 Assessment & Plan Assessment & Plan (1) Paronychia of fifth toe of left foot: Code(s): L03.032 - Cellulitis of left toe Plan: Warm compress. Take the antibiotics prescribed. If sx worsen to follow up here. Medications: New cephalexin 500 mg PO BID 14 caps 0RF
[2024-09-20 09:09] VITALS: BP 130/76; PULSE 80; O2SAT 97; BMI 23.8
== END 2024-09-20 09:43 | disposition home or self-care (01) ==
PROVIDERS: PCP Internal Medicine; Visit Provider Internal Medicine
DX: L03.032 Cellulitis of left toe (principal)

== ENCOUNTER → 2024-09-20 08:53 | Outpatient (BNVA) | payer OTHER, SELFPAY | PROVIDERS: PCP Internal Medicine; Visit Provider Internal Medicine | DX: L03.032 Cellulitis of left toe (principal) | CPT/HCPCS: 99212 ==

== ENCOUNTER 2024-09-23 03:26 | Emergency (ER) | payer OTHER, SELFPAY ==
[2024-09-23 03:27] VITALS: BP 143/81; PULSE 85; RESP 16; TEMP 36.9; O2SAT 99; BMI 24.2
[2024-09-23 04:28] VITALS: BP 157/89; PULSE 72; RESP 16; TEMP 37.2; O2SAT 97
--- NOTE | 2024-09-23 06:13 | ED.GENADULT ---
HPI - General Adult General Chief complaint: Extremity Injury, Lower Stated complaint: toe pain Time Seen by Provider: 09/23/24 05:56 Source: patient Mode of arrival: ambulatory Limitations: no limitations History of Present Illness ED Provider: Dr. Fabiola Ayers HPI narrative: Patient comes to the emergency room complaining of pain/embedded toenail of the great toe medial aspect of the right foot. Patient states it has been going on for about a week. Related Data Home Medications ?Medication ?Instructions ?Recorded ?Confirmed buspirone 5 mg tablet 5 mg PO BID 11/04/21 07/03/24 citalopram 20 mg tablet 20 mg PO DAILY 11/04/21 07/03/24 ibuprofen 600 mg tablet 600 mg PO Q6H PRN Pain 03/15/22 07/03/24 letrozole 2.5 mg tablet 1 tab PO DAILY 01/17/23 07/03/24 Previous Rx's ?Medication ?Instructions ?Recorded bisacodyl 5 mg tablet,delayed 10 mg (2 x 5 mg) PO ONCE colon 04/29/22 release (Dulcolax (bisacodyl)) prep 3 days #6 tabs polyethylene glycol 3350 17 17 g PO DAILY colon prep 1 day 04/29/22 gram/dose oral powder (Miralax) #238 grams sennosides 8.6 mg-docusate sodium 1 tab-cap PO BEDTIME 2 months #60 04/29/22 50 mg capsule (Senna Plus) caps cyclobenzaprine 10 mg tablet 10 mg PO BEDTIME PRN muscle spasm 10/11/22 #7 tabs hydroxyzine pamoate 25 mg capsule 25 mg PO ONCE anxiety #1 cap 09/22/23 alprazolam 0.5 mg tablet 1 mg (2 x 0.5 mg) PO DAILY 1 day 10/25/23 #2 tabs lorazepam 0.5 mg tablet 1 mg (2 x 0.5 mg) PO DAILY PRN 11/01/23 anxiety 2 days #4 tabs calcitriol 0.25 mcg capsule 0.25 mcg PO TID 90 days #270 caps 01/21/24 hydrochlorothiazide 25 mg tablet 25 mg PO DAILY 90 days #90 tabs 04/14/24 iejdeloymn-rlwpjfrpsqqry-zyohpxea 1 cap PO Q8H PRN headache #6 caps 07/03/24 50 mg-300 mg-40 mg capsule (Fioricet) sumatriptan succinate 25 mg tablet 25 mg PO Q2-4H PRN migraine 07/03/24 headache 30 days #9 tabs levothyroxine 100 mcg tablet 100 mcg PO DAILY 90 days #90 tabs 07/14/24 cephalexin 500 mg capsule 500 mg PO BID #14 caps 09/20/24 bedside assist rail #1 ea 09/21/24 chrome bar #1 ea 09/21/24 chrome bar #1 ea 09/21/24 hinged bolt down toilet seat riser #1 ea 09/21/24 Allergies Allergy/AdvReac Type Severity Reaction Status Date / Time oxycodone [From Percocet] AdvReac Intermediate Vomiting Verified 09/23/24 03:28 prednisone AdvReac Intermediate weakness, Verified 09/23/24 03:28 facial flushing Review of Systems Review of Systems: Constitutional : No Weight loss, No Fever, No Chills, No Night Sweats, No Fatigue, No Malaise ENT/Mouth : No Hearing loss, No Ear Pain, No Nasal Congestion, No Sinus Pain, No Hoarseness, No sore throat, No Rhinorrhea, No Swallowing Difficulty Eyes: No Eye Pain, No Swelling, No Redness, No Foreign Body, No Discharge, No Vision Changes Cardiovascular : No Chest Pain, No SOB, No Dyspnea on Exertion, No Orthopnea, No Edema, No Palpitations Respiratory : No Cough, No Sputum, No Wheezing, No Smoke Exposure, No Dyspnea Gastrointestinal : No Nausea, No Vomiting, No Diarrhea, No Constipation, No abdominal Pain, No Hematochezia, No Melena Genitourinary : no irregular bleeding, No Dysuria, No Urinary Frequency, No Hematuria, No Urinary Incontinence, No Urgency, No Flank Pain, No Urinary Flow Changes, No Hesitancy Musculoskeletal : No joint pain, No Myalgias, No Joint Swelling Skin : No Skin Lesions, No rash. Complaining of an ingrown toenail right foot great toe medial aspect Neuro : No Weakness, No Numbness, No Paresthesias, No Loss of Consciousness, No Dizziness, No Headache Psych : No Anxiety/Panic, No Depression, No SI/HI/AH/VH, No Social Issues, Heme/Lymph: No Bruising, No Bleeding,No Lymphadenopathy Endocrine : No Polyuria, No Polydipsia, No Temperature Intolerance PMFSH Past Medical History Medical History Postoperative hypothyroidism History of COVID-19 HTN (hypertension) Depression Hypothyroid Invasive ductal carcinoma of breast Breast nodule Headache Sinus pain Thyroid cancer Essential hypertension Hypocalcemia Hypovitaminosis D Surgical History S/P lumpectomy, left breast Hx of endoscopy History of colonoscopy History of breast biopsy History of section History of thyroidectomy Family History Family History Father Diabetes Stroke Prostate cancer Mother Diabetes Maternal Grandmother Medical history unknown Family/Other Breast cancer Social History Social History Housing: Apartment Are you a primary senior care assistant to a significant other at home: No Do you presently have visiting nurse or other home services: No Alcohol intake: former Patient Tobacco Use Status: Never used Tobacco Smoked in Last 30 Days: No e-Cigarette/Vaping Use: Never Used Second Hand Smoke Exposure: No Use of substances other than those prescribed or required for medical reasons: No Advance Directives: No Advance Directives Information Provided: No Do you have a plan to hurt others: No Plan service: No Current occupational status: unemployed Current occupational exposures/hazards: No Cognitive needs: No Hearing needs: No Vision needs: No Physical Exam ED Vital Signs: Vital Signs - 24 hr 09/23/24 03:27 09/23/24 04:28 Temperature 98.5 F 98.9 F Pulse Rate 85 72 Respiratory Rate 16 16 Blood Pressure 143/81 H 157/89 H Pulse Oximetry 99 97 Oxygen Delivery Method Room Air Room Air BMI result Body Mass Index 24.2 Const Other: Appearance: Alert. Oriented X3. No acute distress. Eyes: Pupils equal, round and reactive to light. ENT: Pharynx normal. Neck: Normal inspection. Neck supple. No lymph nodes noted. No crepitus CVS: Normal heart rate and rhythm. Pulses normal. Normal S1 and S2 Respiratory: No respiratory distress. Breath sounds normal. No Wheezing. No rales Abdomen: Soft and nontender. No rigidity. No distention. Skin: Skin warm and dry. Normal skin color. Normal skin turgor. Patient has an ingrown toenail in the medial aspect of the great toe of the right foot Extremities: No lower extremity edema. No Lacerations. No Rash Neuro: Oriented X 3. No motor deficit. No sensory deficit. Moving all extremities. No slurred speech. CN 2 through 12 grossly intact Psych: calm, cooperative, normal affect Medical Decision Making Medical Decision Making MDM Narrative: I discussed with the patient that we can remove part of the nail with or without lidocaine. Patient decided to go ahead and tried without. -the corner of the distal end of the toenail of the great toe right foot was removed. Patient states that she feels significant relief. No pus or signs of infection or cellulitis. Discharge Plan Discharge Clinical Impression: Embedded toenail Patient Disposition: Home, Self-Care Instructions: Ingrown Nail (ED) Additional Instructions: Please follow-up with your primary care physician tomorrow. If you have any worsening or new symptoms, please return to the emergency room or call 911 Prescriptions: No Action alprazolam 0.5 mg tablet 1 mg PO DAILY 1 Days Qty: 2 0RF Rx Instructions: Take 30 to 45 minutes before MRI. lorazepam 0.5 mg tablet 1 mg PO DAILY PRN (Reason: anxiety) 2 Days Qty: 4 0RF Rx Instructions: Take 45 minutes before flying calcitriol 0.25 mcg capsule 0.25 mcg PO TID 90 Days Qty: 270 3RF hydrochlorothiazide 25 mg tablet 25 mg PO DAILY 90 Days Qty: 90 1RF levothyroxine 100 mcg tablet 100 mcg PO DAILY 90 Days Qty: 90 1RF (DME) bedside assist rail See Rx Instructions .Route .MEDSUPPLY Qty: 1 0RF Rx Instructions: As directed (DME) hinged bolt down toilet seat riser See Rx Instructions .Route .MEDSUPPLY Qty: 1 0RF Rx Instructions: As directed (DME) chrome bar 18 See Rx Instructions .Route .MEDSUPPLY Qty: 1 0RF Rx Instructions: As directed (DME) chrome bar 24 See Rx Instructions .Route .MEDSUPPLY Qty: 1 0RF Rx Instructions: As directed letrozole 2.5 mg tablet 1 tab PO DAILY cyclobenzaprine 10 mg tablet 10 mg PO BEDTIME PRN (Reason: muscle spasm) Qty: 7 0RF ibuprofen 600 mg tablet 600 mg PO Q6H PRN (Reason: Pain) hydroxyzine pamoate 25 mg capsule 25 mg PO ONCE Qty: 1 0RF Rx Instructions: prior to MRI yqwcpfaopz-kqnfaxsibrjue-dxar [Fioricet] 50-300-40 mg capsule 1 cap PO Q8H PRN (Reason: headache) Qty: 6 0RF sumatriptan succinate 25 mg tablet 25 mg PO Q2-4H PRN (Reason: migraine headache) 30 Days Qty: 9 0RF Rx Instructions: do not exceed 8 doses per 24 hrs buspirone 5 mg tablet 5 mg PO BID citalopram 20 mg tablet 20 mg PO DAILY Senna Plus 8.6-50 mg capsule 1 tab-cap PO BEDTIME 60 Days Qty: 60 2RF bisacodyl [Dulcolax (bisacodyl)] 5 mg tablet,delayed release (DR/EC) 10 mg PO ONCE 3 Days Qty: 6 0RF Rx Instructions: Take 2 tablets at 12 pm daily starting 3 days before colonoscopy appointment polyethylene glycol 3350 [Miralax] 17 gram/dose powder 17 g PO DAILY 1 Days Qty: 238 0RF Rx Instructions: Mix Miralax with 64 oz(8 cups) of Crystal light. Take 2 tablets of Dulcolax qt 12 pm. Wait to have your 1st bowel movement, then begin drinking Miralax. Drink a glass of Miralax every 10-15 minutes until you are finished. You will drink at least another 4 cups of clear liquid of your choice over the next 2 hours. Please drink as many clear liquids as possible You may have clear liquids up to four hours before your procedure cephalexin 500 mg capsule 500 mg PO BID Qty: 14 0RF Print Language: Faroese
[2024-09-23 06:28] VITALS: BP 157/89; PULSE 72; RESP 16; TEMP 37.2; O2SAT 97
== END 2024-09-23 06:28 | disposition home or self-care (01) ==
PROVIDERS: Emergency Provider Emergency Medicine; PCP Internal Medicine
DX: L60.0 Ingrowing nail (principal); M79.671 Pain in right foot
CPT/HCPCS: 11750; 99284

== ENCOUNTER 2024-10-14 02:36 | Emergency (ER) | payer OTHER, SELFPAY ==
--- NOTE | ~2024-10-14 | CT_ITS ---
EXAMINATION: CT ABDOMEN AND PELVIS WITHOUT CONTRAST CLINICAL INFORMATION: Abdominal pain. COMPARISON: September 02, 2023 TECHNIQUE: Multidetector volumetric imaging was performed from the superior aspect of the liver through the pubic symphysis. Sagittal and coronal reformatted images were obtained on the technologist's workstation. This CT examination was performed using dose optimization techniques as appropriate, variously including the following: *Automated exposure control *Adjustment of mA and/or kV according to patient size (this includes techniques or standardized protocols for targeted exams where dose is matched to indication/reason for exam; i.e. extremities or head) *Use of iterative reconstruction technique DLP: 391 mGy-cm FINDINGS: LUNG BASES: There is scarring at both lung bases. LIVER, GALLBLADDER, AND BILIARY TREE: The liver is normal in size, shape, and attenuation. No focal hepatic lesion or biliary ductal dilatation is present. The gallbladder is unremarkable with no evidence of radiopaque gallstones, gallbladder wall thickening, or obvious pericholecystic inflammatory changes. PANCREAS: Unremarkable. SPLEEN: Unremarkable. ADRENAL GLANDS: Unremarkable. KIDNEYS AND URETERS: The kidneys are normal in size, shape, and attenuation. No hydronephrosis, hydroureter, or calculi seen. No perinephric stranding. BLADDER: Unremarkable. GASTROINTESTINAL TRACT: There is retained stool throughout the colon. The appendix is not identified. ABDOMINAL WALL: No significant hernia is appreciated. LYMPH NODES: Normal. VASCULAR: There is mild atherosclerotic plaque of the abdominal aorta. PELVIC VISCERA: The uterus is enlarged and lobular with myometrial masses measuring up to 4.7 cm. OSSEOUS STRUCTURES: Unremarkable. CT/CT abdomen pelvis wo IV con IMPRESSION: 1. No acute abnormality. 2. Uterine fibroids. 3. Retained stool throughout. Fleischner guidelines were followed. Electronically signed by: Og Arreola MD 10/14/2024 06:37 AM [facility]
[2024-10-14 02:50] VITALS: BP 137/80; PULSE 98; RESP 16; TEMP 36.1; O2SAT 96; BMI 24.2
[2024-10-14 03:30] LABS: MANUAL DIFF FLAG NO
[2024-10-14 03:33] LABS: Basophils Percent Auto 0.5 % (0-2); Eosinophils Absolute Auto 0.1 X10*3/uL (0.0-0.4); Eosinophils Percent Auto 1.9 % (0-4); Hematocrit 36.2 % (37.0-47.0); Hemoglobin 12.4 g/dl (12.0-16.0); Imm Gran Abs Auto 0.02 X10*3/uL (0.00-0.03); Imm Gran Pct Auto 0.3 % (0.0-0.4); Lymphocytes Absolute Auto 2.1 X10*3/uL (1.2-4.9); Lymphocytes Percent Auto 33.1 % (20-40); Mean Corpuscular HGB Conc 34.3 g/dl (31.0-35.0); Mean Corpuscular Hemoglobin 31.6 pg (27.0-33.0); Mean Corpuscular Volume 92.3 fL (80.0-98.0); Mean Platelet Volume 11.8 fL (9.4-12.3); Monocytes Percent Auto 16.6 % (2-11); Neutrophils Percent Auto 47.6 % (45-73); Platelet Count 186 X10*3/uL (160-400); Red Blood Count 3.92 X10*6/uL (4.20-5.50); Red Cell Distribution Width 12.1 % (11.0-16.0); White Blood Count 6.3 X10*3/uL (4.8-10.8)
[2024-10-14 03:50] LABS: Alanine Aminotransferase 11 U/L (0-31); Alkaline Phosphatase 51 U/L (39-117); Anion Gap 13 (12-20); Aspartate Amino Transferase 19 U/L (5-31); Bilirubin Total 0.5 mg/dL (0.0-1.0); Blood Urea Nitrogen 25 mg/dL (9-16); Calcium 8.7 mg/dL (8.4-10.2); Carbon Dioxide 29 mmol/L (22-29); Chloride 103 mmol/L (96-108); Estimated Glomerular Filt Rate > 60; Glucose Random 121 mg/dL (60-115); Lipase 28 U/L (8-78); Potassium 3.4 mmol/L (3.3-5.1); Sodium 142 mmol/L (135-145); Total Protein 7.1 g/dL (6.5-8.0)
[2024-10-14 04:02] LABS: COVID-19 Test Negative (Negative); IDNOW Serial# 152EDE1D
[2024-10-14 04:02] LABS: IDNOW Serial# 08D9AD1C; Influenza A Negative (Negative); Influenza B2 Negative (Negative)
--- NOTE | 2024-10-14 04:47 | ED_ITS ---
HPI - Abdominal Pain General Chief Complaint: Abdominal Pain Stated Complaint: left side abd pain Time Seen by Provider: 10/14/24 04:46 Source: patient Mode of arrival: ambulatory Limitations: no limitations History of Present Illness ED Provider: HPI narrative: Patient's history of constipation last bowel movement was 5 days ago took stool softener and had small bowel movement earlier comes here with lower abdominal pain for last 2 days pain is more localized to the left side no nausea no vomiting no urinary symptoms also complaining of nasal congestion cough Related Data Home Medications ?Medication ?Instructions ?Recorded ?Confirmed buspirone 5 mg tablet 5 mg PO BID 11/04/21 07/03/24 citalopram 20 mg tablet 20 mg PO DAILY 11/04/21 07/03/24 ibuprofen 600 mg tablet 600 mg PO Q6H PRN Pain 03/15/22 07/03/24 letrozole 2.5 mg tablet 1 tab PO DAILY 01/17/23 07/03/24 Previous Rx's ?Medication ?Instructions ?Recorded bisacodyl 5 mg tablet,delayed 10 mg (2 x 5 mg) PO ONCE colon 04/29/22 release (Dulcolax (bisacodyl)) prep 3 days #6 tabs polyethylene glycol 3350 17 17 g PO DAILY colon prep 1 day 04/29/22 gram/dose oral powder (Miralax) #238 grams sennosides 8.6 mg-docusate sodium 1 tab-cap PO BEDTIME 2 months #60 04/29/22 50 mg capsule (Senna Plus) caps cyclobenzaprine 10 mg tablet 10 mg PO BEDTIME PRN muscle spasm 10/11/22 #7 tabs hydroxyzine pamoate 25 mg capsule 25 mg PO ONCE anxiety #1 cap 09/22/23 alprazolam 0.5 mg tablet 1 mg (2 x 0.5 mg) PO DAILY 1 day 10/25/23 #2 tabs lorazepam 0.5 mg tablet 1 mg (2 x 0.5 mg) PO DAILY PRN 11/01/23 anxiety 2 days #4 tabs calcitriol 0.25 mcg capsule 0.25 mcg PO TID 90 days #270 caps 01/21/24 ygnszhqmex-zbhlzlrgpjsiw-tkvohicf 1 cap PO Q8H PRN headache #6 caps 07/03/24 50 mg-300 mg-40 mg capsule (Fioricet) sumatriptan succinate 25 mg tablet 25 mg PO Q2-4H PRN migraine 07/03/24 headache 30 days #9 tabs levothyroxine 100 mcg tablet 100 mcg PO DAILY 90 days #90 tabs 07/14/24 cephalexin 500 mg capsule 500 mg PO BID #14 caps 09/20/24 Grabber #1 ea 09/24/24 bedside assist rail #1 ea 09/24/24 chrome bar #1 ea 09/24/24 chrome bar #1 ea 09/24/24 hinged bolt down toilet seat riser #1 ea 09/24/24 hydrochlorothiazide 25 mg tablet 25 mg PO DAILY 90 days #90 tabs 10/11/24 polyethylene glycol 3350 17 17 g PO DAILY #510 grams 10/14/24 gram/dose oral powder (Miralax) Allergies Allergy/AdvReac Type Severity Reaction Status Date / Time oxycodone [From Percocet] AdvReac Intermediate Vomiting Verified 10/14/24 02:52 prednisone AdvReac Intermediate weakness, Verified 10/14/24 02:52 facial flushing Review of Systems Review of Systems Yes all other systems are reviewed and are negative PMFSH Past Medical History Medical History Postoperative hypothyroidism History of COVID-19 HTN (hypertension) Depression Hypothyroid Invasive ductal carcinoma of breast Breast nodule Headache Sinus pain Thyroid cancer Essential hypertension Hypocalcemia Hypovitaminosis D Surgical History S/P lumpectomy, left breast Hx of endoscopy History of colonoscopy History of breast biopsy History of section History of thyroidectomy Family History Family History Father Diabetes Stroke Prostate cancer Mother Diabetes Maternal Grandmother Medical history unknown Family/Other Breast cancer Social History Social History Housing: Apartment Are you a primary personal care aide to a significant other at home: No Do you presently have visiting nurse or other home services: No Alcohol intake: former Patient Tobacco Use Status: Never used Tobacco e-Cigarette/Vaping Use: Never Used Second Hand Smoke Exposure: No Advance Directives: No Do you have a plan to hurt others: No Plan service: No Current occupational status: unemployed Current occupational exposures/hazards: No Cognitive needs: No Hearing needs: No Vision needs: No Physical Exam ED Vital Signs: Vital Signs - 24 hr 10/14/24 07:04 Temperature 97.0 F Pulse Rate 98 Respiratory Rate 16 Blood Pressure 137/80 Pulse Oximetry 96 Oxygen Delivery Method Room Air BMI result Body Mass Index 24.2 Appearance: Alert. Oriented X3. No acute distress. Eyes: No pallor or icterus ENT: Pharynx normal. Oral Mucosa moist Neck: Normal inspection. Neck supple. CVS: Normal heart rate and rhythm. Pulses normal. Respiratory: No respiratory distress. Equal air entry bilateral, no wheezing/rales/rhonchi Abdomen: Soft and deep tenderness left lower quad Bowel sounds are present, no mass palpable, no CVA tenderness Skin: Skin warm and dry. Normal skin color. Normal skin turgor. Extremities: No lower extremity edema. No calf tenderness Neuro: Oriented X 3. No motor deficit. No sensory deficit.No cerebellar signs , cranial nerves II-XII intact Medical Decision Making Medical Decision Making MDM Narrative: Patient's lower abdominal pain with history of constipation CT scan negative for diverticulitis labs are stable discharge patient home advised to take stool softener likely the constipation as the cause for the pain Differential Diagnosis Differential Diagnoses: The differential diagnosis associated with the presentation includes Diverticulitis/hernia/UTI/kidney stone/constipation Lab Data [facility] Lab Attestation statement: I reviewed the patient's lab results. 10/14/24 03:26 10/14/24 03:26 Labs: Lab Results 10/14/24 10/14/24 10/14/24 Range/Units 03:25 03:26 06:11 WBC 6.3 (4.8-10.8) X10*3/uL RBC 3.92 L (4.20-5.50) X10*6/uL Hgb 12.4 (12.0-16.0) g/dl Hct 36.2 L (37.0-47.0) % MCV 92.3 (80.0-98.0) fL MCH 31.6 (27.0-33.0) pg MCHC 34.3 (31.0-35.0) g/dl RDW 12.1 (11.0-16.0) % Plt Count 186 (160-400) X10*3/uL MPV 11.8 (9.4-12.3) fL Immature Gran % (Auto) 0.3 (0.0-0.4) % Neut % (Auto) 47.6 (45-73) % Lymph % (Auto) 33.1 (20-40) % [place] % (Auto) 16.6 H (2-11) % Eos % (Auto) 1.9 (0-4) % Baso % (Auto) 0.5 (0-2) % Lymph # (Auto) 2.1 (1.2-4.9) X10*3/uL [place] # (Auto) 1.0 (0.1-1.2) X10*3/uL Eos # (Auto) 0.1 (0.0-0.4) X10*3/uL Baso # (Auto) 0.0 (0.0-0.2) X10*3/uL Abs Immat Gran (auto) 0.02 (0.00-0.03) X10*3/uL Absolute Neuts (auto) 3.0 (2.0-8.3) x10*3/uL Absolute Nucleated RBC 0.000 (0.0-0.012) X10*3/uL Nucleated RBC % (auto) 0.0 (0.0-0.2) /100WBC Sodium 142 (135-145) mmol/L Potassium 3.4 (3.3-5.1) mmol/L Chloride 103 (96-108) mmol/L Carbon Dioxide 29 (22-29) mmol/L Anion Gap 13 (12-20) BUN 25 H (9-16) mg/dL Creatinine 0.91 (0.5-1.4) mg/dL Estim Creat Clear Calc 48.0 Estimated GFR > 60 Random Glucose 121 H (60-115) mg/dL Calcium 8.7 D (8.4-10.2) mg/dL Total Bilirubin 0.5 (0.0-1.0) mg/dL AST 19 (5-31) U/L ALT 11 (0-31) U/L Alkaline Phosphatase 51 (39-117) U/L Total Protein 7.1 (6.5-8.0) g/dL Albumin 4.0 (3.5-5.0) g/dL Lipase 28 (8-78) U/L Urine Color Yellow Urine Appearance Clear Urine pH 7.0 (5.0-9.0) Ur Specific [place] 1.015 (1.005-1.025) Urine Protein Negative (Neg-Trace) mg/dL Urine Glucose (UA) Negative (Negative) mg/dL Urine Ketones Negative (Negative) mg/dL Urine Blood Negative (Negative) Urine Nitrite Negative (Negative) Ur Leukocyte Esterase Moderate (2+) H (Negative) Urine RBC 0-2 (0-2) /HPF Urine WBC 0-5 (0-5) /HPF Ur Squamous Epith Cells 0-2 (0-2) /HPF Urine Bacteria None Seen (None Seen) Hyaline Casts 0-2 (0-2) /LPF COVID-19 (JOVITA) Negative (Negative) COVID-19 Clin Com See Note Influenza Type A (NORM) Negative (Negative) Influenza Type B (NORM) Negative (Negative) Influenza A & B Note See Note Independent Interpretation I performed an independent interpretation of an: CT Scan Radiology Impression Discussion of test interpretation with radiology: I have reviewed the radiologist's reading. Radiologist Impression: [place] [id number] CT Scan Report Signed Patient: Carrington Queen MR#: [id number] : 1960 Acct:[id number] Age/Sex: 64 / F ADM Date: 10/14/24 Loc: .ED Attending Dr: Ordering Physician: Guru Gaitan MD Date of Service: 10/14/24 Procedure(s): CT abdomen pelvis wo IV con Accession Number(s): [id number] cc: Brianna Navarrete MD; Guru Gaitan MD~ EXAMINATION: CT ABDOMEN AND PELVIS WITHOUT CONTRAST CLINICAL INFORMATION: Abdominal pain. COMPARISON: September 02, 2023 TECHNIQUE: Multidetector volumetric imaging was performed from the superior aspect of the liver through the pubic symphysis. Sagittal and coronal reformatted images were obtained on the technologist's workstation. This CT examination was performed using dose optimization techniques as appropriate, variously including the following: *Automated exposure control *Adjustment of mA and/or kV according to patient size (this includes techniques or standardized protocols for targeted exams where dose is matched to indication/reason for exam; i.e. extremities or head) *Use of iterative reconstruction technique DLP: 391 mGy-cm FINDINGS: LUNG BASES: There is scarring at both lung bases. LIVER, GALLBLADDER, AND BILIARY TREE: The liver is normal in size, shape, and attenuation. No focal hepatic lesion or biliary ductal dilatation is present. The gallbladder is unremarkable with no evidence of radiopaque gallstones, gallbladder wall thickening, or obvious pericholecystic inflammatory changes. PANCREAS: Unremarkable. SPLEEN: Unremarkable. ADRENAL GLANDS: Unremarkable. KIDNEYS AND URETERS: The kidneys are normal in size, shape, and attenuation. No hydronephrosis, hydroureter, or calculi seen. No perinephric stranding. BLADDER: Unremarkable. GASTROINTESTINAL TRACT: There is retained stool throughout the colon. The appendix is not identified. ABDOMINAL WALL: No significant hernia is appreciated. LYMPH NODES: Normal. VASCULAR: There is mild atherosclerotic plaque of the abdominal aorta. PELVIC VISCERA: The uterus is enlarged and lobular with myometrial masses measuring up to 4.7 cm. OSSEOUS STRUCTURES: Unremarkable. CT/CT abdomen pelvis wo IV con IMPRESSION: 1. No acute abnormality. 2. Uterine fibroids. 3. Retained stool throughout. Fleischner guidelines were followed. Electronically signed by: Og Arreola MD 10/14/2024 06:37 AM [facility] Dictated By: Og Arreola MD Signed By: <Electronically signed by Og Arreola MD in [place]> Medications Administered Discontinued Medications Generic Name Dose Route Start Last Admin Trade Name Sergioq PRN Reason Stop Dose Admin Magnesium Hydroxide 30 ml 10/14/24 05:08 10/14/24 06:11 Milk Of Magnesia 30 Ml Oral.Susp PO 10/14/24 05:09 Not Given ONCE ONE Discharge Plan Discharge Clinical Impression: Constipation Patient Disposition: Home, Self-Care Instructions: Constipation (ED) Additional Instructions: Drink plenty of fluids Take stool softener daily Follow with your PCP as needed Prescriptions: New polyethylene glycol 3350 [Miralax] 17 gram/dose powder 17 g PO DAILY Qty: 510 0RF No Action alprazolam 0.5 mg tablet 1 mg PO DAILY 1 Days Qty: 2 0RF Rx Instructions: Take 30 to 45 minutes before MRI. lorazepam 0.5 mg tablet 1 mg PO DAILY PRN (Reason: anxiety) 2 Days Qty: 4 0RF Rx Instructions: Take 45 minutes before flying calcitriol 0.25 mcg capsule 0.25 mcg PO TID 90 Days Qty: 270 3RF levothyroxine 100 mcg tablet 100 mcg PO DAILY 90 Days Qty: 90 1RF (DME) bedside assist rail See Rx Instructions .Route .MEDSUPPLY Qty: 1 0RF Rx Instructions: As directed (DME) chrome bar 24 See Rx Instructions .Route .MEDSUPPLY Qty: 1 0RF Rx Instructions: As directed (DME) chrome bar 18 See Rx Instructions .Route .MEDSUPPLY Qty: 1 0RF Rx Instructions: As directed (DME) hinged bolt down toilet seat riser See Rx Instructions .Route .MEDSUPPLY Qty: 1 0RF Rx Instructions: As directed (DME) Grabber Misc See Rx Instructions .Route Qty: 1 0RF Rx Instructions: As directed hydrochlorothiazide 25 mg tablet 25 mg PO DAILY 90 Days Qty: 90 1RF letrozole 2.5 mg tablet 1 tab PO DAILY cyclobenzaprine 10 mg tablet 10 mg PO BEDTIME PRN (Reason: muscle spasm) Qty: 7 0RF ibuprofen 600 mg tablet 600 mg PO Q6H PRN (Reason: Pain) hydroxyzine pamoate 25 mg capsule 25 mg PO ONCE Qty: 1 0RF Rx Instructions: prior to MRI ullshuvjjb-kzkekayxaglxc-dmyu [Fioricet] 50-300-40 mg capsule 1 cap PO Q8H PRN (Reason: headache) Qty: 6 0RF sumatriptan succinate 25 mg tablet 25 mg PO Q2-4H PRN (Reason: migraine headache) 30 Days Qty: 9 0RF Rx Instructions: do not exceed 8 doses per 24 hrs buspirone 5 mg tablet 5 mg PO BID citalopram 20 mg tablet 20 mg PO DAILY Senna Plus 8.6-50 mg capsule 1 tab-cap PO BEDTIME 60 Days Qty: 60 2RF bisacodyl [Dulcolax (bisacodyl)] 5 mg tablet,delayed release (DR/EC) 10 mg PO ONCE 3 Days Qty: 6 0RF Rx Instructions: Take 2 tablets at 12 pm daily starting 3 days before colonoscopy appointment polyethylene glycol 3350 [Miralax] 17 gram/dose powder 17 g PO DAILY 1 Days Qty: 238 0RF Rx Instructions: Mix Miralax with 64 oz(8 cups) of Crystal light. Take 2 tablets of Dulcolax qt 12 pm. Wait to have your 1st bowel movement, then begin drinking Miralax. Drink a glass of Miralax every 10-15 minutes until you are finished. You will drink at least another 4 cups of clear liquid of your choice over the next 2 hours. Please drink as many clear liquids as possible You may have clear liquids up to four hours before your procedure cephalexin 500 mg capsule 500 mg PO BID Qty: 14 0RF Interventions: ED Discharge Assessment Last Done: 10/14/24 07:04 Discharge Date/Time: 10/14/24 07:05 Print Language: Mozambican
[2024-10-14 06:18] LABS: Appearance Urine Clear; Color Urine Yellow; Glucose Urine UA Negative (Negative); Leukocyte Esterase Urine Moderate (2+) (Negative); Nitrite Urine Negative (Negative); Specific Gravity - Urine 1.015 (1.005-1.025); UMIC TRIGGER UACC YES; Urine Blood Negative (Negative); Urine Ketones Negative (Negative); Urine Protein Negative (Neg-Trace)
[2024-10-14 06:29] LABS: Bacteria Urine None Seen (None Seen); Hyaline Casts Urine 0-2 /LPF (0-2); RBC Urine 0-2 /HPF (0-2); Squamous Epithelial Cell Urine 0-2 /HPF (0-2); UACC Culture Trigger YES; WBC Urine 0-5 /HPF (0-5)
[2024-10-14 07:04] VITALS: BP 137/80; PULSE 98; RESP 16; TEMP 36.1; O2SAT 96
== END 2024-10-14 07:05 | disposition home or self-care (01) ==
PROVIDERS: Emergency Provider Internal Medicine; PCP Internal Medicine
DX: K59.00 Constipation, unspecified (principal); R10.30 Lower abdominal pain, unspecified; R10.2 Pelvic and perineal pain; R09.81 Nasal congestion; R05.9 Cough, unspecified; Z79.899 Other long term (current) drug therapy; Z11.52 Encounter for screening for COVID-19
CPT/HCPCS: 74176; 80053; 81001; 83690; 85025; 87086; 87502; 87635; 99282; 99284

== ENCOUNTER 2024-10-15 12:59 | Outpatient (AMB) | payer OTHER, SELFPAY ==
--- NOTE | 2024-10-15 13:25 | A.OFFPC_ITS ---
Vital Signs 10/15/24 13:29 Height 5 ft 2 in Weight 130 lb BMI 23.8 BP 122/72 Blood Pressure Location Lt brachial Position Sitting Intake Visit Reasons: 6 Month F/U Intake Note: Patient here for a 6 month follow up Family Dinner Service Specialist Required: No Accompanied by: Self / Same As Patient Allergies oxycodone [From Percocet] Adverse Reaction (Intermediate, Verified 10/15/24 13:49) Vomiting prednisone Adverse Reaction (Intermediate, Verified 10/15/24 13:49) weakness, facial flushing Medication List - Last Reconciled 10/15/24 by Brianna Cruz MD alprazolam 1 mg (2 x 0.5 mg) PO DAILY 1 day [bedside assist rail As directed] bisacodyl (Dulcolax (bisacodyl)) 10 mg (2 x 5 mg) PO ONCE 3 days buspirone 5 mg PO BID brfkneflnx-kwxuunyaonizw-szwi 50-300-40 mg (Fioricet) 1 cap PO Q8H PRN calcitriol 0.25 mcg PO TID 90 days [chrome bar As directed] [chrome bar As directed] citalopram 20 mg PO DAILY cyclobenzaprine 10 mg PO BEDTIME PRN Grabber As directed [hinged bolt down toilet seat riser As directed] hydrochlorothiazide 25 mg PO DAILY 90 days hydroxyzine pamoate 25 mg PO ONCE ibuprofen 600 mg PO Q6H PRN letrozole 1 tab PO DAILY levothyroxine 100 mcg PO DAILY 90 days lorazepam 1 mg (2 x 0.5 mg) PO DAILY PRN 2 days polyethylene glycol 3350 (Miralax) 17 grams PO DAILY sennosides-docusate sodium 8.6-50 mg (Senna Plus) 1 tab-cap PO BEDTIME 2 months sumatriptan succinate 25 mg PO Q2-4H PRN 30 days Tobacco use date assessed: 09/20/24 Fall risk assessment: No Falls in past year Last assessed Fall Risk: 10/15/24 Dental Screening Dental Screen Date: 10/15/24 Did you have a dental visit in the last 12 months?: Yes Did you have a dental problem in the last 6 months where you did not have access to dental care?: No Was dental information given to patient?: Patient has dentist HPI HPI Comments History of Present Illness Details The patient is a 64-year-old female with hypothyroidism, hypertension and history of breast cancer presents with constipation and an enlarged uterus and a myometrial mass. The concern was identified during an emergency room visit where an abdominal CT scan was performed, revealing uterine enlargement and a mass within the myometrium measuring 4.7 cm. No immediate danger was communicated to the patient, but follow-up with a impregnating helper is advised. She last saw a impregnating helper in June and is scheduled for a yearly follow-up. The patient also expresses concern regarding ongoing breast cancer treatment, specifically with letrozole, and plans to discuss this with her physician during an upcoming appointment coinciding with a scheduled mammogram. Hypothyroidism is follow by Endocrinology in [place]. Blood pressure has been within goal with hydrochlorothiazide. Breast cancer diagnosed in 2020 and is follow by hematology/oncology in [place]. For her constipation, a high fiber diet was advised. [facility] Medical History (Updated 10/15/24 @ 16:34 by Brianna Cruz MD) Postoperative hypothyroidism History of COVID-19 HTN (hypertension) Depression Hypothyroid Invasive ductal carcinoma of breast Breast nodule Headache Sinus pain Thyroid cancer Essential hypertension Hypocalcemia Hypovitaminosis D Surgical History S/P lumpectomy, left breast Hx of endoscopy History of colonoscopy History of breast biopsy History of section History of thyroidectomy Family History Father Diabetes Stroke Prostate cancer Mother Diabetes Maternal Grandmother Medical history unknown Family/Other Breast cancer Social History Housing: Apartment Are you a primary team primary care physician to a significant other at home: No Do you presently have visiting nurse or other home services: No Alcohol intake: former Patient Tobacco Use Status: Never used Tobacco e-Cigarette/Vaping Use: Never Used Second Hand Smoke Exposure: No service: No Current occupational status: unemployed Current occupational exposures/hazards: No Cognitive needs: No Hearing needs: No Vision needs: No Female Reproductive History Menstrual Age of Menarche: 7 Questionnaire Thrive Questionnaire Date Thrive assessed: 07/03/24 CHARI-7 AMB Questionnaire CHARI-7 Date CHARI - 7 assessed: 07/03/24 Source: Developed by Drs. Quintin Ugalde, Shayla Vidales, Kristian Armenta and colleagues, with an educational linda from [employer]. Review of Systems Const All systems reviewed & are unremarkable except as noted in HPI and below Card Denies chest pain at rest, Denies chest pain with activity, Denies edema, Denies irregular heart rhythm, Denies claudication, Denies dyspnea, Denies dyspnea on exertion, Denies orthopnea, Denies paroxysmal nocturnal dyspnea and Denies slow heart rate Resp Denies cough, Denies dyspnea and Denies dyspnea on exertion GI Denies abdominal pain, Denies change in bowel habits, Reports constipation, Denies excessive flatus, Denies nausea and Denies vomiting Neuro Denies behavioral changes and Denies lack of coordination Psych Denies behavioral changes Physical exam (Primary Care) Vital Signs: Last Vital Signs BP 122/72 10/15/24 13:29 BMI result Body Mass Index 23.8 Tobacco/Smoking Status: Tobacco use Status Tobacco use date assessed 09/20/24 10/15/24 13:31 Patient Tobacco Use Status Never used Tobacco 10/15/24 13:31 e-Cigarette/Vaping Use Never Used 10/15/24 13:31 Thrive Assessment: Date of Thrive Assessment Date Thrive assessed 07/03/24 10/15/24 13:31 Resp Effort & Inspection: normal respiratory effort Auscultation: clear to auscultation bilaterally Cardio Jugular venous distension: no JVD Rate: regular rate Rhythm: regular rhythm Heart sounds: S1 normal heart sound present and S2 normal heart sound present GI Inspection: Yes normal to inspection Palpation (GI): Soft to palpation and nontender Auscultation: normal bowel sounds Extrem General: Yes full ROM Office Procedures Flu Questionnaire Does the patient have a severe egg allergy?: No Immunizations Fluarix Triv [id number] (PF) 45 mcg (15 mcg x 3)/0.5 mL IM syringe Performing Provider: Brianna Cruz MD [facility] [place] [facility] Documented (not given) by: JOI Lugo on 10/15/24 13:32 Reason Not Given: Patient Refused Coding Level of Care Code Est Pt Level 4 (47522) Complex EM visit Add On G2211 Diagnoses Postoperative hypothyroidism E89.0 Infiltrating ductal carcinoma of left breast C50.912 Laterality: left Essential hypertension I10 Chronic idiopathic constipation K59.04 Time Spent (min) 22 Assessment & Plan Assessment & Plan (1) Postoperative hypothyroidism: Code(s): E89.0 - Postprocedural hypothyroidism Category: Medical (2) Invasive ductal carcinoma of breast: Code(s): C50.919 - Malignant neoplasm of unspecified site of unspecified female breast Category: Medical Qualifiers: Laterality: left Qualified Code(s): C50.912 - Malignant neoplasm of unspecified site of left female breast (3) Essential hypertension: Code(s): I10 - Essential (primary) hypertension Category: Medical (4) Chronic idiopathic constipation: Code(s): K59.04 - Chronic idiopathic constipation Category: Medical Plan - Enlarged Uterus with Myometrial Mass: Print and provide the CT scan results to the patient for presentation to her impregnating helper for further evaluation and management. - Constipation: Continue with dietary adjustments including increased fiber intake, use of Dulcolax as prescribed, and ensure adequate hydration. - Anxiety: Maintain current prescription of Buspirone 5 mg for anxiety management. - Migraines: Continue Fioricet and Sumatriptan as needed for migraine relief. - Hypothyroidism: Continue 100 mg of levothyroxine as prescribed for thyroid hormone replacement. - Breast Cancer: Patient to discuss letrozole and ongoing mammogram and thyroid evaluations with oncology team during the next consult. - Drug Allergies: Continue to avoid Percocet and Prednisone. Patient was informed and verbally consented to the use of an ambient scribe for clinic note documentation during this visit. I discussed the abdominal CT findings with the patient, noting that the enlarged uterus and myometrial mass require follow-up with her impregnating helper. I reassured her that there is no immediate cause for alarm and emphasized the importance of sharing the printed CT report with her specialist. The patient will maintain her current medication regimen, including adjustments for constipation, and continue her regular breast cancer management consultations. We also talked about the importance of following a high-fiber diet while managing her hydration levels properly. Future appointments are set for mammography and thyroid evaluation, and the patient has acknowledged the importance of continuing her current therapeutic directives. Orders: Orders Influenza [id number] Immunization Today Z23 - Encounter for immunization Patient Instructions: - Obtain the printed CT scan report and present it to your impregnating helper at the next visit. - Continue with prescribed medications and follow any dosing instructions. - Adjust diet to increase fiber with foods like plums, bananas, and oats. - Stay well-hydrated and maintain current dietary modifications to manage constipation. - Discuss with your oncologist the ongoing plan for letrozole and any need for medication adjustments.
[2024-10-15 13:29] VITALS: BP 122/72; BMI 23.8
== END 2024-10-15 14:03 | disposition home or self-care (01) ==
PROVIDERS: PCP Internal Medicine; Visit Provider Internal Medicine
DX: E89.0 Postprocedural hypothyroidism (principal); C50.912 Malignant neoplasm of unspecified site of left female breast; I10 Essential (primary) hypertension; K59.04 Chronic idiopathic constipation; Z23 Encounter for immunization

== ENCOUNTER → 2024-10-15 12:59 | Outpatient (BNVA) | payer OTHER, SELFPAY | PROVIDERS: PCP Internal Medicine; Visit Provider Internal Medicine | DX: E89.0 Postprocedural hypothyroidism (principal); I10 Essential (primary) hypertension; K59.04 Chronic idiopathic constipation; C50.912 Malignant neoplasm of unspecified site of left female breast | CPT/HCPCS: 90471; 99212 ==

== ENCOUNTER 2025-04-16 08:41 | Outpatient (REF) | payer OTHER, SELFPAY ==
--- NOTE | ~2025-04-16 | XR_ITS ---
EXAMINATION: XR CHEST 2 VIEWS HISTORY: R05.9 - Cough, unspecified COMPARISON: Comparison is made with the prior examination dated 10/11/2022. FINDINGS: PA and lateral views of the chest are submitted. The lungs are expanded and clear. There is no pleural effusion, pneumothorax, or pulmonary vascular congestion. The heart is normal in size. There is mild degenerative disc disease of the spine. There are surgical clips in the left axilla. XR/XR chest 2V IMPRESSION: No acute cardiopulmonary abnormality. Electronically signed by: Quintin Sampson MD 04/16/2025 09:44 AM EDT
[2025-04-16 10:28] LABS: Alanine Aminotransferase 80 U/L (0-31); Albumin Level 4.6 g/dL (3.5-5.0); Alkaline Phosphatase 52 U/L (39-117); Anion Gap 11 (12-20); Aspartate Amino Transferase 40 U/L (5-31); Bilirubin Total 0.7 mg/dL (0.0-1.0); Blood Urea Nitrogen 25 mg/dL (9-16); Calcium 8.9 mg/dL (8.4-10.2); Carbon Dioxide 31 mmol/L (22-29); Chloride 105 mmol/L (96-108); Cholesterol 219 mg/dL (<200); Estimated Glomerular Filt Rate 53; Glucose Fasting 94 mg/dL (60-99); HDL Cholesterol 63 mg/dL (>40); LDL Cholesterol Calculated 141 mg/dL (<100); Potassium 4.3 mmol/L (3.3-5.1); Sodium 143 mmol/L (135-145); Total Protein 7.6 g/dL (6.5-8.0); Triglycerides 77 mg/dL (<150)
== END 2025-04-16 08:42 | disposition home or self-care (01) ==
LOC: HO.XRAY 08:41
PROVIDERS: PCP Internal Medicine; Visit Provider Internal Medicine
DX: Z00.01 Encounter for general adult medical examination with abnormal findings (principal); R05.9 Cough, unspecified; F32.0 Major depressive disorder, single episode, mild; C50.912 Malignant neoplasm of unspecified site of left female breast; C73 Malignant neoplasm of thyroid gland
CPT/HCPCS: 36415; 71046; 80053; 80061; 96127; 99212; 99397

== ENCOUNTER 2025-04-16 08:41 | Outpatient (AMB) | payer OTHER, SELFPAY ==
--- NOTE | 2025-04-16 08:44 | A.OFFPC_ITS ---
Vital Signs 04/16/25 08:46 Height 5 ft 2 in Weight 135 lb 2 oz BMI 24.7 BP 142/84 H Blood Pressure Location Lt brachial Position Sitting Pulse 64 Pulse Source Pulse Oximeter Temp 96.8 F Temp Source Temporal Artery Scan Pulse Oximetry (%) 98 Oxygen Delivery Method Room Air Intake Visit Reasons: Annual exam Intake Note: Patient is here today for a physical. Automatic Fancy Machine Operator Required: No Lithographic Press Operator Apprentice: Not Required per policy Accompanied by: Self / Same As Patient Allergies oxycodone [From Percocet] Adverse Reaction (Intermediate, Verified 04/16/25 08:55) Vomiting prednisone Adverse Reaction (Intermediate, Verified 04/16/25 08:55) weakness, facial flushing Medication List - Last Reconciled 04/16/25 by Brianan Cruz MD alprazolam 1 mg (2 x 0.5 mg) PO DAILY 1 day [bedside assist rail As directed] bisacodyl (Dulcolax (bisacodyl)) 10 mg (2 x 5 mg) PO ONCE 3 days buspirone 5 mg PO BID tgxandwflq-srgspwarqwpru-exde 50-300-40 mg (Fioricet) 1 cap PO Q8H PRN calcitriol 0.25 mcg PO TID 90 days [chrome bar As directed] [chrome bar As directed] citalopram 20 mg PO DAILY cyclobenzaprine 10 mg PO BEDTIME PRN Grabber As directed [hinged bolt down toilet seat riser As directed] hydrochlorothiazide 25 mg PO DAILY 90 days hydroxyzine pamoate 25 mg PO ONCE ibuprofen 600 mg PO Q6H PRN letrozole 1 tab PO DAILY levothyroxine 100 mcg PO DAILY 90 days lorazepam 1 mg (2 x 0.5 mg) PO DAILY PRN 2 days polyethylene glycol 3350 (Miralax) 17 grams PO DAILY sennosides-docusate sodium 8.6-50 mg (Senna Plus) 1 tab-cap PO BEDTIME 2 months sumatriptan succinate 25 mg PO Q2-4H PRN 30 days Tobacco use date assessed: 04/16/25 Fall risk assessment: No Falls in past year Last assessed Fall Risk: 04/16/25 Dental Screening Dental Screen Date: 04/16/25 Did you have a dental visit in the last 12 months?: Yes Did you have a dental problem in the last 6 months where you did not have access to dental care?: No Was dental information given to patient?: Patient has dentist HPI HPI Comments History of Present Illness Details The patient is a 64-year-old female presenting for an annual physical examination. Her significant medical history includes breast cancer diagnosed in December 2020, which was both estrogen and progesterone receptor positive and HER2 negative. The patient underwent a lumpectomy soon after her diagnosis. She also has a history of thyroid cancer, treated with sequential thyroidectomies in 2004 and 2007, initially without levothyroxine therapy. The patient mentions a history of hypertension, managed with hydrochlorothiazide, and notes her allergic reactions to Percocet and prednisone. Mild major depression in remission with medications. Complains of a dry cough that has been present for over 2 weeks after she went to [place]. In regards to her family history, her father had diabetes and prostate cancer while her mother also had diabetes. Her niece's from breast cancer adds to her familial cancer history. The patient continues with regular preventive screenings, including a mammogram from October that showed no abnormalities and a normal Pap smear from June. While she receives regular health maintenance, she remains apprehensive about receiving vaccines and has declined pneumococcal and Tdap vaccines at this visit. - Mammography: Last performed in [facility], results were normal. - Pap Smear: Last conducted in June, o utcome was normal. - Colonoscopy referral to [facility] as not followed up due to lack of contact; new referral planned. - Patient declined COVID-19, pneumonia, and Tdap vaccinations. - Endoscopy procedure noted. [facility] Medical History (Updated 04/16/25 @ 09:12 by Brianna Cruz MD) Postoperative hypothyroidism History of COVID-19 HTN (hypertension) Depression Hypothyroid Invasive ductal carcinoma of breast Breast nodule Headache Sinus pain Thyroid cancer Essential hypertension Hypocalcemia Hypovitaminosis D Surgical History S/P lumpectomy, left breast Hx of endoscopy History of colonoscopy History of breast biopsy History of section History of thyroidectomy Family History Father Diabetes Stroke Prostate cancer Mother Diabetes Maternal Grandmother Medical history unknown Family/Other Breast cancer Social History Housing: Apartment Are you a primary wound care center consultant to a significant other at home: No Do you presently have visiting nurse or other home services: No Alcohol intake: former Patient Tobacco Use Status: Never used Tobacco e-Cigarette/Vaping Use: Never Used Second Hand Smoke Exposure: No service: No Current occupational status: unemployed Current occupational exposures/hazards: No Cognitive needs: No Hearing needs: No Vision needs: No Female Reproductive History Menstrual Age of Menarche: 7 Questionnaire PHQ-9 Over the last 2 weeks, how often have you been bothered by any of the following problems? 1. Little interest or pleasure in doing things: not at all 2. Feeling down, depressed, or hopeless: not at all 3. Trouble falling or staying asleep, or sleeping too much: not at all 4. Feeling tired or having little energy: not at all 5. Poor appetite or overeating: not at all 6. Feeling bad about yourself - or that you are a failure or have let yourself or your family down: not at all 7. Trouble concentrating on things, such as reading the newspaper or watching television: not at all 8. Moving or speaking so slowly that other people could have noticed. Or the opposite - being so fidgety or restless that you have been moving around a lot more than usual: not at all 9. Thoughts that you would be better off or of hurting yourself in some way: not at all Total score: 0 Depression Screening Interpretation: Negative Depression Screening Done: Yes 15848 - PHQ-9 Billing: Yes Source: Developed by Drs. Quintin Ugalde, Shayla Vidales, Kristian Armenta and colleagues, with an educational linda from [employer]. Thrive Questionnaire Date Thrive assessed: 04/16/25 I am a: Patient What is your living situation today?: I have a steady place to live Within the past 12 months, did the food you bought not last and you didn't have the money to get more?: Never true Within the past 12 months, did you worry whether your food would run out before you got money to buy more?: Never true Do you have trouble paying for medicines?: I choose not to answer this question Do you have trouble getting transportation to medical appointments?: No Do you have trouble paying your heating and electricity bill?: No Do you have trouble taking care of your child, family member or friend?: No Do you have trouble with day-to-day activities such as bathing, preparing meals, shopping, managing finances, etc.?: Yes Are you currently unemployed and looking for a job?: Yes Are you interested in more education?: No Please select the resources that you would like help with: None Currently or been in a relationship where the following occur: No concerns reported THRIVE Score: 0 AUDIT C Alcohol Use Questionnaire (AUDIT-C) 1. How often do you have a drink containing alcohol?: Never Total Score: 0 Score Reviewed/Action Taken: No CHARI-7 AMB Questionnaire HCARI-7 Date CHARI - 7 assessed: 04/16/25 Feeling nervous, anxious, or on edge: 1 = Several days Not being able to stop or control worryin = Several days Worrying too much about different things: 1 = Several days Trouble relaxin = Several days Being so restless that it is hard to sit still: 1 = Several days Becoming easily annoyed or irritable: 0 = Not at all Feeling afraid as if something awful might happen: 1 = Several days Total CHARI-7 score (0-4 normal; 5-9 mild; 10-14 moderate; 15-21 severe): 6 Source: Developed by Drs. Quintin Ugalde, Shayla Vidales, Kristian Armenta and colleagues, with an educational linda from [employer]. CHARI-7 Assessment Billing CHARI-7 Assessment Tool: CHARI-7 Assessment 08063 Review of Systems Const All systems reviewed & are unremarkable except as noted in HPI and below Card Denies chest pain at rest, Denies chest pain with activity, Denies edema, Denies irregular heart rhythm, Denies claudication, Denies dyspnea, Denies dyspnea on exertion, Denies orthopnea, Denies paroxysmal nocturnal dyspnea and Denies slow heart rate Resp Denies cough, Denies dyspnea and Denies dyspnea on exertion GI Denies abdominal pain, Denies change in bowel habits, Denies excessive flatus, Denies nausea and Denies vomiting Denies urinary incontinence, Denies urinary hesitancy and Denies urinary urgency Musc Denies abnormal gait, Denies atrophy, Denies deformity and Denies limited range of motion Skin/Breast Denies bleeding lesions, Denies changing lesions and Denies rash Neuro Denies abnormal gait and Denies lack of coordination Physical exam (Primary Care) Vital Signs: Last Vital Signs Temp 96.8 F 04/16/25 08:46 Pulse 64 04/16/25 08:46 BP 142/84 H 04/16/25 08:46 Pulse Ox 98 04/16/25 08:46 Oxygen Delivery Method Room Air 04/16/25 08:46 BMI result Body Mass Index 24.7 Tobacco/Smoking Status: Tobacco use Status Tobacco use date assessed 04/16/25 04/16/25 08:49 Patient Tobacco Use Status Never used Tobacco 04/16/25 08:49 e-Cigarette/Vaping Use Never Used 04/16/25 08:49 PHQ-9: PHQ-9 Score PHQ-9: Total score 0 04/16/25 08:49 Depression Screening Interpretation: Negative Thrive Assessment: Date of Thrive Assessment Date Thrive assessed 04/16/25 04/16/25 08:49 Currently or been in a relationship where the following occur: No concerns reported [facility] Head: Yes normal to inspection, Yes normocephalic and Yes atraumatic Ears: external ears normal Eyes General: appearance normal, both eyes and all related structures Eyelids: Yes eyelids normal Conjunctivae: conjunctivae normal Neck Neck: Yes normal visual inspection and Yes supple Resp Effort & Inspection: normal respiratory effort Auscultation: clear to auscultation bilaterally Cardio Jugular venous distension: no JVD Rate: regular rate Rhythm: regular rhythm Heart sounds: S1 normal heart sound present and S2 normal heart sound present GI Inspection: Yes normal to inspection Palpation (GI): Soft to palpation and nontender Auscultation: normal bowel sounds Skin General skin exam: no rashes or lesions noted Neuro General: no focal motor deficits Extrem General: Yes full ROM Psych Appearance: grossly normal Coding Level of Care Code Est Pt Level 3 (20827) Est Pt Prev Care >65y(13260) Diagnoses Physical exam Z00.00 Mild major depression F32.0 Cough R05.9 Infiltrating ductal carcinoma of left breast C50.912 Laterality: left Thyroid cancer C73 Additional Codes PHQ-9 - 39140 - PHQ-9 Billing: Yes ([id number]) CHARI-7 Assessment Billing - CHARI-7 Assessment Tool: CHARI-7 Assessment 57553 ([id number]) Time Spent (min) 33 Assessment & Plan Assessment & Plan (1) Physical exam: Code(s): Z00.00 - Encounter for general adult medical examination without abnormal findings Category: Medical (2) Mild major depression: Code(s): F32.0 - Major depressive disorder, single episode, mild Category: Medical (3) Cough: Code(s): R05.9 - Cough, unspecified Category: Medical (4) Invasive ductal carcinoma of breast: Code(s): C50.919 - Malignant neoplasm of unspecified site of unspecified female breast Category: Medical Qualifiers: Laterality: left Qualified Code(s): C50.912 - Malignant neoplasm of un specified site of left female breast (5) Thyroid cancer: Code(s): C73 - Malignant neoplasm of thyroid gland Category: Medical Plan The patient's breast cancer management continues with appropriate mammograms, with the last one in October being normal. Thyroid function remains under the examination, with endocrinological follow-up in [place] and levothyroxine used for replacement. Hypertension managed with hydrochlorothiazide 25 mg shows periodic elevation attributed to white coat syndrome. Referrals needed re- arrangement for her colonoscopy due to the previous lapse. My approach involves ongoing attention to potential imaging needs while reaffirming her reluctance against vaccinations, notably COVID-19, pneumonia, and Tdap, assessing her concerns around these preventive measures. Monitoring any symptoms of discomfort in abdominal assessments is considered. Patient was informed and verbally consented to the use of an ambient scribe for clinic note documentation during this visit. In today's consultation, we discussed the patient's recent medical history and ongoing cancer surveillance. I emphasized the importance of following up on cancer screening and the referral for a colonoscopy, especially given her thorough family cancer history. The patient's hesitancy regarding vaccinations led to an exploration of their benefits while respecting her decision to waive them for now. We reviewed her current treatment protocols, particularly for her anxiety, hypertension, and thyroid, affirming her continuity with prescribed medications. Our conversation also revisited her past thyroidectomies and outcomes, ensuring understanding of her ongoing management strategies. Orders: Orders Lipid Panel Today Z00.00 - Encounter for general adult medical examination without abnormal findings XR chest 2V Today R05.9 - Cough, unspecified Comprehensive [place]. Panel Fast Today Z00.00 - Encounter for general adult medical examination without abnormal findings Referrals Gastroenterology Referral Z12.11 - Encounter for screening for malignant neoplasm of colon Patient Instructions: - Continue regular medication regimen as prescribed. - Follow up with recommended screenings, including mammogram and Pap smear. - Schedule the colonoscopy as soon as arrangements are finalized. - Consider visiting the lab for blood work related to glucose, cholesterol, and other markers. - Maintain blood pressure logs and report any significant elevation. - Discuss any vaccination concerns during future visits. - Monitor any new symptoms or changes and report promptly.
[2025-04-16 08:46] VITALS: BP 142/84; PULSE 64; TEMP 36; O2SAT 98; BMI 24.7
--- OUTSIDE RECORDS SUMMARY | 2025-04-16 09:01 | XMS_ITS | Clinical Summary ---
Author Organization [facility] Address [address] [place] [address] Phone Care Team Providers Care Ice Cream Vault Worker Name Role Phone Brianna Cruz MD Primary Care Provider [phone] Allergies Active Allergy Reactions Criticality Noted Date Comments Latex 07/02/2024 Other 07/23/2019 Seasonal Medications HYDROCHLOROTHIA ZIDE ORAL Take by mouth. Activ e calcium citrate (CALCITRATE ORAL) Take by mouth. Activ e levothyroxine sodium (TIROSINT) 88 mcg capsule Take by mouth. Act lakeisha polyethylene glycol (Golytely) 236-22.74-6.74 -5.86 gram solution Take 4L by mouth once for one dose. May substitue any PEG. Starting at 6PM the night before your procedure drink 1 8oz glasses at your own pace until you complete half of the gallon. Finish 2nd half of the gallon 5 hours before your procedure. 4000 mL 4 Active bisacodyL (DULCOLAX) 5 mg EC tablet Take 2 tablets by mouth right before beginning bowel prep. See instructions provided by the office 2 tablet 4 Active Surgical History Surgery Date Site/Laterality Comments SECTION PROCEDURE: HISTORICAL Medical History Medical History Date Comments Hypertension DX:Hypertension Cancer of thyroid (CMS/HCC V 24, CMS/HCC V28) DX:Cancer of thyroid (HCC) Breast cancer (CMS/HCC V24, CMS/HCC V28) 11/07/2021 DX:Breast cancer (HCC); COMM ENT: left breast Family History Medical History Relation Name Comments Prostate cancer Father Heart attack Mother Breast cancer Neg Hx Colon cancer Neg Hx Ovarian cancer Neg Hx Relation Name Status Comments Father Mother Social History Tobacco Use Types Packs/Day Years Used Date Smoking Tobacco: Never Smokeless Tobacco: Never Alcohol Use Standard Drinks/Week Comments No 0 (1 standard drink = 0.6 oz pur e alcohol) Comments Unknown Sex and Gender Information Value Date Recorded Sex Assigned at Not on file Legal Sex Female 4:31 PM EST Gender Identity Not on file Sexual Orientation Not on file Obstetrics History Last Filed Vital Signs Vital Sign Reading Time Taken Comments Blood Pressure 161/83 07/02/2024 9:22 AM EDT Pulse 78 07/02/2024 9:22 AM EDT Temperature - - Respiratory Rate - - Oxygen Saturation - - Inhaled Oxygen Concentration - - Weight 59.9 kg (132 lb) 07/02/2024 9:22 AM EDT Height 157.5 cm (5' 2 ) 07/02/2024 9:22 AM EDT Body Mass Index 24.14 07/02/2024 9:22 AM EDT Plan of Treatment Health Maintenance Due Date Last Done Comments Breast Cancer Screening 1960 COVID-19 Vaccine (#1) 1963 DTaP,Tdap,and Td Vaccines (1 - Tdap) 1977 Pneumococcal Vaccine: 50+ Ye ars (1 of 1 - PCV) 2008 Zoster Vaccines (1 of 2) 2008 Colorectal Cancer Screening: Colonoscopy 10/06/2022 Depression Screening 10/06/2022 Osteoporosis Screening (Bone Density Screening) 10/06/2022 Social Influencers of Health Screening 10/06/2022 Falls Risk Assessment 2023 Influenza Vaccine (Season Ended) 2025 RSV Immunization Adult Patie nts (1 - 1-dose 75+ series) 2033 Hepatitis C Screening Completed 07/24/2019 HIB Vaccines Aged Out No longer eligi ble based on patient's age to complete this topic HPV Vaccines Aged Out No longer eligi ble based on patient's age to complete this topic Hepatitis A Vaccines Aged Out No long er eligible based on patient's age to complete this topic Hepatitis B Vaccines Aged Out No long er eligible based on patient's age to complete this topic IPV Vaccines Aged Out No longer eligi ble based on patient's age to complete this topic MMR Vaccines Aged Out No longer eligi ble based on patient's age to complete this topic Meningococcal ACWY Vaccine Aged Out N o longer eligible based on patient's age to complete this topic Meningococcal B Vaccine Aged Out No l onger eligible based on patient's age to complete this topic RSV Immunization Patients Un justine 20 months Aged Out No longer eligible b ased on patient's age to complete this topic Varicella Vaccines Aged Out No longer eligible based on patient's age to complete this topic Procedures Procedure Name Priority Date/Time Associated Diagnosis Comments HEPATITIS C SCREENING Routine 07/24/2019 from Last 3 Months or Most Recently Relevant to Health Maintenance Results * Hepatitis C Screening (07/24/2019) Hepatitis C Screening abstracted us Historical Provider HEALTH MAINTENANCE Final Result from Last 3 Months or Most Recently Relevant to Health Maintenance Insurance [place] - [place] [facility] Member Subscriber Plan / Payer (Ef fective 2024-Present) Name:Carrington Queen Relation to Subscriber:Self Name:Carrington Queen Payer ID:[id number] Group ID:[id number] Type:Not on file Address: [address] [place] [address] Care Teams Ice Cream Vault Worker Relationship Specialty Start Date End Date Brianna Cruz MD [address] [place] [address] , [address] [facility]A: [facility] JANET Stevenson PCP - General 10/03/23
== END 2025-04-16 09:12 | disposition home or self-care (01) ==
LOC: HO.HMCH 08:42
PROVIDERS: PCP Internal Medicine; Visit Provider Internal Medicine
DX: Z00.00 Encounter for general adult medical examination without abnormal findings (principal); F32.0 Major depressive disorder, single episode, mild; C73 Malignant neoplasm of thyroid gland; C50.912 Malignant neoplasm of unspecified site of left female breast; R05.9 Cough, unspecified

== ENCOUNTER → 2025-04-16 09:26 | Outpatient (BNV) | payer OTHER, SELFPAY | PROVIDERS: PCP Internal Medicine; Visit Provider Radiology Diagnostic Radiology | DX: R05.9 Cough, unspecified (principal) | CPT/HCPCS: 71046 ==

== ENCOUNTER 2025-04-25 09:28 | Outpatient (AMB) | payer OTHER, SELFPAY ==
--- NOTE | 2025-04-25 09:41 | MHC.PC.OV ---
Vital Signs 04/25/25 09:42 Height 5 ft 2 in Weight 132 lb BMI 24.1 BP 144/70 H Blood Pressure Location Lt brachial Position Sitting Intake Visit Reasons: Dizziness Mystery Shopper Required: No Accompanied by: Self / Same As Patient Allergies oxycodone (From Percocet) Adverse Reaction (Intermediate, Verified 04/25/25 10:17) Vomiting prednisone Adverse Reaction (Intermediate, Verified 04/25/25 10:17) weakness, facial flushing Medication List - Last Reconciled 04/25/25 by Brianna Cruz MD alprazolam 1 mg (2 x 0.5 mg) PO DAILY 1 day [bedside assist rail As directed] bisacodyl (Dulcolax (bisacodyl)) 10 mg (2 x 5 mg) PO ONCE 3 days buspirone 5 mg PO BID gcuglzyyxl-bfthexcrctsdc-qvyc 50-300-40 mg (Fioricet) 1 cap PO Q8H PRN calcitriol 0.25 mcg PO TID 90 days [chrome bar As directed] [chrome bar As directed] citalopram 20 mg PO DAILY cyclobenzaprine 10 mg PO BEDTIME PRN Grabber As directed [hinged bolt down toilet seat riser As directed] hydrochlorothiazide 25 mg PO DAILY 90 days hydroxyzine pamoate 25 mg PO ONCE ibuprofen 600 mg PO Q6H PRN letrozole 1 tab PO DAILY levothyroxine 100 mcg PO DAILY 90 days lorazepam 1 mg (2 x 0.5 mg) PO DAILY PRN 2 days polyethylene glycol 3350 (Miralax) 17 grams PO DAILY sennosides-docusate sodium 8.6-50 mg (Senna Plus) 1 tab-cap PO BEDTIME 2 months sumatriptan succinate 25 mg PO Q2-4H PRN 30 days Tobacco use date assessed: 04/16/25 Fall risk assessment: No Falls in past year Last assessed Fall Risk: 04/25/25 Dental Screening Dental Screen Date: 04/16/25 HPI HPI Comments History of Present Illness Details The patient is a 64-year-old female presenting with elevated liver enzymes. The liver enzymes were noted to be elevated during a recent laboratory evaluation, with AST and ALT levels slightly above the normal range. The patient denies any significant alcohol intake or use of hepatotoxic medications. The patient reports a history of constipation, which she describes as severe and persistent. She has not been using any medications for constipation and has not sought previous medical advice for this issue. The patient also experiences episodes of nausea, which she associates with certain medications, including Advil. She reports that the nausea affects her appetite and overall well-being. The patient has a history of hypercholesterolemia, which she attributes to dietary habits while living in [place]. A [place] Risk Score was calculated, indicating a 3.3% risk of cardiovascular events in the next 10 years, which is considered low. [facility] Medical History (Updated 04/25/25 @ 10:28 by Brianna Cruz MD) Postoperative hypothyroidism History of COVID-19 HTN (hypertension) Depression Hypothyroid Invasive ductal carcinoma of breast Breast nodule Headache Sinus pain Thyroid cancer Essential hypertension Hypocalcemia Hypovitaminosis D Surgical History S/P lumpectomy, left breast Hx of endoscopy History of colonoscopy History of breast biopsy History of section History of thyroidectomy Family History Father Diabetes Stroke Prostate cancer Mother Diabetes Maternal Grandmother Medical history unknown Family/Other Breast cancer Social History Housing: Apartment Are you a primary assistant child care teacher to a significant other at home: No Do you presently have visiting nurse or other home services: No Alcohol intake: former Patient Tobacco Use Status: Never used Tobacco e-Cigarette/Vaping Use: Never Used Second Hand Smoke Exposure: No service: No Current occupational status: unemployed Current occupational exposures/hazards: No Cognitive needs: No Hearing needs: No Vision needs: No Female Reproductive History Menstrual Age of Menarche: 7 Questionnaire PHQ-9 Over the last 2 weeks, how often have you been bothered by any of the following problems? 1. Little interest or pleasure in doing things: more than half the days 2. Feeling down, depressed, or hopeless: more than half the days 3. Trouble falling or staying asleep, or sleeping too much: nearly every day 4. Feeling tired or having little energy: several days 5. Poor appetite or overeating: several days 6. Feeling bad about yourself - or that you are a failure or have let yourself or your family down: several days 7. Trouble concentrating on things, such as reading the newspaper or watching television: several days 8. Moving or speaking so slowly that other people could have noticed. Or the opposite - being so fidgety or restless that you have been moving around a lot more than usual: more than half the days 9. Thoughts that you would be better off or of hurting yourself in some way: not at all Total score: 13 Depression Screening Interpretation: Positive Depression Screening Follow-up: Existing condition and Follow-up Visit Requested Depression Screening Done: Yes 25603 - PHQ-9 Billing: Yes Source: Developed by Drs. Quintin Ugalde, Shayla Vidales, Kristian Armenta and colleagues, with an educational linda from [employer] ([employer]). Thrive Questionnaire Date Thrive assessed: 04/16/25 I am a: Patient What is your living situation today?: I have a steady place to live Within the past 12 months, did the food you bought not last and you didn't have the money to get more?: Never true Within the past 12 months, did you worry whether your food would run out before you got money to buy more?: Never true Do you have trouble paying for medicines?: I choose not to answer this question Do you have trouble getting transportation to medical appointments?: No Do you have trouble paying your heating and electricity bill?: No Do you have trouble taking care of your child, family member or friend?: No Do you have trouble with day-to-day activities such as bathing, preparing meals, shopping, managing finances, etc.?: Yes Are you currently unemployed and looking for a job?: Yes Are you interested in more education?: No Please select the resources that you would like help with: None Currently or been in a relationship where the following occur: No concerns reported THRIVE Score: 0 AUDIT C Alcohol Use Questionnaire (AUDIT-C) 1. How often do you have a drink containing alcohol?: Never Total Score: 0 Score Reviewed/Action Taken: No CHARI-7 AMB Questionnaire CHARI-7 Date CHARI - 7 assessed: 04/25/25 Feeling nervous, anxious, or on edge: 3 = Nearly every day Not being able to stop or control worryin = Several days Worrying too much about different things: 1 = Several days Trouble relaxin = Several days Being so restless that it is hard to sit still: 1 = Several days Becoming easily annoyed or irritable: 1 = Several days Feeling afraid as if something awful might happen: 1 = Several days Total CHARI-7 score (0-4 normal; 5-9 mild; 10-14 moderate; 15-21 severe): 9 Source: Developed by Drs. Quintin Ugalde, Shayla Vidales, Kristian Armenta and colleagues, with an educational linda from [employer] ([employer]). CHARI-7 Assessment Billing CHARI-7 Assessment Tool: CHARI-7 Assessment 35688 Review of Systems Const All systems reviewed & are unremarkable except as noted in HPI and below Card Denies chest pain at rest, Denies chest pain with activity, Denies edema, Denies irregular heart rhythm, Denies claudication, Denies dyspnea, Denies dyspnea on exertion, Denies orthopnea, Denies paroxysmal nocturnal dyspnea and Denies slow heart rate Resp Denies cough, Denies dyspnea and Denies dyspnea on exertion GI Denies abdominal pain, Denies change in bowel habits, Denies excessive flatus, Denies nausea and Denies vomiting Denies urinary incontinence, Denies urinary hesitancy and Denies urinary urgency Musc Denies atrophy, Denies deformity and Denies limited range of motion Physical exam (Primary Care) Vital Signs: Last Vital Signs BP 144/70 H 04/25/25 09:42 BMI result Body Mass Index 24.1 Tobacco/Smoking Status: Tobacco use Status Tobacco use date assessed 04/16/25 04/25/25 09:52 Patient Tobacco Use Status Never used Tobacco 04/25/25 09:52 e-Cigarette/Vaping Use Never Used 04/25/25 09:52 PHQ-9: PHQ-9 Score PHQ-9: Total score 13 04/25/25 10:20 Depression Screening Interpretation: Positive Depression Screening Follow-up: Existing condition and Follow-up Visit Requested Thrive Assessment: Date of Thrive Assessment Date Thrive assessed 04/16/25 04/25/25 09:52 Currently or been in a relationship where the following occur: No concerns reported Resp Effort & Inspection: normal respiratory effort Auscultation: clear to auscultation bilaterally Cardio Jugular venous distension: no JVD Rate: regular rate Rhythm: regular rhythm Heart sounds: S1 normal heart sound present and S2 normal heart sound present GI Inspection: Yes normal to inspection Palpation (GI): Soft to palpation and nontender Auscultation: normal bowel sounds Extrem General: Yes full ROM Coding Level of Care Code Est Pt Level 4 (94191) Complex EM visit Add On G2211 Diagnoses Mild major depression F32.0 Essential hypertension I10 Postoperative hypothyroidism E89.0 Hypovitaminosis D E55.9 Transaminitis R74.01 Additional Codes CHARI-7 Assessment Billing - CHARI-7 Assessment Tool: CHARI-7 Assessment 68682 ([id number]) PHQ-9 - 83298 - PHQ-9 Billing: Yes ([id number]) Time Spent (min) 22 Assessment & Plan Assessment & Plan (1) Mild major depression: Code(s): F32.0 - Major depressive disorder, single episode, mild Category: Medical (2) Essential hypertension: Code(s): I10 - Essential (primary) hypertension Category: Medical (3) Postoperative hypothyroidism: Code(s): E89.0 - Postprocedural hypothyroidism Category: Medical (4) Hypovitaminosis D: Code(s): E55.9 - Vitamin D deficiency, unspecified Category: Medical (5) Transaminitis: Code(s): R74.01 - Elevation of levels of liver transaminase levels Category: Medical Plan The plan includes monitoring the liver enzyme levels with a follow-up ultrasound to assess the liver's condition. A hepatitis panel will be conducted to rule out any underlying liver conditions. For constipation, the patient is advised to consider evjg-mmn-svhimnf remedies such as MiraLAX or [place], although she has not used them previously. The patient is advised to monitor her dietary habits to manage her hypercholesterolemia and maintain a low cardiovascular risk. Further evaluation by a spar machine operator may be considered if liver enzyme levels remain elevated without a clear cause. Patient was informed and verbally consented to the use of an ambient scribe for clinic note documentation during this visit. Orders: Orders US abdomen vazquez w elastography Today R74.01 - Elevation of levels of liver transaminase levels Liver Panel Today R74.01 - Elevation of levels of liver transaminase levels Hepatitis A,B,C Profile Today R74.01 - Elevation of levels of liver transaminase levels Mitochondrial Antibody Today R74.01 - Elevation of levels of liver transaminase levels Gamma Glutamyl Transpeptidase Today R74.01 - Elevation of levels of liver transaminase levels Medications: Refilled polyethylene glycol 3350 (Miralax) 17 grams PO DAILY 510 grams 0RF sennosides-docusate sodium 8.6-50 mg (Senna Plus) 1 tab-cap PO BEDTIME 60 caps 2RF 2 months K59.09 - Other constipation
[2025-04-25 09:42] VITALS: BP 144/70; BMI 24.1
--- OUTSIDE RECORDS SUMMARY | 2025-04-25 10:13 | XMS_ITS | Clinical Summary ---
Author Organization [facility] Address [address] [place] [address] Phone Care Team Providers Care Family Practice Physician Name Role Phone Brianna Cruz MD Primary Care Provider [phone] Allergies Active Allergy Reactions Criticality Noted Date [...] DTaP,Tdap,and Td Vaccines (1 - Tdap) 1977 Zoster Vaccines (1 of 2) 1977 Pneumococcal Vaccine: 50+ Ye ars (1 of 1 - PCV) 2008 Colorectal Cancer Screening: Colonoscopy 10/06/2022 Depression [...] to Health Maintenance Insurance [place] - [place] [facility] Member Subscriber Plan / Payer (Ef fective 2024-Present) Name:Carrington Queen Relation to Subscriber:Self Name:Carrington Queen Payer ID:[id number] Group ID:[id number] Type:Not on file Address: [address] [place] [address] Care Teams Family Practice Physician Relationship Specialty Start Date End Date Brianna Cruz MD [address] [place] [address] , [address] [employer] [facility] D/B/A: [facility] JANET Stevenson PCP - General 10/03/23
== END 2025-04-25 10:36 | disposition home or self-care (01) ==
PROVIDERS: PCP Internal Medicine; Visit Provider Internal Medicine
DX: F32.0 Major depressive disorder, single episode, mild (principal); I10 Essential (primary) hypertension; E89.0 Postprocedural hypothyroidism; E55.9 Vitamin D deficiency, unspecified; R74.01 Elevation of levels of liver transaminase levels

== ENCOUNTER → 2025-04-25 09:28 | Outpatient (BNVA) | payer OTHER, SELFPAY | PROVIDERS: PCP Internal Medicine; Visit Provider Internal Medicine | DX: R42 Dizziness and giddiness (principal); K59.00 Constipation, unspecified; R11.0 Nausea; E78.00 Pure hypercholesterolemia, unspecified; F32.0 Major depressive disorder, single episode, mild; I10 Essential (primary) hypertension; E89.0 Postprocedural hypothyroidism; E55.9 Vitamin D deficiency, unspecified; R74.01 Elevation of levels of liver transaminase levels | CPT/HCPCS: 96127; 99212 ==

== ENCOUNTER 2025-05-02 09:37 | Outpatient (REF) | payer OTHER, SELFPAY ==
--- NOTE | ~2025-05-02 | US_ITS ---
EXAMINATION: US ABDOMEN LIMITED WITH LIVER ELASTOGRAPHY HISTORY: R74.01 - Elevation of levels of liver transaminase levels TECHNIQUE: Real-time grayscale ultrasound imaging of the right upper quadrant was performed and images were reviewed. COMPARISON: Correlation is made with an unenhanced CT of the abdomen dated 10/14/2024. FINDINGS: Liver: The right lobe of the liver measures 13.9 cm in size. The left lobe of the liver measures 9.3 cm in size. The liver demonstrates normal homogeneous echotexture. No focal mass or intrahepatic biliary ductal dilatation is identified. There is normal hepatopedal flow in the portal vein. Ultrasound elastography of the liver was performed with 10 separate measurements of the liver parenchyma with the patient in the supine position. Measurements were obtained approximately 2 cm below Sonia's capsule and perpendicular to the capsule. The median shear wave velocity is 1.63 m/s. The interquartile range/median (IQR/median) is 0.04. Gallbladder and biliary tree: The gallbladder is unremarkable, without evidence of calculi, wall thickening, or pericholecystic fluid. There is no sonographic Levin sign. The common bile duct is normal in caliber measuring 3 mm. Right Kidney: The right kidney measures 10.4 cm in length. The right kidney is unremarkable, without evidence of masses, hydronephrosis, or calculi. Pancreas: The pancreatic head, neck, and body are unremarkable. The pancreatic tail is obscured by bowel gas. Abdominal aorta and inferior vena cava: The visualized portions of the abdominal aorta and inferior vena cava are normal in caliber. There is no free fluid in the right upper quadrant. US/US abdomen vazquez w elastography IMPRESSION: Unremarkable right upper quadrant ultrasound. The median shear wave velocity in the liver is 1.63 m/s, corresponding to a median liver stiffness of 8.18 kPa. The IQR/median value is 0.04. This is indicative of a quality data set. Findings are indicative of a low elastography value which rules out advanced chronic liver disease in asymptomatic patients. REFERENCE: Society of Radiologists in Ultrasound Liver Stiffness Thresholds (2019): LIVER STIFFNESS THRESHOLDS: *Shear wave velocity less than 1.3 m/s (Liver Stiffness equal or less than 5 kPa): High probability of being normal. *Shear wave velocity less than 1.7 m/s (Liver Stiffness less than 9 kPa): In the absence of other known clinical signs, rules out compensated advanced chronic liver disease. *Shear wave velocity between 1.7-2.1 m/s (Liver Stiffness 9-13 kPa): Suggestive of compensated advanced chronic liver disease but need further test for confirmation. *Shear wave velocity between 2.1-2.4 m/s (Liver Stiffness 13-17 kPa): Rules in compensated advanced chronic liver disease. *Shear wave velocity greater than 2.4 m/s (Liver Stiffness over 17 kPa): Suggestive of clinically significant portal hypertension. QUALITY OF DATA SET: *IQR/Median value equal or less than 0.15 implies a quality data set. *IQR/Median value over 0.15 implies a poor quality data set. SIGNIFICANT CHANGE FROM PRIOR EXAM: Significant change if liver stiffness measurement is 10% or greater from prior exam. OTHER CONSIDERATIONS: The stage of liver fibrosis may be overestimated in the setting of acute hepatitis, liver inflammation, elevated liver function tests, hepatic vascular congestion, obstructive cholestasis, non-fasting state, and infiltrative diseases such as amyloidosis and lymphoma. In some patients with NAFLD, the liver stiffness thresholds for compensated advanced chronic liver disease may be lower. In causes other than viral hepatitis and NAFLD, liver stiffness thresholds are not well established. Electronically signed by: Quintin Sampson MD 05/02/2025 10:20 AM EDT
--- OUTSIDE RECORDS SUMMARY | 2025-05-02 10:41 | XMS_ITS | Clinical Summary ---
Author Organization [facility] Address [address] [place] [address] Phone Care Team Providers Care Wet Plant Operator Name Role Phone Brianna Cruz MD Primary Care Provider Allergies Active Allergy Reactions Criticality Noted Date [...] to Health Maintenance [place] - [place] [facility] Member Subscriber Plan / Payer (Ef fective 2024-Present) Name:Carrington Queen Relation to Subscriber:Self Name:Carrington Queen Payer ID:[id number] Group ID:[id number] Type:Not on file Address: [address] [place] [address] Care Teams Wet Plant Operator Relationship Specialty Start Date End Date Brianna Cruz MD [address] [place] [address] , [address] [facility] D/B/A: [facility] JANET Stevenson PCP - General 10/03/23
[2025-05-02 11:07] LABS: Alanine Aminotransferase 17 U/L (0-31); Albumin Level 4.5 g/dL (3.5-5.0); Alkaline Phosphatase 55 U/L (39-117); Aspartate Amino Transferase 21 U/L (5-31); Bilirubin Direct 0.2 mg/dL (0.0-0.5); Bilirubin Total 0.7 mg/dL (0.0-1.0); Gamma Glutamyl Transpeptidase 15 U/L (7-33); Total Protein 7.5 g/dL (6.5-8.0)
[2025-05-02 11:33] LABS: HBS Num1 0.42 mIU/mL (0-7.99); HBc Num1 0.06 S/CO (0.00-0.79); HBsAGNum1 0.51 S/CO (0.00-0.99); Hepatitis A Antibody IgM 0.28 Index (0-0.79); Hepatitis B Core Antibody Nonreactive (Nonreactive); Hepatitis B Surface Antigen Negative (Negative); ~HepC Num1 0.11 S/CO (0.00-0.79); ~Hepatitis A Antibody IgM Nonreactive (Nonreactive); ~Hepatitis B Surface Antibody NONREACTIVE (Nonreactive); ~Hepatitis C Antibody Nonreactive (Nonreactive)
[2025-05-02 14:28] LABS: Appearance Urine Clear; Color Urine Yellow; Glucose Urine UA Negative (Negative); Leukocyte Esterase Urine Moderate (2+) (Negative); Nitrite Urine Negative (Negative); UMIC TRIGGER UACC YES; Urine Blood Negative (Negative); Urine Ketones Negative (Negative); Urine Protein Negative (Neg-Trace)
[2025-05-02 14:42] LABS: Bacteria Urine None Seen (None Seen); Hyaline Casts Urine 0-2 /LPF (0-2); RBC Urine 0-2 /HPF (0-2); Squamous Epithelial Cell Urine 0-2 /HPF (0-2); UACC Culture Trigger YES; WBC Urine 0-5 /HPF (0-5)
[2025-05-06 10:50] LABS: Mitochondrial Antibodies NEGATIVE (NEGATIVE)
== END 2025-05-02 09:38 | disposition home or self-care (01) ==
LOC: HO.US 09:37
PROVIDERS: PCP Internal Medicine; Visit Provider Internal Medicine
DX: R74.01 Elevation of levels of liver transaminase levels (principal); R30.0 Dysuria
CPT/HCPCS: 36415; 76705; 76981; 80076; 81001; 82977; 86381; 86704; 86706; 86709; 86803; 87086; 87088; 87186; 87340

== ENCOUNTER → 2025-05-02 09:39 | Outpatient (BNV) | payer OTHER, SELFPAY | PROVIDERS: PCP Internal Medicine; Visit Provider Radiology Diagnostic Radiology | DX: R74.01 Elevation of levels of liver transaminase levels (principal) | CPT/HCPCS: 76705 ==

== ENCOUNTER 2025-05-24 08:46 | Outpatient (AMB) | payer OTHER, SELFPAY ==
--- OUTSIDE RECORDS SUMMARY | 2025-05-24 08:49 | XMS_ITS | Encounter Summary ---
Author Organization [facility] Address [address] [facility] [address] [place] [address] Phone Care Team Providers Care Senior Group Manager Name Role Phone Brianna Navarrete MD Primary Care Provid er Encounter Details Date Type Department Care Team (Late st Contact Info) Description 05/29/2018 Procedure Pass [facility] - [facility], [address] [address] Social History Tobacco Use Types Packs/Day Years Used Date Smoking Tobacco: Never Smokeless Tobacco: Never Alcohol Use Standard Drinks/Week Comments No 0 (1 standard drink = 0.6 oz pur e alcohol) Comments Unknown Sex and Gender Information Value Date Recorded Sex Assigned at Not on file Legal Sex Female 7:13 AM EST Gender Identity Not on file Sexual Orientation Not on file documented as of this encounter Plan of Treatment Not on file documented as of this encounter Visit Diagnoses Not on filedocumented in this encounter Care Teams Senior Group Manager Relationship Specialty Start Date End Date Brianna Navarrete MD [address] [place] [address] PCP - General Internal Medicine 11/16/17 documented as of this encounter Additional Source Comments The information contained in this document represents components of the legal health record. It is not the complete legal health record.[facility]
--- OUTSIDE RECORDS SUMMARY | 2025-05-24 08:49 | XMS_ITS | Clinical Summary ---
Author Organization [facility] Address [address] [place] [address] Phone Care Team Providers Care Voltmeter Operator Name Role Phone Brianna Cruz MD [...] 10/06/2022 Falls Risk Assessment 2023 Influenza Vaccine (#1) 2025 RSV Immunization Adult Patie nts (1 [...] to Health Maintenance Insurance [place] - [place] [facility] Member Subscriber Plan / Payer (Ef fective 2024-Present) Name:Carrington Queen Relation to Subscriber:Self Name:Carrington Queen Payer ID:[id number] Group ID:[id number] Type:Not on file Address: [address] [place] [address] Care Teams Voltmeter Operator Relationship Specialty Start Date End Date Brianna Cruz MD [address] [place] [address] , [address] [facility] D/B/A: [facility] JANET Stevenson PCP - General 10/03/23
--- NOTE | 2025-05-24 09:03 | MHC.OFFWIV ---
Intake Vital Signs 05/24/25 09:04 Height 5 ft 2 in Weight 132 lb BMI 24.1 BP 124/76 Blood Pressure Location Lt brachial Position Sitting Respiration 18 Pulse 80 Pulse Source Pulse Oximeter Temp 97.7 F Temp Source Oral Pulse Oximetry (%) 97 Oxygen Delivery Method Room Air Intake Visit Reasons: EP pain on LT side & ? UTI Intake Note: Pt is here today for walk in visit. Pt c/o L side lower back/abdomen pain. Patient Tobacco Use Status: Never used Tobacco Hoop Maker Machine Required: Yes Hoop Maker Machine Language: Qatari Information Interpreted: non-clinical & clinical Allergies oxycodone (From Percocet) Adverse Reaction (Intermediate, Verified 05/24/25 09:06) Vomiting prednisone Adverse Reaction (Intermediate, Verified 05/24/25 09:06) weakness, facial flushing HPI HPI Comments History of Present Illness Details This is a 64-year-old Qatari-speaking female with a past medical history of hypothyroidism, thyroid cancer and breast cancer presenting for evaluation of right flank pain that she has had for the past 6 days. Patient has been taking Tylenol without relief of her symptoms. She denies having any fevers, chills, hematuria, urinary frequency, dysuria, abdominal pain, nausea, vomiting or postprandial pain. [facility] Medical History (Updated 05/24/25 @ 09:42 by Lyndsey Smith PA-C) Postoperative hypothyroidism History of COVID-19 HTN (hypertension) Depression Hypothyroid Invasive ductal carcinoma of breast Breast nodule Headache Sinus pain Thyroid cancer Essential hypertension Hypocalcemia Hypovitaminosis D Surgical History S/P lumpectomy, left breast Hx of endoscopy History of colonoscopy History of breast biopsy History of section History of thyroidectomy Family History Father Diabetes Stroke Prostate cancer Mother Diabetes Maternal Grandmother Medical history unknown Family/Other Breast cancer Social History Housing: Apartment Are you a primary care transitions nurse to a significant other at home: No Do you presently have visiting nurse or other home services: No Alcohol intake: former Patient Tobacco Use Status: Never used Tobacco e-Cigarette/Vaping Use: Never Used Second Hand Smoke Exposure: No service: No Current occupational status: unemployed Current occupational exposures/hazards: No Cognitive needs: No Hearing needs: No Vision needs: No Female Reproductive History Menstrual Age of Menarche: 7 Review of Systems Const All systems reviewed & are unremarkable except as noted in HPI and below Reports no additional complaints, Denies chills, Denies fatigue and Denies fever(s) Eyes Reports no additional complaints Card Reports no additional complaints, Denies chest pain and Denies dyspnea Resp Reports no additional complaints, Denies cough and Denies dyspnea GI Reports abdominal pain (right flank pain), Denies nausea and Denies vomiting Reports as per HPI, Denies hematuria, Denies dysuria, Reports flank pain (right flank pain), Denies urinary incontinence, Denies urinary hesitancy and Denies urinary urgency Musc Reports no additional complaints Skin/Breast Reports system reviewed and no additional complaints, except as documented Neuro Reports no additional complaints Psych Reports no additional complaints Endo Reports no additional complaints and Denies fatigue Nilo/Lymph Reports no additional complaints Aller/Immun Reports no additional complaints Physical Exam Vital Signs: Last Vital Signs Temp 97.7 F 05/24/25 09:04 Pulse 80 05/24/25 09:04 Resp 18 05/24/25 09:04 BP 124/76 05/24/25 09:04 Pulse Ox 97 05/24/25 09:04 Oxygen Delivery Method Room Air 05/24/25 09:04 BMI result Body Mass Index 24.1 Patient is afebrile Const General: cooperative, healthy appearing, comfortable, no acute distress, well developed, alert, awake and Physically active; No ill appearing Nutritional Appearance: average body habitus Limitations: no limitations Resp Effort & Inspection: normal respiratory effort and not tachypneic Auscultation: clear to auscultation bilaterally Cardio Rate: regular rate Rhythm: regular rhythm GI Palpation (GI): Soft to palpation, Tenderness to palpation present (GI) (right flank; no right CVAT), no guarding, not rigid and No hepatosplenomegaly present Auscultation: normal bowel sounds General: Yes Bimanual renal exam normal bilaterally, Yes bladder normal to palpation and Yes no CVA tenderness Bimanual exam- vagina & uterus: bladder normal to palpation Back/Spine/Pelvis Back: no CVA tenderness Skin General skin exam: no rashes or lesions noted Psych Appearance: grossly normal Mental Status: mental status grossly normal Insight: Good insight present (Psych) Judgement: Good judgement present (Psych) Results AMB Urinalysis, Automated UA Leukoctes 15 Yaniv/uL Last Edit by Violetta Simental Nita on 05/24/25 09:12 UA Nitrite Negative Last Edit by Violetta Simental [facility] on 05/24/25 09:12 UA Urobilinogen 0.2 mg/dL Last Edit by Violetta Simental [facility] on 05/24/25 09:12 UA Protein 0 mg/dL Last Edit by Violetta Simental [facility] on 05/24/25 09:12 UA pH 6.0 Last Edit by Violetta Simental [facility] on 05/24/25 09:12 UA Blood 0 Xavier/uL Last Edit by Violetta Simental [facility] on 05/24/25 09:12 UA Specific [place] 1.015 Last Edit by Violetta Simental [facility] on 05/24/25 09:12 UA Ketone Negative Last Edit by Violetta Simental [facility] on 05/24/25 09:12 UA Bilirubin 0 mg/dL Last Edit by Violetta Simental [facility] on 05/24/25 09:12 UA Glucose 0 mg/dL Last Edit by Violetta Simental [facility] on 05/24/25 09:12 Results Reviewed Results Reviewed: Laboratory Last Values Urine pH (Auto) 6.0 05/24/25 09:11 Specific [place] (Auto) 1.015 05/24/25 09:11 Urine Protein (Auto) 0 mg/dL 05/24/25 09:11 Glucose (UA)(Auto) 0 mg/dL 05/24/25 09:11 Urine Ketones (Auto) Negative 05/24/25 09:11 Urine Blood (Auto) 0 Xavier/uL 05/24/25 09:11 Urine Nitrite (Auto) Negative 05/24/25 09:11 Urine Bilirubin (Auto) 0 mg/dL 05/24/25 09:11 Urine Urobilinogen (Auto) 0.2 mg/dL 05/24/25 09:11 Leukocyte Esterase (Auto) 15 Yaniv/uL 05/24/25 09:11 Assessment & Plan Assessment & Plan (1) Right flank pain: Comment: There is no evidence of an acute UTI or hematuria on urinalysis. There is no right lower quadrant or suprapubic tenderness upon examination. Patient will be discharged home with anti-inflammatory medication. Code(s): R10.9 - Unspecified abdominal pain Plan: Enteric-coated Naprosyn 500 mg as prescribed. Strict return precautions were discussed. Orders: Orders AMB Urinalysis Automated Today Z13.9 - Encounter for screening, unspecified Coding Level of Care Code Est Pt Level 3 (80810) Diagnoses Right flank pain R10.9 Time Spent (min) 20
[2025-05-24 09:04] VITALS: BP 124/76; PULSE 80; RESP 18; TEMP 36.5; O2SAT 97; BMI 24.1
== END 2025-05-24 09:42 | disposition home or self-care (01) ==
PROVIDERS: PCP Internal Medicine; Visit Provider Physician Assistant
DX: Z13.9 Encounter for screening, unspecified (principal); R10.9 Unspecified abdominal pain

== ENCOUNTER → 2025-05-24 08:46 | Outpatient (BNVA) | payer OTHER, SELFPAY | PROVIDERS: PCP Internal Medicine | DX: R10.9 Unspecified abdominal pain (principal); E03.9 Hypothyroidism, unspecified; Z85.850 Personal history of malignant neoplasm of thyroid; Z85.3 Personal history of malignant neoplasm of breast | CPT/HCPCS: 81003; 99212 ==

== ENCOUNTER 2025-06-03 07:53 | Outpatient (AMB) | payer OTHER, SELFPAY ==
--- OUTSIDE RECORDS SUMMARY | 2025-06-03 07:55 | XMS_ITS | Encounter Summary ---
Author Organization [facility] Address [address] [place] [id number] Phone Care Team Providers Care Egg Trayer Name Role Phone Brianna Navarrete MD Primary Care Provid er Encounter Details Date Type Department Care Team (Late st Contact Info) Description 05/29/2018 Procedure Pass [facility] - [facility], [address] [address] Social History Tobacco Use Types Packs/Day Years [...] on filedocumented in this encounter Care Teams Egg Trayer Relationship Specialty Start Date End Date Brianna Navarrete MD [address] [place] [address] PCP - General Internal Medicine 11/16/17 documented as of this encounter Additional Source Comments The information contained in this document represents components of the legal health record. It is not the complete legal health record.[facility]
--- OUTSIDE RECORDS SUMMARY | 2025-06-03 07:55 | XMS_ITS | Clinical Summary ---
Author Organization [facility] Address [address] [place] [address] Phone Care Team Providers Care Event Designer Name Role Phone Brianna Cruz MD Primary Care Provider [phone] Allergies Active Allergy Reactions Criticality Noted Date [...] PCV) 2008 Colorectal Cancer Screening: Colonoscopy 10/06/2022 Osteoporosis Screening (Bone Density Screening) 10/06/2022 Social Influencers of Health Screening 10/06/2022 Falls Risk Assessment 2023 Depression Screening 11/07/2024 Influenza Vaccine (#1) 2025 RSV Immunization Adult [...] to Health Maintenance Insurance MEDICAID - [place] [facility] Member Subscriber Plan / Payer (Ef fective 2024-Present) Name:Carrington Queen Relation to Subscriber:Self Name:Carrington Queen Payer ID:[id number] Group ID:[id number] Type:Not on file Address: [address] [place] [address] Care Teams Event Designer Relationship Specialty Start Date End Date Brianna Cruz MD [address] [place] [address] , [address] [facility] D[facility]A: [facility] JANET Stevenson PCP - General 10/03/23
[2025-06-03 08:05] VITALS: BP 124/66; PULSE 76; TEMP 36.5; O2SAT 95; BMI 23.8
--- NOTE | 2025-06-03 08:05 | MHC.OFFWIV ---
Intake Vital Signs 06/03/25 08:05 Height 5 ft 2 in Weight 130 lb BMI 23.8 BP 124/66 Blood Pressure Location Lt brachial Position Sitting Pulse 76 Pulse Source Pulse Oximeter Temp 97.7 F Temp Source Oral Pulse Oximetry (%) 95 Oxygen Delivery Method Room Air Intake Visit Reasons: EP-rt side ribs pain Intake Note: pt presents with right sided rib pain for 2 weeks, denies any injury Patient Tobacco Use Status: Never used Tobacco Allergies oxycodone (From Percocet) Adverse Reaction (Intermediate, Verified 06/03/25 08:05) Vomiting prednisone Adverse Reaction (Intermediate, Verified 06/03/25 08:05) weakness, facial flushing Do you need a note to return to daycare/school/sports/work: No HPI HPI Comments History of Present Illness Details Danish video foreign language interpreter used for this visit. History of Present Illness - The patient is a 64-year-old female with a past med hx of thyroid cancer, hypothyroidism, gastroesophageal reflux disease, breast cancer, chronic constipation and hypertension presenting with continued right-sided rib pain. - The pain has persisted for one to two weeks, initially evaluated as musculoskeletal, she was told to take naproxen and tylenol, she took tylenol but the pain persists. Naproxen was prescribed but not obtained due to pharmacy issues. - The patient reports frequent chills and abdominal pain at the pit of the stomach, sometimes with nausea. - She denies fevers, increased frequency of urination, pain with urination, blood in her urine, vomiting or diarrhea. - pain is not worse after eating a meal - Last normal BM was about a week ago, was not bloody or black Physical Exam General: Cooperative, healthy appearing, comfortable, no acute distress and well developed Orientation: Patient oriented x3 Limitations: No limitations Head: Normal to inspection Ears: Hearing grossly normal bilaterally Nose: Normal External nose present Face and sinus: Normal facial exam Eyes: Appearance normal, both eyes and all related structures Neck: Normal visual inspection and Yes full ROM Respiratory: Normal respiratory effort and able to speak in complete sentences. GI: soft, TTP throughout R>L sides Skin: No rashes or lesions noted Neuro: Patient oriented x3 Back/spine: neg CVA bilaterallly Extremities: Normal to inspection [facility] Medical History (Updated 06/03/25 @ 08:41 by Breanne Sarah, PA-C) Postoperative hypothyroidism History of COVID-19 HTN (hypertension) Depression Hypothyroid Invasive ductal carcinoma of breast Breast nodule Headache Sinus pain Thyroid cancer Essential hypertension Hypocalcemia Hypovitaminosis D Surgical History S/P lumpectomy, left breast Hx of endoscopy History of colonoscopy History of breast biopsy History of section History of thyroidectomy Family History Father Diabetes Stroke Prostate cancer Mother Diabetes Maternal Grandmother Medical history unknown Family/Other Breast cancer Social History Housing: Apartment Are you a primary child care centre manager to a significant other at home: No Do you presently have visiting nurse or other home services: No Alcohol intake: former Patient Tobacco Use Status: Never used Tobacco e-Cigarette/Vaping Use: Never Used Second Hand Smoke Exposure: No service: No Current occupational status: unemployed Current occupational exposures/hazards: No Cognitive needs: No Hearing needs: No Vision needs: No Female Reproductive History Menstrual Age of Menarche: 7 Review of Systems Const All systems reviewed & are unremarkable except as noted in HPI and below Physical Exam Vital Signs: Last Vital Signs Temp 97.7 F 06/03/25 08:05 Pulse 76 06/03/25 08:05 BP 124/66 06/03/25 08:05 Pulse Ox 95 06/03/25 08:05 Oxygen Delivery Method Room Air 06/03/25 08:05 BMI result Body Mass Index 23.8 Assessment & Plan Assessment & Plan (1) Generalized abdominal pain: Code(s): R10.84 - Generalized abdominal pain Plan: Plan - Conduct a urine test to rule out urinary tract infection. - UA neg for infection or blood - vitals are stable, patient well-appearing and physical exam revealed generalized abdominal pain. With her history of constipation, most likely constipation, we will get KUB to assess. Explained how to treat the constipation with MiraLax or Dulcolax plus or minus a suppository. Advised if she develops a fever or bloody or black stools, she should go to the emergency department. Patient was informed and verbally consented to the use of an ambient scribe for clinic note documentation during this visit. (2) Chronic constipation: Code(s): K59.09 - Other constipation Plan: As above (3) Abdominal pain in female: Code(s): R10.9 - Unspecified abdominal pain Plan: As above Orders: Orders AMB Urinalysis Automated Today Z13.9 - Encounter for screening, unspecified XR KUB Today K59.09 - Other constipation, R10.9 - Unspecified abdominal pain Coding Level of Care Code Est Pt Level 4 (29736) Diagnoses Generalized abdominal pain R10.84 Chronic constipation K59.09 Abdominal pain in female R10.9
== END 2025-06-03 09:05 | disposition home or self-care (01) ==
PROVIDERS: PCP Internal Medicine; Visit Provider Physician Assistant
DX: R10.84 Generalized abdominal pain (principal); K59.09 Other constipation; R10.9 Unspecified abdominal pain; Z13.9 Encounter for screening, unspecified

== ENCOUNTER 2025-06-03 07:53 | Outpatient (REF) | payer OTHER, SELFPAY ==
--- NOTE | ~2025-06-03 | XR_ITS ---
EXAMINATION: XR ABDOMEN KUB CLINICAL INDICATION: R10.9 - Unspecified abdominal pain COMPARISON: None available. TECHNIQUE: AP view of the abdomen. FINDINGS: There is scattered stool and gas in colon without distention. There is no organomegaly. No radiopaque calculi seen. There is enthesophytes along bilateral hip joints. Otherwise no bony abnormality seen.. XR/XR KUB IMPRESSION: Mild constipation. Electronically signed by: Michel Francois MD 06/03/2025 09:20 AM EDT
== END 2025-06-03 07:54 | disposition home or self-care (01) ==
LOC: HO.HMGCX 07:53
PROVIDERS: PCP Internal Medicine; Visit Provider Physician Assistant
DX: R10.84 Generalized abdominal pain (principal); R10.9 Unspecified abdominal pain; K59.09 Other constipation
CPT/HCPCS: 74018; 81003; 99212

== ENCOUNTER → 2025-06-03 08:51 | Outpatient (BNV) | payer OTHER, SELFPAY | PROVIDERS: PCP Internal Medicine; Visit Provider Radiology Diagnostic Radiology | DX: K59.00 Constipation, unspecified (principal) | CPT/HCPCS: 74018 ==

== ENCOUNTER → 2025-06-26 08:21 | Outpatient (BNV) | payer OTHER, SELFPAY | PROVIDERS: Emergency Provider Emergency Medicine; PCP Internal Medicine; Visit Provider Radiology Diagnostic Radiology | DX: M54.2 Cervicalgia (principal); R51.9 Headache, unspecified; M67.824 Other specified disorders of tendon, left elbow; M79.632 Pain in left forearm | CPT/HCPCS: 70450; 72125; 73080; 73090 ==

== ENCOUNTER 2025-06-26 08:29 | Emergency (ER) | payer OTHER, SELFPAY ==
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
--- NOTE | ~2025-06-26 | CT_ITS ---
EXAMINATION: CT HEAD WITHOUT CONTRAST CLINICAL INFORMATION: Left-sided headache COMPARISON: June 28, 2024 TECHNIQUE: Contiguous axial imaging was performed from the skull base to vertex without intravenous administration of contrast. This CT examination was performed using dose optimization techniques as appropriate, variously including the following: *Automated exposure control *Adjustment of mA and/or kV according to patient size (this includes techniques or standardized protocols for targeted exams where dose is matched to indication/reason for exam; i.e. extremities or head) *Use of iterative reconstruction technique DLP: 838 mGY*cm FINDINGS: There is no acute ischemic change. There is no intracranial hemorrhage. There is no mass-effect or midline shift. Basal cisterns and ventricles are within normal limits for age/cerebral volume. Orbits are symmetrical and unremarkable. Paranasal sinuses and mastoid air cells are pneumatized. Mild changes consistent with hyperostosis frontalis are noted. CT/CT head/brain wo IV con IMPRESSION: No acute intracranial abnormality. Electronically signed by: Cirilo Bright MD 06/26/2025 10:53 AM EDT
[2025-06-26 08:37] VITALS: BP 164/83; PULSE 93; RESP 16; TEMP 36.4; O2SAT 99; BMI 22.9
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
--- NOTE | 2025-06-26 10:48 | PC.NURSE ---
pt refused medication for pain, provider notified
--- OUTSIDE RECORDS SUMMARY | 2025-06-26 11:17 | XMS_ITS | Clinical Summary ---
Author Organization [facility] Address [address] [place] [address] Phone Care Team Providers Care Senior Payroll Administrator Name Role Phone Brianna Cruz MD Primary Care Provider [phone] Allergies Active Allergy Reactions Criticality Noted Date [...] to Health Maintenance Insurance [place] - [place] [facility] Member Subscriber Plan / Payer (Ef fective 2024-Present) Name:Carrington Queen Relation to Subscriber:Self Name:Carrington Queen Payer ID:[id number] Group ID:[id number] Type:Not on file Address: [address] [place] [id number] Care Teams Senior Payroll Administrator Relationship Specialty Start Date End Date Brianna Cruz MD [address] [place] [address] , [address] [facility] JANET Stevenson PCP - General 10/03/23
--- OUTSIDE RECORDS SUMMARY | 2025-06-26 11:17 | XMS_ITS | Encounter Summary ---
Author Organization [facility] Address [address] [place] [id number] Phone Care Team Providers Care Watch Engine Operator Name Role Phone Brianna Navarrete MD Primary Care Provid er Encounter Details Date Type Department Care Team (Late st Contact Info) Description 05/29/2018 Procedure Pass [facility] - CT, [address] [address] Social History Tobacco Use Types Packs/Day Years [...] on filedocumented in this encounter Care Teams Watch Engine Operator Relationship Specialty Start Date End Date Brianna Navarrete MD [address] [place] [address] PCP - General Internal Medicine 11/16/17 documented as of this encounter Additional Source Comments The information contained in this document represents components of the legal health record. It is not the complete legal health record.[facility]
[2025-06-26 11:56] VITALS: BP 158/78; PULSE 88; RESP 16; TEMP 36.7; O2SAT 99
== END 2025-06-26 11:58 | disposition home or self-care (01) ==
PROVIDERS: Emergency Provider Emergency Medicine; PCP Internal Medicine
DX: S16.1XXA Strain of muscle, fascia and tendon at neck level, initial encounter (principal); M77.8 Other enthesopathies, not elsewhere classified; M70.832 Other soft tissue disorders related to use, overuse and pressure, left forearm; M25.522 Pain in left elbow; R51.9 Headache, unspecified; M54.2 Cervicalgia; V43.52XA Car driver injured in collision with other type car in traffic accident, initial encounter; Y93.9 Activity, unspecified; Y92.410 Unspecified street and highway as the place of occurrence of the external cause; Y99.8 Other external cause status; Z79.899 Other long term (current) drug therapy
CPT/HCPCS: 70450; 72125; 73080; 73090; 99284

== ENCOUNTER 2025-07-25 18:59 | Emergency (ER) | payer OTHER, SELFPAY ==
--- NOTE | ~2025-07-25 | XR_ITS ---
CLINICAL HISTORY: chest pain 1 view chest x-ray Comparison: CR/SR - XR CHEST 2 VIEWS - 04/16/25 09:41 EDT Findings: The lungs are clear. Heart size is normal. No acute fracture. IMPRESSION: 1. No acute findings. This document has been electronically signed by: Marvin Holley MD on 07/26/2025 00:23:17
[2025-07-25 19:23] VITALS: BP 163/84; PULSE 93; RESP 16; TEMP 36.7; O2SAT 95; BMI 23.6
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
[2025-07-25 19:47] LABS: MANUAL DIFF FLAG NO
[2025-07-25 19:59] LABS: Hematocrit 40.1 % (37.0-47.0); Hemoglobin 14.0 g/dl (12.0-16.0); Imm Gran Abs Auto 0.02 X10*3/uL (0.00-0.03); Imm Gran Pct Auto 0.3 % (0.0-0.4); Lymphocytes Absolute Auto 2.0 X10*3/uL (1.2-4.9); Mean Corpuscular HGB Conc 34.9 g/dl (31.0-35.0); Mean Corpuscular Hemoglobin 31.6 pg (27.0-33.0); Mean Corpuscular Volume 90.5 fL (80.0-98.0); NRBC Abs Auto 0.000 X10*3/uL (0.0-0.012); NRBC Pct Auto 0.0 /100WBC (0.0-0.2); Platelet Count 216 X10*3/uL (160-400); Red Blood Count 4.43 X10*6/uL (4.20-5.50); White Blood Count 6.8 X10*3/uL (4.8-10.8)
[2025-07-25 20:04] LABS: Alanine Aminotransferase 21 U/L (0-31); Albumin Level 4.7 g/dL (3.5-5.0); Alkaline Phosphatase 63 U/L (39-117); Anion Gap 10 (12-20); Aspartate Amino Transferase 27 U/L (5-31); Blood Urea Nitrogen 30 mg/dL (9-16); Calcium 8.7 mg/dL (8.4-10.2); Carbon Dioxide 31 mmol/L (22-29); Chloride 105 mmol/L (96-108); Creatinine Clr Calc Pharmacy 43.7; Estimated Glomerular Filt Rate 55; Potassium 4.0 mmol/L (3.3-5.1); Sodium 142 mmol/L (135-145); Total Protein 7.9 g/dL (6.5-8.0)
--- NOTE | 2025-07-25 21:57 | ECG_ITS ---
Test Reason : BREAST PAIN Blood Pressure : */* mmHG Vent. Rate : 87 BPM Atrial Rate : 87 BPM P-R Int : 162 ms QRS Dur : 88 ms QT Int : 380 ms P-R-T Axes : 6 -11 -7 degrees QTcB Int : 457 ms Normal sinus rhythm Inferior infarct , age undetermined Abnormal ECG When compared with ECG of 11-Oct-2022 20:35, Inferior infarct is now Present T wave inversion now evident in Inferior leads T wave amplitude has increased in Anterior leads Referred By: Corky Valero Electronically Signed By: PHYLLIS CHAN
--- OUTSIDE RECORDS SUMMARY | 2025-07-25 22:09 | XMS_ITS | Encounter Summary ---
Author Organization [facility] Address [address] [place] [phone] Phone Care Team Providers Care Seed Laboratory Technician Name Role Phone Brianna Navarrete MD Primary Care Provid er Encounter Details Date Type Department Care Team (Late st Contact Info) Description 05/29/2018 Procedure Pass [facility] - [facility], [address] [address] Social History Tobacco Use Types Packs/Day Years [...] on filedocumented in this encounter Care Teams Seed Laboratory Technician Relationship Specialty Start Date End Date Brianna Navarrete MD [address] [place] [address] PCP - General Internal Medicine 11/16/17 documented as of this encounter Additional Source Comments The information contained in this document represents components of the legal health record. It is not the complete legal health record.[facility]
--- OUTSIDE RECORDS SUMMARY | 2025-07-25 22:09 | XMS_ITS | Clinical Summary ---
Author Organization [facility] Address [address] [place] [phone] Phone Care Team Providers Care Taper [employer]ed [employer] Layout Name Role Phone Brianna Navarrete MD Primary Care Provid er Allergies No known active allergies Medications calcitriol (ROCALTROL) 0.25 MCG capsule Take 0.25 mcg by mouth daily. Active levothyroxine (SYNTHROID, LEVOTHROID) 50 MCG tablet Take 50 mcg by mouth every morning. Active Active Problems No known active problems Family History Medical History Relation Comments Cancer Father Diabetes Mother Relation Status Comments Father Mother Social History Tobacco Use Types Packs/Day Years Used Date Smoking Tobacco: Never Smokeless Tobacco: Never Alcohol Use Standard Drinks/Week Comments No 0 (1 standard drink = 0.6 oz pur e alcohol) Education Answer Date Recorded Are you interested in more education? Not on lv e 03/04/2023 Are you concerned about learning? Not on file 03/04/2023 No 03/04/2023 No 03/04/2023 Digital Access Answer Date Recorded No 04/02/2023 No 04/02/2023 No 04/02/2023 Reliable internet access at home? Not on file 04/02/2023 Device with a working camera? Not on file Comments Unknown Sex and Gender Information Value Date Recorded Sex Assigned at Not on file Legal Sex Female 7:13 AM EST Gender Identity Not on file Sexual Orientation Not on file Last Filed Vital Signs Vital Sign Reading Time Taken Comments Blood Pressure 168/96 11/28/2017 12:09 PM EST Pulse 84 11/28/2017 12:09 PM EST Temperature - - Respiratory Rate - - Oxygen Saturation - - Inhaled Oxygen Concentration - - Weight 68 kg (150 lb) 06/19/2018 1:04 PM EDT Height 157.5 cm (5' 2 ) 06/19/2018 1:04 PM EDT Body Mass Index 27.44 06/19/2018 1:04 PM EDT Plan of Treatment Health Maintenance Due Date Last Done Comments Adult Td,Tdap Booster 1958 LIPID PANEL 1958 TSH LEVEL 1958 DEPRESSION SCREENING 1970 HEPATITIS C SCREENING 1976 MAMMOGRAM 1998 COLOGUARD 2003 COLONOSCOPY 2003 COLORECTAL CANCER SCREENING 2003 FIT TEST 2003 FOBT 2003 SIGMOIDOSCOPY 2003 VIRTUAL COLONOSCOPY 2003 PNEUMOCOCCAL VACCINES (50+ y ears) (1 of 1 - PCV) 2008 ZOSTER VACCINES (1 of 2) 2008 OSTEOPOROSIS SCREENING INITI AL (ONE-TIME) 2023 INFLUENZA VACCINE (#1) 2025 COVID-19 VACCINE (1 - 2023-2 5 season) 2025 RSV VACCINE (1 - 1-dose 75+ series) 2033 SMOKING STATUS SCREENING (On ce After 26 Yrs) Completed 06/19/2018 HEPATITIS A VACCINES Aged Out No long er eligible based on patient's age to complete this topic HIB VACCINES Aged Out No longer eligi ble based on patient's age to complete this topic MENINGOCOCCAL VACCINES (ACWY) Aged Out No longer eligible based on patient's age to complete this topic MENINGOCOCCAL VACCINES (B) Aged Out N o longer eligible based on patient's age to complete this topic Medical Devices Not on file Insurance MEDICARE PART A & B [facility] & [facility] [place] [address] MEDICARE PART A & B Member Subscriber Plan / Payer ( fective 2010-) Name:Carrington Queen Member ID:[id number] Relation to Subscriber:Self Name:Carrington Queen Subscriber ID:[id number] Payer ID:[id number] Group ID:Not on file Type:Medicare Address: [facility] [employer] [facility] [address] [place] [phone] [place] PART A & B [facility] MEDICARE PART A & B HEALTH MEDICARE PART A & B [place] MEDICARE PART A & B MEDICARE PART A & B [facility] Care Teams T[employer] Layout Relationship Specialty Start Date End Date Brianna Navarrete MD [address] [place] [address] PCP - General Internal Medicine 11/16/17 Additional Source Comments The information contained in this document represents components of the legal health record. It is not the complete legal health record.[facility]
[2025-07-25 22:56] VITALS: BP 141/74; PULSE 78; RESP 18; TEMP 37; O2SAT 97
[2025-07-25 22:58] LABS: Troponin-I High Sensitivity < 2.7 ng/L (<3.5-17.0)
[2025-07-25 23:04] LABS: INTERNATIONAL NORM RATIO 1.0 (0.9-1.1); Prothrombin Time 11.2 SEC (10.9-12.4)
[2025-07-25 23:07] LABS: Partial Thromboplastin Time 29.3 SEC (26.7-34.1)
--- NOTE | 2025-07-26 00:14 | MHC.EDTECH ---
pt refusing repeat troponin, provider aware.
[2025-07-26 00:53] VITALS: BP 137/88; PULSE 82; RESP 16; TEMP 36.9; O2SAT 97
[2025-07-26 01:01] VITALS: BP 137/88; PULSE 82; RESP 16; TEMP 36.9; O2SAT 97
== END 2025-07-26 01:02 | disposition left against medical advice (07) ==
PROVIDERS: Physician Assistant; Physician Assistant Medical; Emergency Provider Student in an Organized Health Care Education/Training Program; PCP Internal Medicine
DX: N64.4 Mastodynia (principal); R07.9 Chest pain, unspecified; M79.602 Pain in left arm; Z79.899 Other long term (current) drug therapy
CPT/HCPCS: 36415; 71045; 80048; 80076; 84484; 85025; 85610; 85730; 93005; 99283; 99284

== ENCOUNTER → 2025-07-25 21:57 | Outpatient (BNV) | payer OTHER, SELFPAY | PROVIDERS: Emergency Provider Student in an Organized Health Care Education/Training Program; PCP Internal Medicine; Visit Provider Internal Medicine | DX: R94.31 Abnormal electrocardiogram [ECG] [EKG] (principal); N64.4 Mastodynia | CPT/HCPCS: 93010 ==

== ENCOUNTER → 2025-07-25 21:59 | Outpatient (BNV) | payer OTHER, SELFPAY | PROVIDERS: Emergency Provider Student in an Organized Health Care Education/Training Program; PCP Internal Medicine; Visit Provider Radiology Diagnostic Radiology | DX: R07.9 Chest pain, unspecified (principal) | CPT/HCPCS: 71045 ==

== ENCOUNTER 2025-07-31 14:41 | Outpatient (AMB) | payer OTHER, SELFPAY ==
[2025-07-31 15:22] VITALS: BP 118/80; PULSE 81; O2SAT 95; BMI 23.4
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
--- OUTSIDE RECORDS SUMMARY | 2025-07-31 17:16 | XMS_ITS | Clinical Summary ---
Author Organization [facility] Address [address] [place] [address] Phone Care Team Providers Care Concrete Craftsman Name Role Phone Brianna Cruz MD Primary Care Provider [phone] Allergies Active Allergy Reactions Criticality Noted Date [...] to Health Maintenance Insurance [place] - [place] [facility] Member Subscriber Plan / Payer (Ef fective 2024-Present) Name:Carrington Queen Relation to Subscriber:Self Name:Carrington Queen Payer ID:[id number] Group ID:[id number] Type:Not on file Address: [address] [place] [address] Care Teams Concrete Craftsman Relationship Specialty Start Date End Date Brianna Cruz MD [address] [place] [address] , [address] [facility] D/B/A: [facility] JANET Stevenson PCP - General 10/03/23
--- OUTSIDE RECORDS SUMMARY | 2025-07-31 17:17 | XMS_ITS | Clinical Summary ---
Author Organization [facility] Address [address] [facility] [address] [place] [phone] Phone Care Team Providers Care Electric Organ Assembler And Checker Name Role Phone Brianna Navarrete MD Primary [...] file Insurance MEDICARE PART A & B [facility] MEDICARE PART A & B [facility] [place] [address] MEDICARE PART A & B Member Subscriber Plan / Payer ( fective 2010-) Name:Carrington Queen Member ID:[id number] Relation to Subscriber:Self Name:Carrington Queen Subscriber ID:[id number] Payer ID:[id number] Group ID:Not on file Type:Medicare Address: [facility] [place] [facility] [address] [place] [id number] [place] MED[place] PART A & B [facility] MEDICARE PART A & B HEALTH MEDICARE PART A & [place] MEDICARE PART A & B HEALTH MEDICARE PART A & B MEDICARE PART A & B [facility] Care Teams Electric Organ Assembler And Checker Relationship Specialty Start Date End Date Brianna Navarrete MD [address] [facility] [place] [address] PCP - General Internal Medicine 11/16/17 Additional Source Comments The information contained in this document represents components of the legal health record. It is not the complete legal health record.[facility]
--- OUTSIDE RECORDS SUMMARY | 2025-07-31 17:17 | XMS_ITS | Encounter Summary ---
Author Organization [facility] Address [address] [facility] [address] [place] [address] Phone Care Team Providers Care Registered Nurse Maternal Child Name Role Phone Brianna Navarrete MD Primary Care Provid er Encounter Details Date Type Department Care Team (Late st Contact Info) Description 05/29/2018 Procedure Pass [facility] - [facility], [address] [address] Social History Tobacco Use Types Packs/Day Years [...] on filedocumented in this encounter Care Teams Registered Nurse Maternal Child Relationship Specialty Start Date End Date Brianna Navarrete MD [address] [place] [address] PCP - General Internal Medicine 11/16/17 documented as of this encounter Additional Source Comments The information contained in this document represents components of the legal health record. It is not the complete legal health record.[facility]
== END 2025-07-31 16:05 | disposition home or self-care (01) ==
LOC: HO.HMCH 14:42
PROVIDERS: PCP Internal Medicine; Visit Provider Internal Medicine
DX: N64.4 Mastodynia (principal); M54.2 Cervicalgia; M79.602 Pain in left arm

== ENCOUNTER → 2025-07-31 14:41 | Outpatient (BNVA) | payer OTHER, SELFPAY | PROVIDERS: PCP Internal Medicine; Visit Provider Internal Medicine | DX: M54.2 Cervicalgia (principal); M25.512 Pain in left shoulder; M79.602 Pain in left arm; N64.4 Mastodynia; V89.2XXD Person injured in unspecified motor-vehicle accident, traffic, subsequent encounter | CPT/HCPCS: 99212 ==

== ENCOUNTER 2025-10-16 09:20 | Outpatient (AMB) | payer OTHER, SELFPAY ==
--- NOTE | 2025-10-16 09:23 | A.OFFPC_ITS ---
Vital Signs 10/16/25 09:24 Height 5 ft 2 in Weight 129 lb BMI 23.6 BP 124/68 Blood Pressure Location Rt brachial Position Sitting Pulse 75 Pulse Source Pulse Oximeter Pulse Oximetry (%) 96 Oxygen Delivery Method Room Air Intake Visit Reasons: bp,thyroid Senior Test Engineer Required: No Accompanied by: Self / Same As Patient Allergies latex Allergy (Verified 10/16/25 09:38) Hives oxycodone (From Percocet) Adverse Reaction (Intermediate, Verified 10/16/25 09:38) Vomiting prednisone Adverse Reaction (Intermediate, Verified 10/16/25 09:38) weakness, facial flushing Medication List - Last Reconciled 10/16/25 by Brianna Cruz MD alprazolam 1 mg (2 x 0.5 mg) PO DAILY 1 day [bedside assist rail As directed] bisacodyl (Dulcolax (bisacodyl)) 10 mg (2 x 5 mg) PO ONCE 3 days buspirone 5 mg PO BID itpieyedcx-ekrycxngiccfi-dogh 50-300-40 mg (Fioricet) 1 cap PO Q8H PRN calcitriol 0.25 mcg PO TID 90 days [chrome bar As directed] [chrome bar As directed] citalopram 20 mg PO DAILY cyclobenzaprine 10 mg PO BEDTIME PRN cyclobenzaprine 5 mg PO BID 5 days Grabber As directed [hinged bolt down toilet seat riser As directed] hydrochlorothiazide 25 mg PO DAILY 90 days hydroxyzine pamoate 25 mg PO ONCE ibuprofen 600 mg PO Q6H PRN letrozole 1 tab PO DAILY levothyroxine 100 mcg PO DAILY 90 days lorazepam 1 mg (2 x 0.5 mg) PO DAILY PRN 2 days nitrofurantoin macrocrystal 100 mg PO BID 5 days polyethylene glycol 3350 (Miralax) 17 grams PO DAILY sennosides-docusate sodium 8.6-50 mg (Senna Plus) 1 tab-cap PO BEDTIME 2 months sumatriptan succinate 25 mg PO Q2-4H PRN 30 days Tobacco use date assessed: 07/31/25 Fall risk assessment: No Falls in past year Dental Screening Dental Screen Date: 07/31/25 HPI HPI Comments History of Present Illness Details The patient is a 65 year old female presenting for a routine follow-up visit. She has a history of invasive ductal carcinoma of the breast, diagnosed in late 2020 via biopsy, with surgery in 2021. She has been taking letrozole for this condition since 2021. Her current medications include Fioricet for headaches, hydrochlorothiazide 25 mg, ibuprofen as needed, levothyroxine 100 mcg for hypothyroidism secondary to thyroid cancer, Miralax and Senna Plus as needed for constipation, and sumatriptan as needed for migraines. She also takes calcitriol three times a day. She reports that she is no longer taking buspirone and citalopram for anxiety. 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 Her known allergies include latex, Percocet, and prednisone. Her labs and chest x-ray from July were normal. She is followed by specialists in [place] for her thyroid condition and vitamin D levels. She has an upcoming mammogram scheduled for the [facility] Medical History Postoperative hypothyroidism History of COVID-19 HTN (hypertension) Depression Hypothyroid Invasive ductal carcinoma of breast Breast nodule Headache Sinus pain Thyroid cancer Essential hypertension Hypocalcemia Hypovitaminosis D Surgical History S/P lumpectomy, left breast Hx of endoscopy History of colonoscopy History of breast biopsy History of section History of thyroidectomy Family History Father Diabetes Stroke Prostate cancer Mother Diabetes Maternal Grandmother Medical history unknown Family/Other Breast cancer Social History Housing: Apartment Are you a primary transitional care manager to a significant other at home: No Do you presently have visiting nurse or other home services: No Alcohol intake: former Patient Tobacco Use Status: Never used Tobacco Tobacco use type: Cigarette e-Cigarette/Vaping Use: Never Used Second Hand Smoke Exposure: No service: No Current occupational status: unemployed Current occupational exposures/hazards: No Cognitive needs: No Hearing needs: No Vision needs: No Female Reproductive History Menstrual Age of Menarche: 7 Questionnaire Thrive Questionnaire Date Thrive assessed: 04/16/25 I am a: Patient What is your living situation today?: I have a steady place to live Within the past 12 months, did the food you bought not last and you didn't have the money to get more?: Never true Within the past 12 months, did you worry whether your food would run out before you got money to buy more?: Never true Do you have trouble paying for medicines?: I choose not to answer this question Do you have trouble getting transportation to medical appointments?: No Do you have trouble paying your heating and electricity bill?: No Do you have trouble taking care of your child, family member or friend?: No Do you have trouble with day-to-day activities such as bathing, preparing meals, shopping, managing finances, etc.?: Yes Are you currently unemployed and looking for a job?: Yes Are you interested in more education?: No Please select the resources that you would like help with: None Currently or been in a relationship where the following occur: No concerns reported THRIVE Score: 0 CHARI-7 AMB Questionnaire CHARI-7 Date CHARI - 7 assessed: 04/25/25 Source: Developed by Drs. Quintin Ugalde, Shayla Vidales, Kristian Armenta and colleagues, with an educational linda from [employer]. Review of Systems Const All systems reviewed & are unremarkable except as noted in HPI and below Card Denies chest pain at rest, Denies chest pain with activity, Denies edema, Denies irregular heart rhythm, Denies claudication, Denies dyspnea, Denies dyspnea on exertion, Denies orthopnea, Denies paroxysmal nocturnal dyspnea and Denies slow heart rate Resp Denies cough, Denies dyspnea and Denies dyspnea on exertion Physical exam (Primary Care) Vital Signs: Last Vital Signs Pulse 75 10/16/25 09:24 BP 124/68 10/16/25 09:24 Pulse Ox 96 10/16/25 09:24 Oxygen Delivery Method Room Air 10/16/25 09:24 BMI result Body Mass Index 23.6 Tobacco/Smoking Status: Tobacco use Status Tobacco use date assessed 07/31/25 10/16/25 09:30 Patient Tobacco Use Status Never used Tobacco 10/16/25 09:30 Tobacco use type Cigarette 10/16/25 09:30 e-Cigarette/Vaping Use Never Used 10/16/25 09:30 Thrive Assessment: Date of Thrive Assessment Date Thrive assessed 04/16/25 10/16/25 09:30 Currently or been in a relationship where the following occur: No concerns reported Resp Effort & Inspection: normal respiratory effort Auscultation: clear to auscultation bilaterally Cardio Jugular venous distension: no JVD Rate: regular rate Rhythm: regular rhythm Heart sounds: S1 normal heart sound present and S2 normal heart sound present Extrem General: Yes full ROM Coding Level of Care Code Complex visit Add On G2211 Diagnoses Essential hypertension I10 Postoperative hypothyroidism E89.0 Chronic idiopathic constipation K59.04 Infiltrating ductal carcinoma of left breast C50.912 Laterality: left Chronic tension-type headache, not intractable G44.229 Headache type: tension-type Headache chronicity pattern: chronic headache Intractability: not intractable Time Spent (min) 23 Assessment & Plan Assessment & Plan (1) Essential hypertension: Code(s): I10 - Essential (primary) hypertension Category: Medical (2) Postoperative hypothyroidism: Code(s): E89.0 - Postprocedural hypothyroidism Category: Medical (3) Chronic idiopathic constipation: Code(s): K59.04 - Chronic idiopathic constipation Category: Medical (4) Invasive ductal carcinoma of breast: Code(s): C50.919 - Malignant neoplasm of unspecified site of unspecified female breast Category: Medical Qualifiers: Laterality: left Qualified Code(s): C50.912 - Malignant neoplasm of unspecified site of left female breast (5) Headache: Code(s): R51.9 - Headache, unspecified Category: Medical Qualifiers: Headache type: tension-type Headache chronicity pattern: chronic headache Intractability: not intractable Qualified Code(s): G44.229 - Chronic tension-type headache, not intractable Plan Plan 1. Invasive Ductal Carcinoma Of Breast The patient continues treatment with letrozole following her diagnosis in 2020 and surgery in 2021. She has an upcoming mammogram scheduled. Management for thyroid and vitamin D levels is deferred to her specialists in [place]. 3. Anxiety and mild major depression The patient reports she is no longer taking buspirone and citalopram. No changes to the plan will be made at this time. 4. Essential hypertension Continue hydrochlorothiazide. Blood pressure goal is equal or less than 130/80. 5. Hypothyroidism Continue levothyroxine. Follow-up with endocrinology in [place]. 6. Chronic idiopathic constipation Follow a high-fiber diet. Continue MiraLax as needed. Orders: Orders Lipid Panel 7 Months E78.5 - Hyperlipidemia, unspecified Comprehensive [place]. Panel Fast 7 Months I10 - Essential (primary) hypertension
[2025-10-16 09:24] VITALS: BP 124/68; PULSE 75; O2SAT 96; BMI 23.6
== END 2025-10-16 10:02 | disposition home or self-care (01) ==
LOC: HO.HMCH 09:20
PROVIDERS: PCP Internal Medicine; Visit Provider Internal Medicine
DX: I10 Essential (primary) hypertension (principal); E89.0 Postprocedural hypothyroidism; K59.04 Chronic idiopathic constipation; C50.912 Malignant neoplasm of unspecified site of left female breast; G44.229 Chronic tension-type headache, not intractable

== ENCOUNTER → 2025-10-16 09:20 | Outpatient (BNVA) | payer OTHER, SELFPAY | PROVIDERS: PCP Internal Medicine; Visit Provider Internal Medicine | DX: I10 Essential (primary) hypertension (principal); E89.0 Postprocedural hypothyroidism; K59.04 Chronic idiopathic constipation; C50.912 Malignant neoplasm of unspecified site of left female breast; G44.229 Chronic tension-type headache, not intractable; F41.9 Anxiety disorder, unspecified; F32.A Depression, unspecified | CPT/HCPCS: 99212 ==

== ENCOUNTER 2025-10-26 20:12 | Emergency (ER) | payer OTHER, SELFPAY ==
[2025-10-26 20:23] VITALS: BP 170/81; PULSE 91; RESP 16; TEMP 36.6; O2SAT 97; BMI 23.4
--- NOTE | 2025-10-26 20:23 | ED_ITS ---
HPI - Abdominal Pain General Chief Complaint: General Medical Stated Complaint: side pain Time Seen by Provider: 10/26/25 22:32 Source: patient Mode of arrival: ambulatory Limitations: no limitations History of Present Illness ED Provider: Dr. Alcantar HPI narrative: 65-year-old female presented hospital today for right-sided flank pain and epigastric pain. It is going to for a week now. Patient stated the pain has improved. No dysuria. No hematuria. No trouble urinating. Patient also states she hit her forehead on a door. She is complaining of numbness on the forehead. No loss of consciousness. No nausea no vomiting no headaches. pain is reproducible on exam. Related Data Home Medications ?Medication ?Instructions ?Recorded ?Confirmed buspirone 5 mg tablet 5 mg PO BID 11/04/21 5 citalopram 20 mg tablet 20 mg PO DAILY 11/04/2110/07 ibuprofen 600 mg tablet 600 mg PO Q6H PRN Pain 03/1510/16/25 letrozole 2.5 mg tablet 1 tab PO DAILY 01/17/2310/07 Previous Rx's ?Medication ?Instructions ?Recorded bisacodyl 5 mg tablet,delayed 10 mg (2 x 5 mg) PO ONCE colon 04/29/22 release (Dulcolax (bisacodyl)) prep 3 days #6 tabs cyclobenzaprine 10 mg tablet 10 mg PO BEDTIME PRN musc le spasm 10/11/22 #7 tabs hydroxyzine pamoate 25 mg capsule 25 mg PO ONCE anxiet y #1 cap 09/22/23 alprazolam 0.5 mg tablet 1 mg (2 x 0.5 mg) PO DAILY 1 day 10/25/23 #2 tabs lorazepam 0.5 mg tablet 1 mg (2 x 0.5 mg) PO DAILY P RN 11/01/23 anxiety 2 days #4 tabs csfqcawsdb-gkpkznihxlxkc-sfrqnufk 1 cap PO Q8H PRN hea dache #6 caps 07/03/24 50 mg-300 mg-40 mg capsule (Fioricet) levothyroxine 100 mcg tablet 100 mcg PO DAILY 90 days #90 tabs 07/14/24 Grabber #1 ea 09/24/24 bedside assist rail #1 ea 11/18/24 chrome bar #1 ea 09/24/24 chrome bar #1 ea 09/24/24 hinged bolt down toilet seat riser #1 ea 09/24/24 sumatriptan succinate 25 mg tablet 25 mg PO Q2-4H PRN migraine 12/25/24 headache 30 days #9 tabs sennosides 8.6 mg-docusate sodium 1 tab-cap PO BEDTIME 2 months #60 04/25/25 50 mg capsule (Senna Plus) caps nitrofurantoin macrocrystal 100 mg 100 mg PO BID 5 day s #10 caps 05/11/25 capsule calcitriol 0.25 mcg capsule 0.25 mcg PO TID 90 days #2 70 caps 05/15/25 cyclobenzaprine 5 mg tablet 5 mg PO BID 5 days #10 tab s 06/26/25 polyethylene glycol 3350 17 17 g PO DAILY #510 grams 0 07/16/25 gram/dose oral powder (Miralax) hydrochlorothiazide 25 mg tablet 25 mg PO DAILY 90 day s #90 tabs 09/30/25 acetaminophen 500 mg tablet 1,000 mg (2 x 500 mg) PO Q 8H 10 10/26/25 days #60 tabs omeprazole 20 mg capsule,delayed 20 mg PO DAILY 14 day s #14 caps 10/26/25 release ondansetron 4 mg disintegrating 4 mg PO Q8H PRN nausea and 10/26/25 tablet vomiting #14 tabs Allergies Allergy/AdvReac Type Severity Reaction Status Date / Time latex Allergy Hives Verified 10/26/25 20:28 oxycodone (From Percocet) AdvReac Intermediate Vomiting Verified 10/26/25 20:28 prednisone AdvReac Intermediate weakness, Verified 10/26/25 20:28 facial flushing Review of Systems Review of Systems Pertinent review of systems as mentioned in HPI. All other system otherwise negative. [facility] Past Medical History [facility] Narrative: Medical history as mentioned in HPI Medical History Postoperative hypothyroidism History of COVID-19 HTN (hypertension) Depression Hypothyroid Invasive ductal carcinoma of breast Breast nodule Headache Sinus pain Thyroid cancer Essential hypertension Hypocalcemia Hypovitaminosis D Surgical History S/P lumpectomy, left breast Hx of endoscopy History of colonoscopy History of breast biopsy History of section History of thyroidectomy Family History Family History Father Diabetes Stroke Prostate cancer Mother Diabetes Maternal Grandmother Medical history unknown Family/Other Breast cancer Social History Social History Housing: Apartment Are you a primary career development facilitator to a significant other at home: No Do you presently have visiting nurse or other home services: No Alcohol intake: former Patient Tobacco Use Status: Never used Tobacco Tobacco use type: Cigarette e-Cigarette/Vaping Use: Never Used Second Hand Smoke Exposure: No Advance Directives: No Advance Directives Information Provided: No Do you have a plan to hurt others: No Plan service: No Current occupational status: unemployed Current occupational exposures/hazards: No Cognitive needs: No Hearing needs: No Vision needs: No Physical Exam ED Exam Exam: General: Pleasant, no distress, interacting appropriately Head: Normacephalic, atraumatic ENT: oral mucosa moist, neck supple, no tracheal deviation Gastrointestinal: Soft, non distended, Epigastric tenderness on palpation, no CVA tenderness on the right side on evaluation Neurological: Awake and alert, no facial droop noted Skin: Warm and dry Psychiatric: Appropriate mood and thoughts Vital Signs: Vital Signs - 24 hr 10/26/25 20:23 Temperature 97.9 F Pulse Rate 91 Respiratory Rate 16 Blood Pressure 170/81 H Pulse Oximetry 97 Oxygen Delivery Method Room Air BMI result Body Mass Index 23.4 Course Course Course Narrative: Sydnee Rosado APRN 10/26 2023 This is a rapid medical exam. Deferred additional HPI, ROS, PE to primary provider. 65 yo female with history of thyroid cancer/breast cancer in remission here with right sided abdominal pain x 1 week. Also had head injury. A door closed and hit her in the head today at 2.5hrs ago. No LOC. Neuro intact. Will obtain labs, UA I do not believe that she needs CT head imaging. Will defer this decision to her primary provider. VSS Medical Decision Making Medical Decision Making MDM Narrative: 65-year-old female presented hospital today for evaluation of right-sided flank pain and head injury. On exam patient is neurologically intact. No loss of consciousness not complain of any headache or nausea or vomiting. Signs of significant intracranial injury. Low mechanism of injury. She is neurologically intact. No neurological deficit on exam. Patient is complaining of epigastric tenderness on palpation. We will plan to give patient GI cocktail. However patient would like to defer this at this time. I will plan to discharge patient with a course of omeprazole to take. Tylenol will be prescribed for her right-sided flank pain. I have low suspicion for nephrolithiasis as she does not have any CVA tenderness on exam. It has not come in complaining of any hematuria or dysuria. I have low suspicion for UTI or pyelonephritis. lab work does show signs of dehydration otherwise no significant abnormality. Plan to discharge patient with a close outpatient follow up with her primary care doctor. She is agreeable to this plan. air brake mechanic was used for this encounter. Differential Diagnosis Differential Diagnoses: The differential diagnosis associated with the presentation includes Right-sided flank pain, epigastric pain, gastritis, closed head injury, intracranial bleed Lab Data MDM Lab Attestation statement: I reviewed the patient's lab results. 10/26/25 20:48 10/26/25 20:48 Labs: Lab Results 10/26/25 Range/Units 20:48 WBC 7.2 (4.8-10.8) X10*3/uL RBC 4.64 (4.20-5.50) X10*6/uL Hgb 14.4 (12.0-16.0) g/dl Hct 42.8 (37.0-47.0) % MCV 92.2 (80.0-98.0) fL MCH 31.0 (27.0-33.0) pg MCHC 33.6 (31.0-35.0) g/dl RDW 12.3 (11.0-16.0) % Plt Count 235 (160-400) X10*3/uL MPV 11.5 (9.4-12.3) fL Immature Gran % (Auto) 0.3 (0.0-0.4) % Neut % (Auto) 55.9 (45-73) % Lymph % (Auto) 33.8 (20-40) % [place] % (Auto) 8.6 (2-11) % Eos % (Auto) 1.0 (0-4) % Baso % (Auto) 0.4 (0-2) % Lymph # (Auto) 2.4 (1.2-4.9) X10*3/uL [place] # (Auto) 0.6 (0.1-1.2) X10*3/uL Eos # (Auto) 0.1 (0.0-0.4) X10*3/uL Baso # (Auto) 0.0 (0.0-0.2) X10*3/uL Abs Immat Gran (auto) 0.02 (0.00-0.03) X10*3/uL Absolute Neuts (auto) 4.0 (2.0-8.3) x10*3/uL Absolute Nucleated RBC 0.000 (0.0-0.012) X10*3/uL Nucleated RBC % (auto) 0.0 (0.0-0.2) /100WBC Sodium 145 (135-145) mmol/L Potassium 4.2 (3.3-5.1) mmol/L Chloride 105 (96-108) mmol/L Carbon Dioxide 29 (22-29) mmol/L Anion Gap 15 (12-20) BUN 27 H (9-16) mg/dL Creatinine 1.01 (0.5-1.4) mg/dL Estim Creat Clear Calc 42.7 Estimated GFR 55 Random Glucose 97 (60-115) mg/dL Calcium 8.4 (8.4-10.2) mg/dL Total Bilirubin 0.3 (0.0-1.0) mg/dL Direct Bilirubin 0.1 (0.0-0.5) mg/dL AST 26 (5-31) U/L ALT 26 (0-31) U/L Alkaline Phosphatase 67 (39-117) U/L Total Protein 8.0 (6.5-8.0) g/dL Albumin 4.8 (3.5-5.0) g/dL Discharge Plan Discharge Clinical Impression: Abdominal pain Qualifiers: Abdominal location: generalized Qualified Code(s): R10.84 - Generalized abdominal pain Patient Disposition: Home, Self-Care Instructions: Abdominal Pain (ED) Additional Instructions: Follow up with primary care doctor in a week. Prescriptions: New ondansetron 4 mg tablet,disintegrating 4 mg PO Q8H PRN (Reason: nausea and vomiting) Qty: 14 0RF omeprazole 20 mg capsule,delayed release(DR/EC) 20 mg PO DAILY 14 Days Qty: 14 0RF acetaminophen 500 mg tablet 1,000 mg PO Q8H 10 Days Qty: 60 0RF No Action alprazolam 0.5 mg tablet 1 mg PO DAILY 1 Days Qty: 2 0RF Rx Instructions: Take 30 to 45 minutes before MRI. lorazepam 0.5 mg tablet 1 mg PO DAILY PRN (Reason: anxiety) 2 Days Qty: 4 0RF Rx Instructions: Take 45 minutes before flying levothyroxine 100 mcg tablet 100 mcg PO DAILY 90 Days Qty: 90 1RF (DME) bedside assist rail See Rx Instructions .Route .MEDSUPPLY Qty: 1 0RF Rx Instructions: As directed (DME) chrome bar 24 See Rx Instructions .Route .MEDSUPPLY Qty: 1 0RF Rx Instructions: As directed (DME) chrome bar 18 See Rx Instructions .Route .MEDSUPPLY Qty: 1 0RF Rx Instructions: As directed (DME) hinged bolt down toilet seat riser See Rx Instructions .Route .MEDSUPPLY Qty: 1 0RF Rx Instructions: As directed (DME) Grabber Misc See Rx Instructions .Route Qty: 1 0RF Rx Instructions: As directed sumatriptan succinate 25 mg tablet 25 mg PO Q2-4H PRN (Reason: migraine headache) 30 Days Qty: 9 0RF Rx Instructions: do not exceed 8 doses per 24 hrs nitrofurantoin macrocrystal 100 mg capsule 100 mg PO BID 5 Days Qty: 10 0RF Rx Instructions: must administer with a meal/food calcitriol 0.25 mcg capsule 0.25 mcg PO TID 90 Days Qty: 270 3RF polyethylene glycol 3350 [Miralax] 17 gram/dose powder 17 g PO DAILY Qty: 510 0RF hydrochlorothiazide 25 mg tablet 25 mg PO DAILY 90 Days Qty: 90 1RF letrozole 2.5 mg tablet 1 tab PO DAILY cyclobenzaprine 10 mg tablet 10 mg PO BEDTIME PRN (Reason: muscle spasm) Qty: 7 0RF cyclobenzaprine 5 mg tablet 5 mg PO BID 5 Days Qty: 10 0RF ibuprofen 600 mg tablet 600 mg PO Q6H PRN (Reason: Pain) hydroxyzine pamoate 25 mg capsule 25 mg PO ONCE Qty: 1 0RF Rx Instructions: prior to MRI yzuuxafipg-lrtaayxuxgxjm-jvfk [Fioricet] 50-300-40 mg capsule 1 cap PO Q8H PRN (Reason: headache) Qty: 6 0RF buspirone 5 mg tablet 5 mg PO BID citalopram 20 mg tablet 20 mg PO DAILY bisacodyl [Dulcolax (bisacodyl)] 5 mg tablet,delayed release (DR/EC) 10 mg PO ONCE 3 Days Qty: 6 0RF Rx Instructions: Take 2 tablets at 12 pm daily starting 3 days before colonoscopy appointment Senna Plus 8.6-50 mg capsule 1 tab-cap PO BEDTIME 60 Days Qty: 60 2RF Print Language: Macedonian
[2025-10-26 20:51] LABS: MANUAL DIFF FLAG NO
[2025-10-26 20:58] LABS: Hematocrit 42.8 % (37.0-47.0); Hemoglobin 14.4 g/dl (12.0-16.0); Imm Gran Abs Auto 0.02 X10*3/uL (0.00-0.03); Imm Gran Pct Auto 0.3 % (0.0-0.4); Lymphocytes Absolute Auto 2.4 X10*3/uL (1.2-4.9); Mean Corpuscular HGB Conc 33.6 g/dl (31.0-35.0); Mean Corpuscular Hemoglobin 31.0 pg (27.0-33.0); Mean Corpuscular Volume 92.2 fL (80.0-98.0); NRBC Abs Auto 0.000 X10*3/uL (0.0-0.012); NRBC Pct Auto 0.0 /100WBC (0.0-0.2); Platelet Count 235 X10*3/uL (160-400); Red Blood Count 4.64 X10*6/uL (4.20-5.50); White Blood Count 7.2 X10*3/uL (4.8-10.8)
[2025-10-26 21:13] LABS: Alanine Aminotransferase 26 U/L (0-31); Albumin Level 4.8 g/dL (3.5-5.0); Alkaline Phosphatase 67 U/L (39-117); Anion Gap 15 (12-20); Aspartate Amino Transferase 26 U/L (5-31); Blood Urea Nitrogen 27 mg/dL (9-16); Calcium 8.4 mg/dL (8.4-10.2); Carbon Dioxide 29 mmol/L (22-29); Chloride 105 mmol/L (96-108); Creatinine Clr Calc Pharmacy 42.7; Estimated Glomerular Filt Rate 55; Potassium 4.2 mmol/L (3.3-5.1); Sodium 145 mmol/L (135-145); Total Protein 8.0 g/dL (6.5-8.0)
--- OUTSIDE RECORDS SUMMARY | 2025-10-26 22:43 | XMS_ITS | Continuity of Care Document ---
Author Name [facility], Medical Address [address] [place] [id number] Organization Unknown Address [address] [place] [id number] Medications No known medications Problems No known problems
--- OUTSIDE RECORDS SUMMARY | 2025-10-26 22:43 | XMS_ITS | Data Portability ---
Author Organization [employer], [facility] Address [address] [place] [address] Care Team Providers Care Power Digger Operator Name Role Phone HIM CCA OTHER NELLY HAYDEN Primary Care Provider [phone] Assessment Encounter Date Assessment Date Assessment LastModified by Organization Details LastModified Time 08/09/2025 08/09/2025 I provided real -time medical direction via phone for this encounter and was available for additional phone-based assistance as needed. I have reviewed and agree with the Assessment and Plan as documented by the Granite Polisher Machine. Patient given the opportunity to ask questions. As per above, patient with h/o breast cancer several years ago, s/p lumpectomy and radiation. Has frequent mammograms all negative to date. Saw her PCP last week as she has developed pain at the site and her PCP recommended a mammogram however patient declined as she has one scheduled for Dec. Taking Tylenol Per out and out cigar maker hand on the scene, VSS< AF. No evidence of infection or actionable lesion by this service. Please read the out and out cigar maker hand note for their exam findings. Impression and plan: Pain at surgical site. Differential diagnosis is broad and outside the scope of this service for diagnostics. Thru lens matcher, we explained that she should get the mammogram and the one Dec could be cancelled or rescheduled. Also acknowledged her anxiety about the pain that she thinks is recurrent breast cancer. Advised Motrin alternating with Tylenol. She declined Toradol as she does not like shots, injections. Allergies: Reviewed PCP f/u: We discussed the diagnostic uncertainty of home visits and the risk associated with this. In this case, the patient and I felt this to be an acceptable and reasonable amount of risk given the benefit of avoiding an ED visit. We discussed the need to seek care urgently/emergentl y in the setting of any new or worsening serious symptoms, particularly fever chills lightheadedness altered mental status [email or web address] Not available 08/09/2025 12:58:55 Plan of Treatment Reminders Order Date Submit Date Provider Last Modified By Organization Details Last Modified Time Details Appointments None recorded . Lab None recorded . Referral None recorded . Procedures None recorded . Surgeries None recorded . Imaging None recorded . Medication Orders Motrin IB 200 mg tablet 025 08/09/20 25 [facility] [id number] [employer], [address] [place], [address], 5 10:28:04 Patient TargetsNo targets recorded. Patient InstructionsNo instructions recorded. Reason for Referral None Reported. Medical Equipment None Reported. Allergies Allergen ID Allergen Name Allergen Category Reaction Reaction Severity Criticality Documentation Date Start Date Code Code System Note Provider Name and Address Organization Details Recorded Time 14390 acetamino phen / oxycodone medicatio n Not available Not available Not available 08/09/2025 57553 3 RxNorm Not Available [facility] - production 08:46:16 Medications Name Sig Start Date Stop Date Status Note LastModified by Organization Details LastModified Time cyclobenzap rine 10 mg tablet TAKE 1 TABLET BY MOUTH DAILY AT BEDTIME NEEDED active Not Available Not Available No t Available buspirone 5 mg tablet TAKE 1 TABLET BY MOUTH TWICE DAILY FOR SYMPTOMS OR ANXIETY active Not Available Not Available No t Available nitrofurant oin macrocrysta l 50 mg capsule TAKE 1 CAPSULE ORALLY 2 TIMES A DAY FOR 5 DAYS MUST ADMINISTE R WITH A MEAL/FOOD 08/09 completed Not Available Not Available Not Available levothyroxi ne 100 mcg tablet TAKE 1 TABLET BY MOUTH EVERY DAY active Not Available Not Available No t Available lorazepam 0.5 mg tablet TAKE 1-2 TABLETS BY MOUTH BEFORE TRAVEL DIRECTED active Not Available Not Available No t Available exemestane 25 mg tablet TAKE 1 TABLET BY MOUTH DAILY active Not Available Not Available No t Available cephalexin 500 mg capsule TAKE 1 CAPSULE BY MOUTH TWICE A DAY 08/09 completed Not Available Not Available Not Available nitrofurant oin macrocrysta l 100 mg capsule TAKE 1 CAPSULE BY MOUTH TWICE A DAY FOR 5 DAYS WITH FOOD 08/09 completed Not Available Not Available Not Available fluoxetine 10 mg capsule TAKE 1 CAPSULE BY MOUTH DAILY FOR SYMPTOMS OR DEPRESSIO N active Not Available Not Available No t Available gabapentin 300 mg capsule TAKE 1 CAPSULE BY MOUTH DAILY AT BEDTIME active Not Available Not Available No t Available sertraline 25 mg tablet TAKE 1 TABLET BY MOUTH DAILY active Not Available Not Available No t Available hydrochloro thiazide 25 mg tablet TAKE 1 TABLET BY MOUTH ONCE DAILY active Not Available Not Available No t Available lorazepam 1 mg tablet TAKE 1 TABLET BY MOUTH EVERY DAY NEEDED FOR SEVERE ANXIETY/P ANIC DISORDER active Not Available Not Available No t Available polyethylen e glycol 3350 17 gram/dose oral powder MIX 17 GRAMS (1 CAPFUL) IN BEVERAGE AND TAKE BY MOUTH ONCE A DAY active Not Available Not Available No t Available calcitriol 0.25 mcg capsule TAKE 1 CAPSULE BY MOUTH 3 TIMES A DAY active Not Available Not Available No t Available naproxen 500 mg tablet TAKE 1 TABLET BY MOUTH EVERY 12 HOURS WITH FOOD OR MILK NEEDED active Not Available Not Available No t Available cyclobenzap rine 5 mg tablet TAKE 1 TABLET BY MOUTH TWICE A DAY FOR 5 DAYS active Not Available Not Available No t Available Senexon-S 8.6 mg-50 mg tablet TAKE 1 TABLET BY MOUTH AT BEDTIME active Not Available Not Available No t Available Vitals Date Recorded Body weight Body height Respiratory rate Oxygen saturation Heart rate Body temperature Systolic And Diastolic Provider Name and Address Organization Details Last Updated DateTime 5 99492.9 6 g 157.48 cm 16 /min 97 % 77 /min 97.4 [degF] 160/84 mm[Hg] Not Available [employer] - production 5 10:18:43 Social History None recorded. Functional Status None recorded. Mental Status None recorded. Family History Nothing Reported. Medical History No medical history recorded. Gynecological HistoryNo gynecological history recorded. Obstetrics History GPAL:G 0 P 0 0 0 0 Past Encounters Encounter ID Performer Location Encounter Start Date Encounter Closed Date Diagnosis/Indication Diagnosis SNOMED-CT Code Diagnosis ICD10 Code Diagnosis IMO Codes Diagnosis Note [id number] Unique Reece MD [facility] Medical [facility] [address] [place] [address] 08/09/2025 10:18:38 08/09/2025 13:31:55 Pain 04630020 R52 [id number] Health Concerns Section Related Observation LastModified by Organization Detai ls LastModified Time None Recorded Concern Status LastModified by Organization Details LastModified Time None Recorded Advance Directives Directive None Recorded Payers Insurance Date Sequence Insurance Name Policy Number Policy Tuttle Covered Member ID Tuttle Member ID Guarantor Name 08/09/2025 1 [facility] - DOS ON OR AFTER 2023 - DUAL ELIGIBLE - SKILLED NURSING OPTIONS AND ONE CARE (MEDICARE REPLACEMENT/ADV ANTAGE - HMO) Carrington Queen [id number] Carrington Queen Notes Date Note Type Note Provider Name and Address Organization Details Recorded Time 08/09/2025 text/html CRC Nurse Triage Notes (Aleta Recinos): Reason For Request: left side pain Denies: Unrestrained drive or passenger involved in a MVC with air bag deployment, spider windshield and pain post-accident Fall from standing or greater than 3ft with head strike and loss of consciousness Electrocution (lightning strikes, appliances etc) Ingestions of poisons substances, tide pods, plants, etc. Penetrating trauma from blunt object with bleeding Trauma with blunt object that is impaled Falls while on anticoagulants Bat bite/Exposure Lacerations that are actively bleeding Table saw or mechanical injury to hands/fingers Chief Complaints: Abdominal Pain PMH: Chronic Back Pain, Hypertension PMH Reviewed at 08/09/2025:46 Allergies Reviewed at 08/09/2025 - 08:46 Pain Assessment: Level 8 out of 10 Comments: 65 y.o female complains of Abdominal Pain Call completed with lens matcher services. She has left side pain on the back. She has had the pain for a week. She stated she had surgery on the area , years ago, but did not remember the type. She is 8/10 pain level. She has not taken anything for the pain. She has not had any falls, repetitive movement, or injury in the past few days. She has no changes in her She has no CKD and does not take blood thinners She has not used ice but has used warm backs. I provided information on the mobile health provider response time and advised the patient and/or caregiver to monitor reported signs and symptoms. I discussed the warning signs of when to seek emergency care. .................... .................... .................... .................... .................... .................... .................... . Granite Polisher Machine Note From Jefferson Kraus: [facility] visit for a female patient with complaint of left side and arm pain. Seafood Fisherman services utilized due to Indonesian language barrier. Patient reports onset about one week ago. Patient notes history of breast cancer with a lumpectomy on that side a few years ago. Patient reports no complications since the surgery. Patient states she called her oncologist and has a mammogram scheduled for October that may be performed sooner. Patient has taken a small dose of Tylenol for this pain yesterday. Patient presents appearing well in no obvious distress. Patient signed consent form for treatment today. Vital signs taken as listed. No fever noted. Affected area examined with nothing externally visible. Patient has a small approximately 2 inch wide surgical decision on the top of her left breast. The pain is reported on the lateral aspect of her rib cage on the left side. Exam under unremarkable. Patient also reporting some pain in the area of her left tricep. Patient denies any falls injuries or exertion. Pain has been going on for about one week. [place] [facility], who ordered 600 mg of ibuprofen given on scene. Patient advised to follow up with oncologist. Reviewed dosage guidelines for Tylenol as well. [facility] [place]ication Orders: Motrin IB 200 mg tablet: Administered .................... .................... .................... .................... .................... .................... .................... . [facility] Consulted: Unique Reece .................... .................... .................... .................... .................... .................... .................... . Disposition: Fulfilled Unique Reece MD [address] [facility],[address] [facility], [place], [address], [employer] Food[employer]ING MEADOWS 08/09/2025 12:59:29 OBGyn Episode No OBEpisode recorded.
--- OUTSIDE RECORDS SUMMARY | 2025-10-26 22:43 | XMS_ITS | Continuity of Care Document ---
Author Organization [facility] Address [address] [place] [address] Care Team Providers Care Tool Keeper Name Role Phone HIM CCA OTHER NELLY HAYDEN Primary Care Provider [phone] Assessment Encounter Date Assessment Date Assessment LastModified by Organization Details LastModified Time 08/09/2025 08/09/2025 I provided real -time medical direction via phone for this encounter and was available for additional phone-based assistance as needed. I have reviewed and agree with the Assessment and Plan as documented by the Sales Research Analyst. Patient given the opportunity to ask questions. As per above, patient with h/o breast cancer several years ago, s/p lumpectomy and radiation. Has frequent mammograms all negative to date. Saw her PCP last week as she has developed pain at the site and her PCP recommended a mammogram however patient declined as she has one scheduled for Dec. Taking Tylenol Per planning lead on the scene, VSS< AF. No evidence of infection or actionable lesion by this service. Please read the planning lead note for their exam findings. Impression and plan: Pain at surgical site. Differential diagnosis is broad and outside the scope of this service for diagnostics. Thru lang interpreter, we explained that she should get the [...] IB 200 mg tablet 025 08/09/20 25 [facility] [address] [employer], [address] [place], [address], 5 10:28:04 Patient TargetsNo targets recorded. Patient InstructionsNo instructions recorded. Reason for Referral None Reported. Medical Equipment None Reported. Allergies Allergen ID Allergen Name Allergen Category Reaction Reaction Severity Criticality Documentation Date Start Date Code Code System Note Provider Name and Address Organization Details Recorded Time 62266 acetamino phen / oxycodone medicatio n Not available Not available Not available 08/09/2025 28573 3 RxNorm Not Available [facility] - production [...] Address Organization Details Last Updated DateTime 5 02255.9 6 g 157.48 cm 16 /min 97 % 77 /min 97.4 [degF] 160/84 mm[Hg] Not Available [facility] - production 5 10:18:43 Social History None [...] ICD10 Code Diagnosis IMO Codes Diagnosis Note [id number] Unique Reece MD [facility] [address] [place] [address] 08/09/2025 10:18:38 08/09/2025 13:31:55 Pain [id number] R52 [id number] Health Concerns Section Related Observation LastModified by Organization Detai ls LastModified Time None Recorded Concern Status LastModified by Organization Details LastModified Time None Recorded Payers Encounter Date Sequence Insurance Name Policy Number Policy Tuttle Covered Member ID Tuttle Member ID Guarantor Name 08/09/2025 1 [facility] - DOS ON OR AFTER 2023 - DUAL ELIGIBLE - CARE HOME OPTIONS AND ONE CARE (MEDICARE REPLACEMENT/ADV ANTAGE - HMO) Carrington Queen [id number] Carrington Queen Notes Date Note Type Note [...] complains of Abdominal Pain Call completed with lang interpreter services. She has left side pain on [...] .................... .................... .................... .................... .................... .................... . Sales Research Analyst Note From Jefferson Kraus: [facility] visit for a female patient with complaint of left side and arm pain. [employer] services utilized due to [place] language barrier. Patient reports onset about one [...] on for about one week. Consulted with [facility], Dr. Reece, who ordered 600 mg of ibuprofen given on scene. Patient advised to follow up with oncologist. Reviewed dosage guidelines for Tylenol as well. [facility] Medication Orders: Motrin IB 200 mg tablet: Administered .................... .................... .................... .................... .................... .................... .................... . [facility] Consulted: Unique Reece .................... .................... .................... .................... .................... .................... .................... . Disposition: Fulfilled Unique Reece MD [address] [facility] [facility], [place], [address], [employer], MING 08/09/2025 12:59:29 OBGyn Episode No OBEpisode recorded.
--- OUTSIDE RECORDS SUMMARY | 2025-10-26 22:43 | XMS_ITS | Clinical Summary ---
Author Organization [facility] Address [address] [place] [address] Phone Care Team Providers Care Real Estate Representative Name Role Phone Brianna Cruz MD Primary Care Provider [phone] Allergies Active Allergy Reactions Criticality Noted Date [...] Last Done Comments Breast Cancer Screening 1958 Colorectal Cancer Screening: Colonoscopy 1958 COVID-19 Vaccine (#1) 1963 DTaP,Tdap,and Td Vaccines (1 - Tdap) 1977 Zoster Vaccines (1 of 2) 1977 Pneumococcal Vaccine: 50+ Ye ars (1 of 1 - PCV) 2008 Osteoporosis Screening (Bone Density Screening) 10/06/2022 Social [...] Hepatitis C Screening abstracted us Historical Provider MD HEALTH MAINTENANCE Final Result from Last 3 Months or Most Recently Relevant to Health Maintenance Insurance [place] - [place] [facility] Member Subscriber Plan / Payer (Ef fective 2024-Present) Name:Carrington Queen Relation to Subscriber:Self Name:Carrington Queen Payer ID:[id number] Group ID:[id number] Type:Not on file Address: [address] [place] [address] Care Teams Real Estate Representative Relationship Specialty Start Date End Date Brianna Cruz MD [address] [place] [address] , [address] [facility] JANET Stevenson PCP - General 10/03/23
--- OUTSIDE RECORDS SUMMARY | 2025-10-26 22:43 | XMS_ITS | Clinical Summary ---
Author Organization [facility] Address [address] [facility] [address] [place] [address] Phone Care Team Providers Care Checkout Operator Name Role Phone Brianna Navarrete MD [...] VACCINE (#1) 2025 COVID-19 VACCINE (1 - 2024-2 6 season) 2025 RSV VACCINE (1 - 1-dose [...] file Insurance MEDICARE PART A & [facility] [place] [address] MEDICARE PART A & B Member Subscriber Plan / Payer ( fective 2010-) Name:Carrington Queen Member ID:[id number] Relation to Subscriber:Self Name:Carrington Queen Subscriber ID:[id number] Payer ID:[id number] Group ID:Not on file Type:Medicare Address: [facility] Outside[facility]in [facility] [address] [place] [phone] [place] MED[place] PART A & B [facility] MEDICARE PART A & B HEALTH MEDICARE PART A & [place] & B HEALTH MEDICARE PART A & B MEDICARE PART A & B [facility] Care Teams Checkout Operator Relationship Specialty Start Date End Date Brianna Navarrete MD [address] [place] [address] PCP - General Internal Medicine 11/16/17 Additional Source Comments The information contained in this document represents components of the legal health record. It is not the complete legal health record.[facility]
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
--- OUTSIDE RECORDS SUMMARY | 2025-10-26 22:43 | XMS_ITS | Encounter Summary ---
Author Organization [facility] Address [address] [facility] [address] [place] [address] Phone Care Team Providers Care Printed Circuit Designer Name Role Phone Brianna Navarrete MD Primary Care Provid er Encounter Details Date Type Department Care Team (Late st Contact Info) Description 05/29/2018 Procedure Pass [facility], [address] [address] Social History Tobacco Use Types Packs/Day Years [...] on filedocumented in this encounter Care Teams Printed Circuit Designer Relationship Specialty Start Date End Date Brianna Navarrete MD [address] [place] [address] PCP - General Internal Medicine 11/16/17 documented as of this encounter Additional Source Comments The information contained in this document represents components of the legal health record. It is not the complete legal health record.[facility]
[2025-10-26 23:40] VITALS: BP 112/71; PULSE 78; RESP 16; TEMP 36.6; O2SAT 96
== END 2025-10-26 23:41 | disposition home or self-care (01) ==
PROVIDERS: Nurse Practitioner Family; Emergency Provider Student in an Organized Health Care Education/Training Program; PCP Internal Medicine
DX: R10.84 Generalized abdominal pain (principal); R10.A1 Flank pain, right side; I10 Essential (primary) hypertension
CPT/HCPCS: 36415; 80048; 80076; 85025; 99283; 99284